=== PATIENT | male | born 1965 | race Hispanic/Latino ===

== ENCOUNTER 2017-08-07 20:34 | Inpatient (IN) | payer OTHER, SELFPAY ==
[~2017-08-07 20:34] MED LIST: ISOVUE-370 76%-LOCM 1 ML ONE
[2017-08-07 20:47] LABS: #Eosinphils 0.4 thou/uL (0.0-0.7); #Lymphocytes 2.6 thou/uL (1.20-3.40); #Monocytes 0.7 thou/uL (0.11-0.59); #Neutrophils 3.7 thou/uL (1.40-6.50); %Basophils 0.6 % (0.0-1.0); %Eosinophils 4.8 % (0.0-10.0); %Lymphocytes 34.6 % (21.0-51.0); %Monocytes 9.6 % (0.0-10.0); %Neutrophils 50.4 % (42.0-75.0); Hemoglobin 13.8 g/dL (14.0-18.0); Mean Corpuscular HGB CONC 33.6 g/dL (32.0-36.0); Mean Corpuscular Hemoglobin 30.5 pg (27.0-31.0); Mean Corpuscular Volume 90.9 fl (80.0-94.0); Mean Platelet Volume 8.1 fL (7.4-10.4); Platelet Count 179 thou/uL (130-400); RBC Distribution Width 12.9 % (11.5-14.5); Red Blood Cell (RBC) Count 4.53 mill/uL (4.70-6.10); White Blood Cell (WBC) Count 7.4 thou/uL (4.8-10.8)
[2017-08-07 20:54] LABS: PTT 28.6 SEC (22.9-36.1); Prothrombin Time 13.8 SEC (12.0-14.7)
[2017-08-07 20:59] LABS: ALT (SGPT) 23 U/L (8-55); AST (SGOT) 17 U/L (5-34); Albumin 4.2 g/dL (3.5-5.0); Alkaline Phosphatase 78 U/L (40-150); Anion Gap 11 mmol/L (10-20); BUN (Urea Nitrogen) 11 mg/dL (8.4-25.7); Bilirubin, Total 0.6 mg/dL (0.2-1.2); Calc. Creatinine Clearance 0 mL/min (70-130); Calcium 9.2 mg/dL (7.8-10.44); Carbon Dioxide 25 mmol/L (22-29); Chloride 106 mmol/L (98-107); Estimated GFR-MDRD Greater than 90; Globulin 3.1 g/dL (2.4-3.5); Glucose 155 mg/dL (70-105); Potassium 4.1 mmol/L (3.5-5.1); Protein, Total 7.3 g/dL (6.0-8.3); Sodium 138 mmol/L (136-145)
[2017-08-07 21:04] LABS: Troponin I Less than 0.010 ng/mL (< 0.028)
--- NOTE | 2017-08-07 21:24 | CT ---
CT HEAD NONCONTRAST: 08/07/17 INDICATION: Left upper extremity weakness. FINDINGS: There is no ventriculomegaly, mass effect, midline shift or acute intracranial hemorrhage. Mild mucos al thickening and paranasal sinuses is present. IMPRESSION: No acute intracranial abnormalities. Telephone call of findings placed at 2040 hours to Mayank Florence of the Emergency Department. Code CR POS: [id number]
--- NOTE | 2017-08-07 21:40 | CT ---
CTA HEAD WITH 3D VOLUME RENDERING CTA NECK WITH 3D VOLUME RENDERING 08/07/17 CLINICAL HISTORY: Left upper extremity weakness, tinnitus, headache, left side weakness. FINDINGS: There is no obvious occlusion or high grade stenosis involving arterial system of [place]. T he bilateral common and cervical internal carotid arteries reveals no high grade stenosis or occlusio n. There is a diminutive caliber of the right vertebral artery which along with beam hardening artifact precludes its reliable assessment. The left vertebral artery is grossly unremarkable and provides pre dominant supply to the basilar artery. There is mild peripheral calcifications seen at the left carot id bulb. Mild calcifications are seen at the right carotid siphon. Incidental note of granulomatous calcification. IMPRESSION: No significant thrombotic occlusion of the major arterial system of head and neck. Mild vascular dise ase is present. Diminutive caliber of, and superimposed beam hardening artifact does preclude assessm ent of the right vertebral artery. Notification of results placed at 2105 hours, 08/07/17. Code CR POS: [id number]
[2017-08-07] MEDS ORDERED: Labetalol HCl 100 MG/20 ML VIAL ONE (21:46)
[2017-08-07] MEDS ORDERED: Morphine 4 MG/ML VIAL ONE (22:00)
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
[2017-08-08 06:42] VITALS: BMI 42.1
[2017-08-08] MEDS ORDERED: hydrALAZINE 20 MG/ML VIAL SLOW IVP PRN (09:09)
[2017-08-08] MEDS ORDERED: Aspirin 325 mg Enteric Coated Tablet PO SCH (09:30)
[2017-08-08] MEDS ORDERED: Carvedilol 6.25 MG TAB PO SCH ×2 (09:30→21:00)
[2017-08-08] MEDS ORDERED: Amlodipine 10 MG TAB PO SCH (09:30)
[2017-08-08] MEDS ORDERED: traMADol HCl 50 MG TAB PO PRN (09:43)
[2017-08-08] MEDS ORDERED: HYDROcodone/Acetaminophen 5/325 mg Tablet PO PRN (09:45)
--- NOTE | 2017-08-08 11:56 | MRI ---
MRI OF BRAIN WITHOUT CONTRAST: Date: 08/08/17 COMPARISON: 06/27/16. HISTORY: Left upper extremity weakness. Stroke. TECHNIQUE: Multiplanar, multisequence MR images were obtained of the brain without contrast. FINDINGS: There are a few scattered foci of high FLAIR signal in the subcortical and periventricular white darren er, likely secondary to small vessel ischemic disease. No restricted diffusion is seen to suggest an acute infarction. There is no evidence of hydrocephalus, intracranial hemorrhage, or extra-axial flui d collection. The expected flow-voids are present. The corpus callosum, pituitary, and craniocervical junction are unremarkable. The calvarium and overlying soft tissues are unremarkable. There is mucosal thickening in the paranas al sinuses. The mastoid air cells are well aerated. IMPRESSION: 1. No evidence of acute intracranial abnormality. 2. Mild small vessel ischemic disease. POS: [facility]
[2017-08-08 13:39] LABS: Cardiac Risk 4.5 (Less than 4.5); Magnesium 1.9 mg/dL (1.6-2.6); Phosphorus 3.1 mg/dL (2.3-4.7)
[2017-08-08 16:17] VITALS: BP 137/79; TEMP 97.5
[2017-08-08] MEDS ORDERED: Atorvastatin Calcium 10 MG TAB PO SCH (21:00)
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
[2017-08-09] MEDS ORDERED: Non-Formulary Item 1 EACH (Triamterene/Hydrochlorothiazid [Triamterene-Hctz 37.5-25 Mg Cp PO SCH (09:00)
[2017-08-09] MEDS ORDERED: Triamterene/Hydrochlorothiazide 37.5 mg/25 mg Tablet PO SCH (09:00)
[2017-08-09] MEDS ORDERED: Aspirin 325 mg Enteric Coated Tablet PO SCH (09:00)
[2017-08-09] MEDS ORDERED: Amlodipine 10 MG TAB PO SCH (09:00)
[2017-08-09] MEDS ORDERED: Lisinopril 20 MG TAB PO SCH (09:00)
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
== END 2017-08-08 17:50 | DRG 69 ==
LOC: ERS 20:34 → 2SE 08-08 01:13
PROVIDERS: ADMIT Family Medicine; ATTEND Family Medicine
DX: G45.9 Transient cerebral ischemic attack, unspecified (principal); E11.22 Type 2 diabetes mellitus with diabetic chronic kidney disease; K74.60 Unspecified cirrhosis of liver; Z68.41 Body mass index [BMI] 40.0-44.9, adult; I25.2 Old myocardial infarction; J44.9 Chronic obstructive pulmonary disease, unspecified; I12.9 Hypertensive chronic kidney disease with stage 1 through stage 4 chronic kidney disease, or unspecified chronic kidney disease; N18.9 Chronic kidney disease, unspecified; M10.9 Gout, unspecified; F17.210 Nicotine dependence, cigarettes, uncomplicated; Z79.84 Long term (current) use of oral hypoglycemic drugs; I25.10 Atherosclerotic heart disease of native coronary artery without angina pectoris; D63.8 Anemia in other chronic diseases classified elsewhere; E66.01 Morbid (severe) obesity due to excess calories; E78.5 Hyperlipidemia, unspecified; R29.709 NIHSS score 9
CPT/HCPCS: 36415; 36416; 70450; 70496; 70498; 70551; 80053; 80061; 82553; 83735; 84100; 84484; 85025; 85610; 85730; 93005; 93306; 96374; 96375; J2270

== ENCOUNTER 2017-10-26 20:30 | Observation (INO) | payer OTHER, SELFPAY ==
[2017-10-26] MEDS ORDERED: Nitroglycerin 2% Ointment 1 INCH/1 GM Packet ONE (20:55)
[2017-10-26 21:02] LABS: #Basophils 0.1 thou/uL (0.0-0.2); #Eosinphils 0.3 thou/uL (0.0-0.7); #Lymphocytes 2.3 thou/uL (1.20-3.40); #Monocytes 0.7 thou/uL (0.11-0.59); #Neutrophils 4.5 thou/uL (1.40-6.50); %Basophils 0.8 % (0.0-1.0); %Eosinophils 3.9 % (0.0-10.0); %Lymphocytes 29.5 % (21.0-51.0); %Monocytes 8.5 % (0.0-10.0); %Neutrophils 57.3 % (42.0-75.0); Hemoglobin 14.5 g/dL (14.0-18.0); Mean Corpuscular HGB CONC 35.3 g/dL (32.0-36.0); Mean Corpuscular Hemoglobin 32.6 pg (27.0-31.0); Mean Corpuscular Volume 92.4 fL (78.0-98.0); Mean Platelet Volume 7.9 fL (7.4-10.4); Platelet Count 181 thou/uL (130-400); RBC Distribution Width 13.2 % (11.5-14.5); Red Blood Cell (RBC) Count 4.45 mill/uL (4.70-6.10); White Blood Cell (WBC) Count 7.9 thou/uL (4.8-10.8)
--- NOTE | 2017-10-26 21:08 | RAD ---
ONE VIEW CHEST: 10/26/17 HISTORY: Chest pain. COMPARISON: 07/26/16. FINDINGS: Portable upright chest demonstrates a normal cardiac silhouette. The lungs and pleural spaces are joie ar. No pneumothorax or osseous abnormalities. IMPRESSION: No acute cardiopulmonary process. POS: [facility]
[2017-10-26 21:21] LABS: ALT (SGPT) 20 U/L (8-55); AST (SGOT) 16 U/L (5-34); Albumin 3.8 g/dL (3.5-5.0); Alkaline Phosphatase 76 U/L (40-150); Anion Gap 13 mmol/L (10-20); BUN (Urea Nitrogen) 14 mg/dL (8.4-25.7); Bilirubin, Total 0.6 mg/dL (0.2-1.2); CK (CPK) 69 U/L (30-200); Calc. Creatinine Clearance 0 mL/min (70-130); Calcium 8.6 mg/dL (7.8-10.44); Carbon Dioxide 25 mmol/L (22-29); Chloride 107 mmol/L (98-107); Estimated GFR-MDRD 89; Globulin 2.8 g/dL (2.4-3.5); Glucose 163 mg/dL (70-105); Potassium 3.5 mmol/L (3.5-5.1); Protein, Total 6.6 g/dL (6.0-8.3); Sodium 141 mmol/L (136-145)
[2017-10-26 21:25] LABS: CKMB 1.6 ng/mL (0-6.6); Troponin I Less than 0.010 ng/mL (< 0.028)
--- NOTE | 2017-10-26 21:41 | CT ---
CT ANGIO OF CHEST WITH CONTRAST: 10/26/17 Multiple axial tomograms obtained through the chest following pulmonary angio protocol with multiplan ar reconstruction and 3D postprocessing. INDICATIONS: Chest pain. Shortness of breath. History of lung cancer. FINDINGS: Pulmonary arteries show adequate enhancement. No evidence of pulmonary embolus identified. The lungs are clear with no evidence of infiltrate. Mediastinum unremarkable. Thoracic aorta shows no evidence of dissection. Images through the upper abdomen unremarkable. IMPRESSION: 1. No evidence of pulmonary embolus. 2. No acute lung process identified. POS: [facility]
[2017-10-26] MEDS ORDERED: Ondansetron ODT 4 MG TAB ONE (22:08)
[2017-10-27 00:42] LABS: Troponin I 0.011 ng/mL (< 0.028)
[2017-10-27] MEDS ORDERED: Ondansetron ODT 4 MG TAB SL PRN (00:56)
[2017-10-27] MEDS ORDERED: Ondansetron HCl/PF 4 MG/2 ML Vial IVP PRN (00:56)
[2017-10-27] MEDS ORDERED: Acetaminophen 325 MG TAB PO PRN (00:56)
[2017-10-27 01:22] VITALS: BMI 42.1
[2017-10-27] MEDS ORDERED: Nitroglycerin 0.4 MG TAB (25 Tab Bottle) PO PRN (02:18)
[2017-10-27] MEDS ORDERED: PROVENTIL INHALER 6.7 G (200 INHALATIONS) INH PRN (02:18)
[2017-10-27] MEDS ORDERED: Bisacodyl 5 MG TAB PO PRN (02:18)
[2017-10-27] MEDS ORDERED: Bisacodyl 10 MG SUPP PR PRN (02:18)
[2017-10-27] MEDS ORDERED: Senokot 8.6 MG TAB PO PRN (02:18)
[2017-10-27 03:33] LABS: Troponin I 0.017 ng/mL (< 0.028)
[2017-10-27] MEDS: Nitroglycerin 2% Ointment 1 INCH/1 GM Packet TOP SCH ×3 (03:50→20:24)
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
[2017-10-27 04:46] LABS: #Eosinphils 0.4 thou/uL (0.0-0.7); #Lymphocytes 2.5 thou/uL (1.20-3.40); #Monocytes 0.7 thou/uL (0.11-0.59); #Neutrophils 4.3 thou/uL (1.40-6.50); %Basophils 0.4 % (0.0-1.0); %Eosinophils 4.7 % (0.0-10.0); %Lymphocytes 31.3 % (21.0-51.0); %Monocytes 9.2 % (0.0-10.0); %Neutrophils 54.4 % (42.0-75.0); Hemoglobin 13.3 g/dL (14.0-18.0); Mean Corpuscular HGB CONC 34.1 g/dL (32.0-36.0); Mean Corpuscular Hemoglobin 31.7 pg (27.0-31.0); Mean Corpuscular Volume 92.8 fL (78.0-98.0); Mean Platelet Volume 7.7 fL (7.4-10.4); Platelet Count 167 thou/uL (130-400); RBC Distribution Width 13.2 % (11.5-14.5); White Blood Cell (WBC) Count 7.9 thou/uL (4.8-10.8)
[2017-10-27 04:56] LABS: Hemoglobin A1c 6.6 % (4.0-6.0)
[2017-10-27 04:59] LABS: Anion Gap 10 mmol/L (10-20); BUN (Urea Nitrogen) 14 mg/dL (8.4-25.7); Calc. Creatinine Clearance 195 mL/min (70-130); Calcium 8.9 mg/dL (7.8-10.44); Carbon Dioxide 27 mmol/L (22-29); Chloride 105 mmol/L (98-107); Estimated GFR-MDRD Greater than 90; Glucose 149 mg/dL (70-105); Potassium 3.3 mmol/L (3.5-5.1); Sodium 139 mmol/L (136-145)
[2017-10-27] MEDS ORDERED: cloNIDine 0.1 MG TAB PO PRN (07:57)
[2017-10-27] MEDS ORDERED: hydrALAZINE 20 MG/ML VIAL SLOW IVP PRN (07:57)
[2017-10-27] MEDS ORDERED: HumaLOG 300 UNITS/3 ML VIAL SC PRN ×2 (07:59)
[2017-10-27] MEDS ORDERED: Dextrose 50% Abboject 50 ML SYRINGE SLOW IVP PRN (07:59)
[2017-10-27] MEDS ORDERED: Dextrose 5% in Water 1,000 ML IV PRN (07:59)
[2017-10-27 08:17] LABS: Bilirubin Negative (Negative); Blood, Urine Negative (Negative); Clarity CLEAR (Clear); Glucose, Urine (Dipstick) Negative (Negative); Leukocyte Negative (Negative); Nitrite Negative (Negative); Protein, Urine (Dipstick) Negative (Neg-Trace); Urobilinogen 0.2 mg/dL (0.2-1.0); pH, Urine 5.5 (5.0-9.0)
[2017-10-27 08:24] LABS: Specific Gravity, Urine 1.047 (1.002-1.036)
[2017-10-27] MEDS: Lisinopril 20 MG TAB PO SCH (09:04)
[2017-10-27] MEDS: Amlodipine 10 MG TAB PO SCH (09:04)
[2017-10-27] MEDS: Triamterene/Hydrochlorothiazide 37.5 mg/25 mg Tablet PO SCH (09:04)
[2017-10-27] MEDS: metFORMIN 500 MG TAB PO SCH ×2 (09:05→17:45)
[2017-10-27] MEDS: Aspirin 325 mg Enteric Coated Tablet PO SCH (09:05)
[2017-10-27] MEDS: Enoxaparin Sodium 30 MG/0.3 ML SYRINGE SC SCH (09:05)
[2017-10-27] MEDS: Carvedilol 3.125 MG TAB PO SCH ×2 (09:05→20:19)
[2017-10-27] MEDS ORDERED: Regadenoson 0.4 MG/5 ML SYRINGE ONE (14:01)
--- NOTE | 2017-10-27 14:09 | PDOC.EVN ---
Event Note - Event Note Event Note: pt seen and examined. awaiting stress test results.
[2017-10-27] MEDS ORDERED: traMADol HCl 50 MG TAB PO PRN (18:10)
[2017-10-27] MEDS ORDERED: Pravastatin Sodium 20 MG TAB PO SCH (21:00)
[2017-10-28] MEDS: Nitroglycerin 2% Ointment 1 INCH/1 GM Packet TOP SCH ×2 (05:37→12:01)
[2017-10-28] MEDS: metFORMIN 500 MG TAB PO SCH (08:00)
[2017-10-28] MEDS: Enoxaparin Sodium 30 MG/0.3 ML SYRINGE SC SCH (08:01)
[2017-10-28] MEDS: Triamterene/Hydrochlorothiazide 37.5 mg/25 mg Tablet PO SCH (08:01)
[2017-10-28] MEDS: Aspirin 325 mg Enteric Coated Tablet PO SCH (08:01)
[2017-10-28] MEDS: Lisinopril 20 MG TAB PO SCH (08:01)
[2017-10-28] MEDS: Carvedilol 3.125 MG TAB PO SCH (08:01)
[2017-10-28] MEDS: Amlodipine 10 MG TAB PO SCH (08:01)
--- NOTE | 2017-10-28 10:37 | NM ---
CARDIAC SPECT: CLINICAL HISTORY: 52-year-old male with chest pain, coronary artery disease. COPD, hypertension, diabetes, and dyslipidemia. TECHNIQUE: A myocardial perfusion scan was performed using the single isotope two day protocol with 31 mCi techn etium-99m sestamibi injected intravenously for both stress and rest images. Pharmacologic stress with Lexiscan was monitored and interpreted by Dr. Medley. FINDINGS: Homogeneous tracer distribution is seen in the myocardial segments on stress and rest images without fixed or reversible defects. GATED SPECT LVEF: 58%. WALL MOTION EXAM: Normal. IMPRESSION: Normal myocardial perfusion scan. POS: [facility]
[2017-10-28 11:46] VITALS: BP 128/87; TEMP 97.6
--- NOTE | 2017-10-28 19:31 | DIS ---
DATE OF ADMISSION: 10/27/2017 DATE OF DISCHARGE: 10/28/2017 CONDITION AT THE TIME DISCHARGE: Stable and improved. DISCHARGE DIAGNOSES: 1. Chest pain, noncardiac, acute coronary syndrome, ruled out. 2. Hypertension. 3. Noninsulin dependent diabetes mellitus. 4. Chronic obstructive pulmonary disease. 5. Morbid obesity. 6. Chronic kidney disease. 7. Gout. 8. History of myocardial x4. 9. Possible obesity hypoventilation syndrome. DISCHARGE DISPOSITION: Home. DISCHARGE MEDICATIONS: Glucophage 500 mg p.o. b.i.d., Maxzide 37.5/25 mg daily, pravastatin 20 mg da matthew, lisinopril 20 mg daily, Coreg 6.25 mg p.o. b.i.d., aspirin 325 mg daily, amlodipine 10 mg daily, albuterol sulfate as needed inhaler. PROCEDURES DONE IN THE HOSPITAL: 1. Chest x-ray, which is unremarkable. There is no evidence of pneumonia, effusion or edema. 2. CT angio of the thorax, which is negative for any lung pathology or any pulmonary embolism. 3. Nuclear medicine stress test, which is negative for any fixed or reversible ischemia. EF estimat ed at 58%. HISTORY OF PRESENTING ILLNESS: Mr. Liu is a 52-year-old male with comorbidities as mentioned abo ve, who came to the hospital with complaints of chest pain associated with shortness of breath and sw elling. Upon presentation, he was hemodynamically stable and his 12-lead EKG and cardiac enzymes wer e unremarkable. His D-dimer was somewhat elevated, so he underwent a CT angio of the chest which was negative for any pulmonary embolism. Given his multiple risk factors for cardiac disease, he was ad mitted to rule out acute coronary syndrome. He reported that he had a history of left heart catheter ization with one blood vessel blocked to 80%. He recently has been incarcerated, so has not been abl e to follow up with any doctors in the area. Please see admission history and physical for further d etails. HOSPITAL COURSE: The patient's hospital stay was rather unremarkable. He underwent a nuclear medici ne stress test, which was negative. He was given prescriptions for all of his medications as he is a bout to run out. He was referred to one of the free clinics in the community to establish care and f or further medication needs. He is instructed to eat a diabetic healthy diet and he refused consulta tion with a dietitian. He will also benefit from outpatient referral for sleep study to evaluate for possible sleep apnea and/or obesity hypoventilation syndrome. The patient did exhibit some chronic pain, which was treated in the hospital, but he was not discharged on any narcotics. His cardiac enz ymes were trended and remained negative x3. His hemoglobin A1c was checked and it is 6.6 He was seen and examined prior to discharge. PHYSICAL EXAMINATION: VITAL SIGNS: This morning, temperature 97.6, pulse of 52, respirations 20, saturating 96% on room ai r, blood pressure 128/87. GENERAL: No acute distress, walking around in the room. CHEST: Clear to auscultation without any wheezing, rales or rhonchi. CARDIOVASCULAR: Rate and rhythm is regular without any murmur, rubs or gallops. He is instructed for medication compliance as well as followup with a primary care physician. He jacky balized understanding.
[2017-10-29] MEDS ORDERED: Enoxaparin Sodium 40 MG/0.4 ML SYRINGE SC SCH (09:00)
--- NOTE | 2017-11-02 16:09 | EKG ---
Test Reason : Blood Pressure : / mmHG Vent. Rate : 079 BPM Atrial Rate : 079 BPM P-R Int : 156 ms QRS Dur : 086 ms QT Int : 418 ms P-R-T Axes : 045 061 072 degrees QTc Int : 479 ms Normal sinus rhythm Normal ECG Confirmed by GUICHO HERNANDEZ ([id number]), makeup editor JAMIN SHETH ([id number]) on 11/02/2017 4:09:05 PM Referred By: Confirmed By:GUICHO HERNANDEZ
== END 2017-10-28 12:56 | disposition home or self-care (01) ==
LOC: ERS 20:30 → 2SW 10-27 00:49
PROVIDERS: ADMIT Internal Medicine; ATTEND Internal Medicine
DX: R07.89 Other chest pain (principal); J44.9 Chronic obstructive pulmonary disease, unspecified; E66.01 Morbid (severe) obesity due to excess calories; E11.22 Type 2 diabetes mellitus with diabetic chronic kidney disease; I12.9 Hypertensive chronic kidney disease with stage 1 through stage 4 chronic kidney disease, or unspecified chronic kidney disease; N18.9 Chronic kidney disease, unspecified; F17.210 Nicotine dependence, cigarettes, uncomplicated; M10.9 Gout, unspecified; Z79.84 Long term (current) use of oral hypoglycemic drugs; Z79.899 Other long term (current) drug therapy; Z79.82 Long term (current) use of aspirin; Z68.41 Body mass index [BMI] 40.0-44.9, adult
CPT/HCPCS: 36415; 36416; 51798; 71045; 71275; 78452; 80048; 80053; 81003; 82553; 83036; 84484; 85025; 87324; 87449; 93005; 93017; 94760; 96372; 96374; A4216; A9500; G0378; J1650; J2270; J2785; Q0162

== ENCOUNTER 2017-11-02 20:17 | Emergency (ER) | payer SELFPAY ==
[2017-11-02 20:54] LABS: #Eosinphils 0.4 thou/uL (0.0-0.7); #Lymphocytes 2.4 thou/uL (1.20-3.40); #Monocytes 0.7 thou/uL (0.11-0.59); #Neutrophils 3.7 thou/uL (1.40-6.50); %Basophils 0.4 % (0.0-1.0); %Eosinophils 5.4 % (0.0-10.0); %Lymphocytes 32.8 % (21.0-51.0); %Monocytes 9.9 % (0.0-10.0); %Neutrophils 51.4 % (42.0-75.0); Hemoglobin 13.7 g/dL (14.0-18.0); Mean Corpuscular HGB CONC 34.4 g/dL (32.0-36.0); Mean Corpuscular Volume 93.2 fL (78.0-98.0); Mean Platelet Volume 8.3 fL (7.4-10.4); Platelet Count 163 thou/uL (130-400); RBC Distribution Width 12.8 % (11.5-14.5); Red Blood Cell (RBC) Count 4.29 mill/uL (4.70-6.10); White Blood Cell (WBC) Count 7.2 thou/uL (4.8-10.8)
[2017-11-02 21:14] LABS: ALT (SGPT) 18 U/L (8-55); AST (SGOT) 15 U/L (5-34); Albumin 3.7 g/dL (3.5-5.0); Alkaline Phosphatase 77 U/L (40-150); Anion Gap 13 mmol/L (10-20); BUN (Urea Nitrogen) 16 mg/dL (8.4-25.7); Bilirubin, Total 0.5 mg/dL (0.2-1.2); CK (CPK) 86 U/L (30-200); Calc. Creatinine Clearance 0 mL/min (70-130); Calcium 8.5 mg/dL (7.8-10.44); Carbon Dioxide 23 mmol/L (22-29); Chloride 107 mmol/L (98-107); Estimated GFR-MDRD 75; Globulin 2.8 g/dL (2.4-3.5); Glucose 203 mg/dL (70-105); Lipase 64 U/L (8-78); Magnesium 1.9 mg/dL (1.6-2.6); Potassium 3.5 mmol/L (3.5-5.1); Protein, Total 6.5 g/dL (6.0-8.3); Sodium 139 mmol/L (136-145)
[2017-11-02] MEDS ORDERED: Meclizine HCl 25 MG TAB ONE (22:36)
[2017-11-02] MEDS ORDERED: predniSONE 20 MG TAB ONE (22:36)
--- NOTE | 2017-11-02 22:43 | RAD ---
SINGLE VIEW OF THE CHEST: 11/02/17 COMPARISON: 10/26/17. HISTORY: Chest pain in the middle of the chest. FINDINGS: Single view of the chest shows a cardiomediastinal silhouette which is upper limits of normal in size . there is a calcified left hilar lymph node There is no evidence of consolidation, mass or pleural e ffusion. Degenerative changes are see in the spine. IMPRESSION: No evidence of acute cardiopulmonary disease. POS: [facility]
== END 2017-11-02 23:22 | disposition home or self-care (01) ==
LOC: ERS 20:17
DX: R07.2 Precordial pain (principal); R42 Dizziness and giddiness; G89.29 Other chronic pain; J44.9 Chronic obstructive pulmonary disease, unspecified; M10.9 Gout, unspecified; I12.9 Hypertensive chronic kidney disease with stage 1 through stage 4 chronic kidney disease, or unspecified chronic kidney disease; E11.22 Type 2 diabetes mellitus with diabetic chronic kidney disease; N18.9 Chronic kidney disease, unspecified; I25.2 Old myocardial infarction; G43.909 Migraine, unspecified, not intractable, without status migrainosus; F41.9 Anxiety disorder, unspecified; F32.9 Major depressive disorder, single episode, unspecified; F17.210 Nicotine dependence, cigarettes, uncomplicated; Z71.6 Tobacco abuse counseling; Z86.73 Personal history of transient ischemic attack (TIA), and cerebral infarction without residual deficits; Z79.84 Long term (current) use of oral hypoglycemic drugs
CPT/HCPCS: 71045; 80053; 82550; 83690; 83735; 85025; 85379; 93005; 99406; J7506; J7620

== ENCOUNTER 2018-03-02 01:12 | Observation (INO) | payer SELFPAY ==
[2018-03-02] MEDS ORDERED: Mag-Al 1200 mg/1200 mg/30 ML UDCUP ONE (01:23)
[2018-03-02] MEDS ORDERED: Lidocaine Viscous Sol 2% 15 ml UD Cup ONE (01:23)
[2018-03-02 01:51] LABS: #Eosinphils 0.4 thou/uL (0.0-0.7); #Lymphocytes 2.2 thou/uL (1.20-3.40); #Monocytes 0.7 thou/uL (0.11-0.59); #Neutrophils 4.8 thou/uL (1.40-6.50); %Basophils 0.6 % (0.0-1.0); %Eosinophils 4.8 % (0.0-10.0); %Lymphocytes 27.3 % (21.0-51.0); %Monocytes 8.1 % (0.0-10.0); %Neutrophils 59.3 % (42.0-75.0); Hemoglobin 14.3 g/dL (14.0-18.0); Mean Corpuscular HGB CONC 32.8 g/dL (32.0-36.0); Mean Corpuscular Hemoglobin 31.2 pg (27.0-31.0); Mean Corpuscular Volume 94.9 fL (78.0-98.0); Mean Platelet Volume 8.8 fL (7.4-10.4); Platelet Count 173 thou/uL (130-400); RBC Distribution Width 12.7 % (11.5-14.5); Red Blood Cell (RBC) Count 4.58 mill/uL (4.70-6.10); White Blood Cell (WBC) Count 8.1 thou/uL (4.8-10.8)
[2018-03-02 02:16] LABS: ALT (SGPT) 26 U/L (8-55); AST (SGOT) 20 U/L (5-34); Albumin 3.6 g/dL (3.5-5.0); Alkaline Phosphatase 69 U/L (40-150); Anion Gap 14 mmol/L (10-20); BUN (Urea Nitrogen) 11 mg/dL (8.4-25.7); Bilirubin, Total 0.3 mg/dL (0.2-1.2); Calc. Creatinine Clearance 0 mL/min (70-130); Calcium 8.8 mg/dL (7.8-10.44); Carbon Dioxide 17 mmol/L (22-29); Chloride 107 mmol/L (98-107); Estimated GFR-MDRD 78; Globulin 2.9 g/dL (2.4-3.5); Glucose 281 mg/dL (70-105); Lipase 58 U/L (8-78); Potassium 4.1 mmol/L (3.5-5.1); Protein, Total 6.5 g/dL (6.0-8.3); Sodium 134 mmol/L (136-145)
[2018-03-02 02:18] LABS: CKMB 1.7 ng/mL (0-6.6)
[2018-03-02 02:27] LABS: Troponin I Less than 0.010 ng/mL (< 0.028)
[2018-03-02] MEDS ORDERED: Nitroglycerin 2% Ointment 1 INCH/1 GM Packet ONE (02:59)
[2018-03-02] MEDS ORDERED: HYDROcodone/Acetaminophen 5/325 mg Tablet ONE (03:39)
[2018-03-02] MEDS ORDERED: Ketorolac Tromethamine 30 MG/ML VIAL ONE (05:54)
[2018-03-02 06:26] LABS: Acetaminophen Less than 6.0 mcg/mL (10.0-30.0); Alcohol Less than 10 mg/dL (Less than 10); Salicylate Less than 8.0 mg/dL (15.0-30.0)
[2018-03-02 06:30] LABS: Bilirubin Negative (Negative); Blood, Urine Negative (Negative); Clarity CLEAR (Clear); Glucose, Urine (Dipstick) >=1000 mg/dL (Negative); Leukocyte Negative (Negative); Nitrite Negative (Negative); Protein, Urine (Dipstick) 30 mg/dL (Neg-Trace); Specific Gravity, Urine 1.043 (1.002-1.036); Urobilinogen 0.2 mg/dL (0.2-1.0)
[2018-03-02 06:33] LABS: Bacteria/HPF None Seen HPF (None Seen); Hyaline Casts/LPF 0-3 HYALINE CAST LPF (0-3 Hyaline); Pathc Cast-AUWi Flag 0.72 (0-2.49); RBC/HPF 0-3 HPF (0-3); Squamous Epithelial 0-3 HPF (0-3); WBC/HPF 0-3 HPF (0-3)
[2018-03-02 06:44] LABS: Amphetamine Not Detected (NotDetected); Barbiturates Screen Not Detected (NotDetected); Benzodiazepine Screen Not Detected (NotDetected); Cocaine Metabolite Screen Not Detected (NotDetected); Medtox Control Line Valid? VALID (VALID); Medtox Reader # READER 4; Methadone Not Detected (NotDetected); Methamphetamine Not Detected (NotDetected); Opiate Screen Not Detected (NotDetected); Oxycodone Screen Not Detected (NotDetected); Phencyclidine (PCP) Not Detected (NotDetected); THC/Cannabinoid Screen Not Detected (NotDetected); Tricyclic Screen Not Detected (NotDetected)
[2018-03-02] MEDS ORDERED: Ondansetron PF 4 MG/2 ML Vial IVP PRN (06:55)
[2018-03-02] MEDS ORDERED: Ondansetron ODT 4 MG TAB PO PRN (06:56)
[2018-03-02] MEDS ORDERED: Acetaminophen 325 MG TAB PO PRN ×2 (06:56→09:29)
[2018-03-02 07:34] VITALS: BMI 46.1
[2018-03-02] MEDS ORDERED: HumaLOG 300 UNITS/3 ML VIAL SC PRN ×2 (09:29)
[2018-03-02] MEDS ORDERED: predniSONE 20 MG TAB PO STA (09:29)
[2018-03-02] MEDS ORDERED: Dextrose 50% Abboject 50 ML SYRINGE SLOW IVP PRN (09:29)
[2018-03-02] MEDS ORDERED: Dextrose 5% in Water 1,000 ML IV PRN (09:29)
[2018-03-02] MEDS ORDERED: Guaifenesin DM 100-10/5 ML UDCUP PO PRN (09:29)
[2018-03-02] MEDS ORDERED: Enoxaparin Sodium 40 MG/0.4 ML SYRINGE SC SCH (09:45)
[2018-03-02] MEDS ORDERED: Amlodipine 10 MG TAB PO SCH (09:45)
[2018-03-02] MEDS ORDERED: Aspirin 325 mg Enteric Coated Tablet PO SCH (09:45)
[2018-03-02] MEDS ORDERED: Triamterene/Hydrochlorothiazid 75 mg/50 mg Tablet PO SCH (09:45)
[2018-03-02] MEDS ORDERED: Lisinopril 20 MG TAB PO SCH (09:45)
[2018-03-02 10:00] LABS: Troponin I 0.451 ng/mL (< 0.028)
--- NOTE | 2018-03-02 10:36 | RAD ---
PORTABLE CHEST 1 VIEW: DATE: 03/02/2018. TIME: 1:32 a.m. HISTORY: Chest pain. FINDINGS: Comparison is made with the exam of 11/02/2017. The heart size is borderline. No focal areas of conso lidation, pneumothoraces, gunjan pulmonary edema, or pleural effusions are seen. IMPRESSION: No acute process. POS: [facility]
--- NOTE | 2018-03-02 11:06 | CT ---
PRELIMINARY REPORT/[facility]/EMERGENTY AFTER-HOURS PROCEDURE CT Angiography Chest With Intravenous Contrast EXAM DATE/TIME: 03/02/2018 4:05 AM CLINICAL HISTORY: 52 years old, male; Pain; Chest pain; Type not specified; Patient HX: Er7, previous on pacs, er dr melendez quests a late pe study to also rule out disection. M52 presents to ed via ems C/O sudden onset cp whi le he was laying down watching tv, but first began feeling SOB around 13: 30. Ems gave aspirin, nitro, and 2 duonebs en route. Room air at 92%, got up to 98%. PT reports pain to l arm, centered on sternum, chest tender to palpation. PT reports he has had three heart attacks (does not know when), b ut reports he has never felt like this before. PT reports he has been coughing up more phlegm lately. PT also reports his legs and hands have been swelling more lately, and confirms he takes water pills . Ems reports PT admits has not been very compliant w/ his meds lately. PT does not use o2 at home, b ut normally takes x4 breathing treatments per day. PT received stress test in september or october. PT report s x2 days back tender he was having diarrhea, but has not had it since then, denies vomiting and fever. Pmhx of asthma and copd. ; Additional info: Er dr looking for pe vs disection. Pe obliques provided. Sub o ptimal- late contrast for pe TECHNIQUE: Axial computed tomographic angiography images of the chest with intravenous contrast using CT angiogr aphy protocol. MIP and 3D reconstructed images were created and reviewed. COMPARISON: No relevant prior studies available. FINDINGS: Pulmonary arteries: Contrast bolus is suboptimal but adequate to evaluate the pulmonary arteries. Allie luation of the distal subsegmental pulmonary arteries in the lower lungs is limited by artifact. No e vidence of PE. Aorta: Normal aorta. Lungs: Lungs are clear allowing for expiratory phase imaging. Pleural space: Normal. No pneumothorax. No pleural effusion. Heart: Normal. No cardiomegaly. No pericardial effusion. Mediastinum: Esophagus is unremarkable. Bones/joints: Unremarkable. No acute fracture. Soft tissues: Unremarkable. Lymph nodes: Unremarkable. No enlarged lymph nodes. IMPRESSION: No acute findings. CT Angiography Abdomen With Intravenous Contrast EXAM DATE/TIME: 03/02/2018 4:05 AM TECHNIQUE: Axial computed tomographic angiography images of the abdomen with intravenous contrast material, incl uding non-contrast images if performed. MIP and/or 3D reconstructed images were created and reviewed. COMPARISON: No relevant prior studies available. FINDINGS: Lungs: Unremarkable. No consolidation. VASCULATURE: Aorta: Abdominal aorta is minimally atherosclerotic. No aneurysm or acute aortic syndrome. Celiac Trunk and Mesenteric Arteries: No occlusion or significant stenosis. Renal Arteries: No occlusion or significant stenosis. ABDOMEN: Liver: Normal. No mass. Gallbladder and bile ducts: Normal. No calcified stones. No ductal dilation.Pancreas: Normal. No duct al dilation. Spleen: Normal. No splenomegaly. Adrenals: Unremarkable. Kidneys and ureters: 3 cm heterogeneous right renal lesion does not meet strict CT criteria for a cys t and is indeterminate. Neoplasm not excluded. Stomach and bowel: Unremarkable. No obstruction. No mucosal thickening. Appendix: Normal appendix. Intraperitoneal space: Unremarkable. No free air. No significant fluid collection. Bones/joints: Unremarkable. No acute fracture. No dislocation. Soft tissues: Unremarkable. Lymph nodes: Unremarkable. No enlarged lymph nodes. IMPRESSION: 3 cm heterogeneous right renal lesion does not meet strict CT criteria for a cyst and is indeterminat e. Neoplasm not excluded. Thank you for allowing us to participate in the care of your patient. Dictated and Authenticated by: Get Pierre MD 03/02/2018 5:25 AM Central Time ([place] & [place]) FINAL REPORT EMERGENT AFTER HOURS CT ANGIO OF CHEST AND ABDOMEN PERFORMED WITH INTRAVENOUS CONTRAST ENHANCEMENT WI TH 3D RECONSTRUCTIONS: HISTORY: Chest pain, shortness of breath. Also, a history of some diarrhea 2 days prior to admission. This w as done per the aortic dissection protocol. FINDINGS: Lungs show some mixed areas of slight ground-glass opacity and more lucent lung. Some of these martines es could be related to air trapping. Findings are somewhat nonspecific. There is no significant mediastinal or hilar lymphadenopathy noted. Once again, there is some calcif ication just lateral to the main pulmonary artery trunk. There are coronary artery calcifications noted. Contrast opacification is suboptimal. I can make no real comment on the pulmonary arteries. No obvi ous large embolus seen. The thoracic aorta is normal in caliber without signs of dissection. Contra st is felt to be adequate for evaluation for dissection. CT ANGIO OF ABDOMEN PERFORMED WITH CONTRAST: The liver, spleen, pancreas, and gallbladder regions appear unremarkable on this angiograph phase exa m. Right and left adrenal glands are normal in appearance. Right and left kidneys are normal in size. There is an incompletely characterized hypodense mass involving the posterior cortex of the more mid pole region of the right kidney. It measures approximately 3 cm in size. The margins are somewhat i ll-defined on this examination. The CT Hounsfield unit numbers do not definitely correspond to a cys t with numbers of approximately 21. It does appear when compared to the previous 07/26/2016 study to perhaps be slightly increased in size, although the difference is fairly minimal. There is no signif icant periaortic or mesenteric adenopathy. Angiographic portion of this exam shows a normal-caliber aorta without dissection. IMPRESSION: 1. No evidence of aortic aneurysm or dissection. 2. A 3 cm indeterminate right renal mass showing perhaps some very slightly interval increase in siz e as compared to th 07/26/2016 study. Further evaluation with CT using renal mass protocol is recomm ended. 3. This report is in agreement with the temporary report issued by [facility]. POS: [facility]
[2018-03-02 11:50] VITALS: BP 134/74; TEMP 98.3
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
[2018-03-02] MEDS ORDERED: ISOVUE-370 76%-LOCM 1 ML ONE (14:24)
[2018-03-02] MEDS ORDERED: metFORMIN 500 MG TAB PO SCH (17:00)
[2018-03-02] MEDS ORDERED: Carvedilol 3.125 MG TAB PO SCH (21:00)
[2018-03-02] MEDS ORDERED: Famotidine 20 MG TAB PO SCH (21:00)
[2018-03-02] MEDS ORDERED: Senokot S 8.6-50 MG TAB PO PRN (21:00)
[2018-03-02] MEDS ORDERED: Simvastatin 5 MG TAB PO SCH (21:00)
[2018-03-03] MEDS ORDERED: Amlodipine 10 MG TAB PO SCH (09:00)
[2018-03-03] MEDS ORDERED: Triamterene/Hydrochlorothiazid 75 mg/50 mg Tablet PO SCH (09:00)
[2018-03-03] MEDS ORDERED: Enoxaparin Sodium 40 MG/0.4 ML SYRINGE SC SCH (09:00)
[2018-03-03] MEDS ORDERED: Aspirin 325 mg Enteric Coated Tablet PO SCH (09:00)
[2018-03-03] MEDS ORDERED: Lisinopril 20 MG TAB PO SCH (09:00)
--- NOTE | 2018-03-14 17:04 | EKG ---
Test Reason : Blood Pressure : / mmHG Vent. Rate : 104 BPM Atrial Rate : 104 BPM P-R Int : 150 ms QRS Dur : 086 ms QT Int : 368 ms P-R-T Axes : 042 067 049 degrees QTc Int : 483 ms Sinus tachycardia with occasional Premature ventricular complexes Otherwise normal ECG Confirmed by GUICHO HERNANDEZ ([id number]), staff editor СВЕТЛАНА SUMMERS ([id number]) on 03/14/2018 5:04:09 PM Referred By: Confirmed By:GUICHO HERNANDEZ
--- NOTE | 2018-03-14 17:04 | EKG ---
Test Reason : Blood Pressure : / mmHG Vent. Rate : 086 BPM Atrial Rate : 086 BPM P-R Int : 166 ms QRS Dur : 092 ms QT Int : 366 ms P-R-T Axes : 050 064 098 degrees QTc Int : 437 ms Sinus rhythm with frequent Premature ventricular complexes Nonspecific T wave abnormality Abnormal ECG Confirmed by GUICHO HERNANDEZ ([id number]), production editor СВЕТЛАНА SUMMERS ([id number]) on 03/14/2018 5:04:10 PM Referred By: Confirmed By:GUICHO HERNANDEZ
== END 2018-03-02 15:49 | disposition home or self-care (01) ==
LOC: ERS 01:12 → 2SW 05:45
PROVIDERS: ADMIT Internal Medicine; ATTEND Internal Medicine
DX: J44.1 Chronic obstructive pulmonary disease with (acute) exacerbation (principal); I10 Essential (primary) hypertension; E11.9 Type 2 diabetes mellitus without complications; E66.9 Obesity, unspecified; E78.5 Hyperlipidemia, unspecified; I25.10 Atherosclerotic heart disease of native coronary artery without angina pectoris; Z87.891 Personal history of nicotine dependence; Z79.84 Long term (current) use of oral hypoglycemic drugs; Z79.899 Other long term (current) drug therapy
CPT/HCPCS: 36415; 36416; 71045; 71275; 80053; 80306; 80307; 81003; 81015; 82553; 83690; 83880; 84484; 85025; 90471; 90686; 93005; 94640; 94760; 96361; 96372; 96374; G0008; G0378; J1650; J1885; J7506; J7620

== ENCOUNTER 2018-08-24 17:46 | Emergency (ER) | payer SELFPAY ==
[2018-08-24] MEDS ORDERED: Aspirin Chewable 81 MG TAB ONE (18:10)
[2018-08-24] MEDS ORDERED: Nitroglycerin 0.4 MG TAB 1 EACH ONE (18:12)
[2018-08-24 18:23] LABS: #Basophils 0.1 thou/uL (0.0-0.2); #Eosinphils 0.3 thou/uL (0.0-0.7); #Lymphocytes 2.2 thou/uL (1.20-3.40); #Monocytes 0.6 thou/uL (0.11-0.59); #Neutrophils 3.6 thou/uL (1.40-6.50); %Eosinophils 4.4 % (0.0-10.0); %Lymphocytes 32.4 % (21.0-51.0); %Monocytes 9.1 % (0.0-10.0); %Neutrophils 53.2 % (42.0-75.0); Hemoglobin 15.3 g/dL (14.0-18.0); Mean Corpuscular HGB CONC 33.5 g/dL (32.0-36.0); Mean Corpuscular Hemoglobin 30.6 pg (27.0-31.0); Mean Corpuscular Volume 91.4 fL (78.0-98.0); Mean Platelet Volume 8.9 fL (7.4-10.4); Platelet Count 159 thou/uL (130-400); RBC Distribution Width 12.3 % (11.5-14.5); Red Blood Cell (RBC) Count 4.99 mill/uL (4.70-6.10); White Blood Cell (WBC) Count 6.8 thou/uL (4.8-10.8)
[2018-08-24 18:29] LABS: PTT 28.3 SEC (22.9-36.1); Prothrombin Time 13.2 SEC (12.0-14.7)
--- NOTE | 2018-08-24 18:33 | RAD ---
PORTABLE CHEST: History: Chest pain FINDINGS: Lung castillo are clear. Heart size is upper normal. No evidence of vascular congestion, effusion, or i nfiltrate. IMPRESSION: No acute abnormality. POS: [facility]
[2018-08-24 18:43] LABS: ALT (SGPT) 29 U/L (8-55); AST (SGOT) 17 U/L (5-34); Albumin 4.2 g/dL (3.5-5.0); Alkaline Phosphatase 105 U/L (40-150); Anion Gap 13 mmol/L (10-20); BUN (Urea Nitrogen) 17 mg/dL (8.4-25.7); Bilirubin, Total 0.5 mg/dL (0.2-1.2); Calc. Creatinine Clearance 0 mL/min (70-130); Calcium 9.4 mg/dL (7.8-10.44); Carbon Dioxide 25 mmol/L (22-29); Chloride 104 mmol/L (98-107); Estimated GFR-MDRD 60; Globulin 2.8 g/dL (2.4-3.5); Glucose 296 mg/dL (70-105); Lipase 68 U/L (8-78); Potassium 4.2 mmol/L (3.5-5.1); Sodium 138 mmol/L (136-145)
[2018-08-24] MEDS ORDERED: Furosemide 20 MG/2 ML VIAL ONE (20:10)
--- NOTE | 2018-08-24 22:06 | CT ---
CT PULMONARY ANGIOGRAM WITH IV CONTRAST AND 3D POST PROCESSING: History: Chest pain, difficulty breathing. FINDINGS: There is inadequate opacification of the pulmonary artery vasculature (124 Hounsfield units in the ma in pulmonary artery) making this a non-diagnostic exam for evaluation of pulmonary embolism. There are vascular calcifications without evidence of aneurysm or dilatation of the thoracic aorta. N o pleural or pericardial effusions are seen. No pneumothoraces, lobar consolidation, pulmonary nodule s or lung masses are identified. There are degenerative changes in the spine. There are changes of fatty infiltration of the liver. IMPRESSION: Nondiagnostic for pulmonary embolism. POS: [facility]
== END 2018-08-24 22:15 | disposition left against medical advice (07) ==
LOC: ERS 17:46
DX: R07.2 Precordial pain (principal); E78.5 Hyperlipidemia, unspecified; J44.9 Chronic obstructive pulmonary disease, unspecified; E11.9 Type 2 diabetes mellitus without complications; M10.9 Gout, unspecified; I10 Essential (primary) hypertension; G43.909 Migraine, unspecified, not intractable, without status migrainosus; F41.9 Anxiety disorder, unspecified; F32.9 Major depressive disorder, single episode, unspecified; Z87.891 Personal history of nicotine dependence; Z79.84 Long term (current) use of oral hypoglycemic drugs; Z79.51 Long term (current) use of inhaled steroids; Z79.899 Other long term (current) drug therapy
CPT/HCPCS: 36415; 71045; 71275; 80053; 83690; 83880; 84484; 85025; 85379; 85610; 85730; 93005; 94760; 96374; J1940

== ENCOUNTER 2019-02-09 03:26 | Observation (INO) | payer SELFPAY ==
[2019-02-09] MEDS ORDERED: Nitroglycerin 0.4 MG TAB 1 EACH ONE ×2 (03:33→03:37)
[2019-02-09] MEDS ORDERED: Nitroglycerin 50 MG/250 ML BOT 0 ML ONE (03:37)
[2019-02-09] MEDS ORDERED: Nitroglycerin 2% Ointment 1 INCH/1 GM Packet ONE ×2 (03:37→04:56)
[2019-02-09 03:49] LABS: #Eosinphils 0.3 thou/uL (0.0-0.7); #Lymphocytes 1.8 thou/uL (1.20-3.40); #Monocytes 0.9 thou/uL (0.11-0.59); #Neutrophils 7.6 thou/uL (1.40-6.50); %Basophils 0.1 % (0.0-1.0); %Eosinophils 2.6 % (0.0-10.0); %Lymphocytes 17.2 % (21.0-51.0); %Monocytes 8.1 % (0.0-10.0); %Neutrophils 71.9 % (42.0-75.0); Hemoglobin 16.3 g/dL (14.0-18.0); Mean Corpuscular HGB CONC 36.1 g/dL (32.0-36.0); Mean Corpuscular Hemoglobin 32.6 pg (27.0-31.0); Mean Corpuscular Volume 90.3 fL (78.0-98.0); Mean Platelet Volume 8.6 fL (7.4-10.4); Platelet Count 170 thou/uL (130-400); RBC Distribution Width 11.8 % (11.5-14.5); Red Blood Cell (RBC) Count 5.01 mill/uL (4.70-6.10); White Blood Cell (WBC) Count 10.6 thou/uL (4.8-10.8)
[2019-02-09] MEDS ORDERED: Ondansetron PF 4 MG/2 ML Vial ONE (03:58)
[2019-02-09] MEDS ORDERED: Morphine 4 MG/ML VIAL ONE (03:58)
[2019-02-09 04:11] LABS: ALT (SGPT) 34 U/L (8-55); AST (SGOT) 21 U/L (5-34); Albumin 4.3 g/dL (3.5-5.0); Alkaline Phosphatase 91 U/L (40-110); Anion Gap 14 mmol/L (10-20); BUN (Urea Nitrogen) 14 mg/dL (8.4-25.7); Bilirubin, Total 0.6 mg/dL (0.2-1.2); Calc. Creatinine Clearance 0 mL/min (70-130); Calcium 9.1 mg/dL (7.8-10.44); Carbon Dioxide 24 mmol/L (22-29); Chloride 103 mmol/L (98-107); Estimated GFR-MDRD 82; Globulin 3.2 g/dL (2.4-3.5); Glucose 312 mg/dL (70-105); Potassium 3.8 mmol/L (3.5-5.1); Protein, Total 7.5 g/dL (6.0-8.3); Sodium 137 mmol/L (136-145)
[2019-02-09] MEDS ORDERED: Aspirin Chewable 81 MG TAB ONE (05:02)
[2019-02-09] MEDS ORDERED: Nitroglycerin 0.4 MG TAB (25 Tab Bottle) PO PRN (05:09)
[2019-02-09] MEDS ORDERED: Dextrose 5% in Water 1,000 ML IV PRN (05:12)
[2019-02-09] MEDS ORDERED: Dextrose 50% Abboject 50 ML SYRINGE SLOW IVP PRN (05:12)
[2019-02-09] MEDS ORDERED: HumaLOG 300 UNITS/3 ML VIAL SC PRN (05:12)
[2019-02-09] MEDS ORDERED: Lidocaine Viscous Sol 2% 15 ml UD Cup ONE (05:29)
[2019-02-09] MEDS ORDERED: Mag-Al 1200 mg/1200 mg/30 ML UDCUP ONE (05:29)
[2019-02-09 06:04] LABS: Troponin I 0.014 ng/mL (< 0.028)
--- NOTE | 2019-02-09 06:06 | HP ---
CHIEF COMPLAINT: Chest pain. HISTORY OF PRESENT ILLNESS: Mr. Liu is a 53-year-old male, who has a past medical history of diabetes, hypertension, coronary artery disease, TIA, among others, presented to the emergency room with chest pain 10/10 that began in the epigastric area, then moved to the chest. It started around 5 p.m. last night, gotten worse. The patient has a history of 2 heart catheterizations, but no stents. The patient stated that he had a history of [place] x2. In the emergency room, the patient's blood pressure was 230/130. After nitroglycerin was given, his blood pressure is 160/105. Initial workup including troponin and EKG, no acute finding. Given the patient's presentation and risk factors, the patient is being admitted to the hospital for further management. PAST MEDICAL HISTORY: 1. Hypertension. 2. Diabetes mellitus. 3. COPD. 4. TIA. 5. Gout. 6. Myocardial infarction? 7. Cigarette smoker. PAST SURGICAL HISTORY: Heart catheterization x2 on 11/29/2014. He was told he has 80% blockage, no stent was placed. SOCIAL HISTORY: He is a former smoker, denies alcohol drinking. FAMILY HISTORY: Reviewed. ALLERGIES: NO KNOWN ALLERGIES. HOME MEDICATIONS: Please see home medication reconciliation form for updated medications. REVIEW OF SYSTEMS: Review of 14 systems negative except what is mentioned in history of present illness. PHYSICAL EXAMINATION: GENERAL: The patient is awake, alert, in moderate distress. VITAL SIGNS: Blood pressure was 230/130. Latest blood pressure is 170/100. HEAD: Normocephalic, atraumatic. NECK: Supple. No JVD. CHEST: Fair bilateral air entry. HEART: S1, S2. Regular. ABDOMEN: Obese, soft, bowel sounds present. NEUROLOGIC: Awake, alert, oriented x3. PSYCHIATRIC: Normal mood. EXTREMITIES: No clubbing or cyanosis. LABORATORY DATA: Glucose is 112. Troponin is less than 0.01. CTA of the chest was done, which was reported as negative for dissection. ASSESSMENT: 1. Acute chest pain, rule out acute coronary syndrome. 2. Hypertensive urgency. 3. Coronary artery disease with history of myocardial infarction with 80% blockage as per patient? 4. Diabetes mellitus, hyperglycemia. 5. Obesity. PLAN: 1. Admit. 2. Telemetry monitoring. 3. Aspirin. 4. Serial cardiac enzymes. 5. Monitor and control blood pressure. 6. 2D echo. 7. We will keep the patient n.p.o. for now for possible stress test after reassessment in the morning. 8. Consult Cardiology for evaluation and further management. 9. Reconcile home medications. 10. Deep venous thrombosis prophylaxis, early ambulation. 11. Expected length of stay, at least 1 midnight if the patient is stable and further workup negative. Job ID: [id number]
[2019-02-09] MEDS ORDERED: hydrALAZINE 20 MG/ML VIAL SLOW IVP PRN (06:43)
[2019-02-09 06:48] VITALS: BMI 45.5
[2019-02-09] MEDS ORDERED: FLU VACC QS2019-20(6MOS UP)/PF 60 MCG/0.5 ML SYRINGE IM ONE (07:15)
[2019-02-09 08:40] LABS: Troponin I 0.012 ng/mL (< 0.028)
--- NOTE | 2019-02-09 08:52 | CT ---
PRELIMINARY REPORT/[facility]/EMERGENCY AFTER HOURS PROCEDURE: PROCEDURE INFORMATION: Exam: CT Angiography Chest With Contrast Exam date and time: 02/09/2019 3:50 AM Clinical history: 53 years old, male; Abdominal pain; Generalized; Patient HX: [id number] presents to ED wit h chest pain. Reports pain 10/10, began in abdomen, then moved to chest. Pain began around 5pm last n ight, gotten progressively worse. No HX of similar pain. Hx- 2 heart caths, last one 2 years ago, no stents, diabetes, high cholesterol, hbp with medication, reports he is medication compliant but BP no rmally runs high TECHNIQUE: Imaging protocol: Computed tomographic angiography of the chest with intravenous contrast. 3D renderi ng: MIP reconstructed images were created and reviewed. COMPARISON: No relevant prior studies available. FINDINGS: Pulmonary arteries: Suboptimal contrast bolus to evaluate pulmonary arteries. No evidence of PE. Aorta: Normal thoracic aorta. Lungs: Unremarkable. No consolidation. No masses. Pleural space: Unremarkable. No pneumothorax. No pleural effusion. Heart: Unremarkable. No cardiomegaly. No pericardial effusion. Mediastinum: Esophagus is unremarkable. Lymph nodes: Unremarkable. No enlarged lymph nodes. Bones/joints: Unremarkable. No acute fracture. Soft tissues: Unremarkable. IMPRESSION: No acute findings. PROCEDURE INFORMATION: Exam: CT Angiography Abdomen With Contrast Exam date and time: 02/09/2019 3:50 AM Clinical history: 53 years old, male; Abdominal pain; Generalized; Patient HX: [id number] presents to ED wit h chest pain. Reports pain 10/10, began in abdomen, then moved to chest. Pain began around 5pm last n ight, gotten progressively worse. No HX of similar pain. Hx- 2 heart caths, last one 2 years ago, no stents, diabetes, high cholesterol, hbp with medication, reports he is medication compliant but BP no rmally runs high TECHNIQUE: Imaging protocol: Computed tomographic angiography images of the abdomen with intravenous contrast ma terial. 3D rendering: MIP reconstructed images were created and reviewed. COMPARISON: No relevant prior studies available. FINDINGS: VASCULATURE: Aorta: Atherosclerotic aorta. No aneurysm or acute aortic syndrome. Celiac trunk and mesenteric arteries: No occlusion or significant stenosis. Renal arteries: No occlusion or significant stenosis. ABDOMEN: Liver: Hepatic steatosis. Gallbladder and bile ducts: Normal. No calcified stones. No ductal dilation. Pancreas: Normal. No ductal dilation. Spleen: Normal. No splenomegaly. Adrenals: Normal. No mass. Kidneys and ureters: Right renal cyst. Stomach and bowel: Unremarkable. No obstruction. No mucosal thickening. Intraperitoneal space: Unremarkable. No free air. No significant fluid collection. Bones/joints: Unremarkable. No acute fracture. No dislocation. Soft tissues: Small umbilical hernia containing fat only. Lymph nodes: Unremarkable. No enlarged lymph nodes. IMPRESSION: No acute findings. Thank you for allowing us to participate in the care of your patient. Dictated and Authenticated by: Get Pierre MD 02/09/2019 4:49 AM Central Time ([place] & [place]) FINAL REPORT CT ANGIOGRAM OF THE THORACIC AORTA CT ANGIOGRAM OF THE ABDOMINAL AORTA: HISTORY: Chest pain. Evaluate for dissection. COMPARISON: 03/02/2018, 07/26/2016. TECHNIQUE: CT angiogram of the thoracic and abdominal aorta are performed in the axial plane. Three-dimensional reformatted images are submitted for interpretation. FINDINGS: CHEST CT: No acute abnormality in the mediastinum. Heart size is within normal limits. Trachea and central bronchi are patent. No suspicious masses or nodules. Fatty infiltration of the liver. Stable nodule associated with the lateral limb of the left adrenal gland. Symmetric enhancement of the kidneys. No obstructive uropathy. Stable hypodensity emanating from the right renal cortex with attenuation coefficient of 21 Hounsfield units. The right renal cy st and the left adrenal nodule are incompletely evaluated. Dedicated abdomen MRI is recommended. Stable enlarged periportal lymph node. The thoracic and abdominal aorta have a normal caliber. No periaortic fat stranding. The origin of the celiac artery , superior mesenteric artery, bilateral renal arteries, inferior mesenteric artery, and the aortic bifurcation are unremarkable. The origin of the great vessels of the neck is unremar kable. IMPRESSION: 1. This report is in agreement with the preliminary report by [facility]. No evidence of aneurysm or disse ction with regards to the aorta. No acute abnormality in the chest or abdomen. 2. Indeterminate nodule in the left adrenal gland, unchanged from the previous examination. The nod ule measures 0.8 cm. 3. Right renal cyst, possibly complex. 4. Consider further evaluation with an abdominal MRI. CODE T POS: [facility]
[2019-02-09] MEDS ORDERED: Aspirin 325 mg Enteric Coated Tablet PO SCH (09:00)
[2019-02-09] MEDS ORDERED: Metoprolol Tartrate 25 MG TAB PO SCH (09:00)
--- NOTE | 2019-02-09 09:39 | RAD ---
CHEST 1 VIEW: HISTORY: Chest pain. COMPARISON: 08/24/2018. FINDINGS: Normal cardiac silhouette. Calcified AP window lymph nodes are noted. Lungs and pleural spaces are clear. No pneumothorax. IMPRESSION: No acute cardiopulmonary process. POS: [facility]
[2019-02-09] MEDS ORDERED: PROVENTIL INHALER 6.7 G (200 INHALATIONS) INH PRN (11:32)
[2019-02-09] MEDS ORDERED: predniSONE 5 MG TAB PO SCH ×2 (12:00→17:00)
--- NOTE | 2019-02-09 12:06 | CON ---
DATE OF CONSULTATION: 02/09/2019 REASON FOR CONSULTATION: Chest pain. HISTORY OF PRESENT ILLNESS: Mr. Liu is a very pleasant 53-year-old white gentleman, who is very well known to myself, who comes to the hospital for chest pain. He had several admissions for chest pain back in 2014 with normal stress testing, so we eventually did a heart catheterization and he had only mild coronary artery disease. He did not have any 80% blockages. He only had mild coronary artery disease. The worst lesion was about 40%. He has been battling chest pain since then. He had an admission about a year ago in October for chest pain. He had a stress test, which was normal. Discharged home. This time around, he comes in with chest pain in the epigastric area. His blood pressure was 230/130, so they gave him some sublingual nitroglycerin in the ER. His blood pressure came down to 160/105. He was admitted for rule out. Troponins have been negative x3 and Cardiology is being consulted. On my evaluation, Mr. Liu is chest pain-free. PAST MEDICAL HISTORY: 1. Hypertension. 2. Type 2 diabetes. 3. COPD. 4. TIA. 5. Gout. 6. Mild coronary artery disease. No history of heart attacks. PAST SURGICAL HISTORY: Heart catheterization with only mild coronary artery disease. SOCIAL HISTORY: Former smoker. No alcohol or drugs. FAMILY HISTORY: Noncontributory. ALLERGIES: NO KNOWN DRUG ALLERGIES. OUTPATIENT MEDICATIONS: 1. Prednisone 5 mg b.i.d. 2. Metformin 500 mg b.i.d. 3. Triamterene/hydrochlorothiazide 37.5/25 a day. 4. Pravastatin 20 mg q.h.s. 5. Lisinopril 20 mg a day. 6. Coreg 6.25 b.i.d. 7. Aspirin 325 a day. 8. Amlodipine 10 mg a day. 9. Albuterol 2 puffs inhalation q.6 hours. REVIEW OF SYSTEMS: A 12-point review of systems was done and was all negative unless stated in the history of present illness. PHYSICAL EXAMINATION: VITAL SIGNS: Temperature 98.1, pulse 99, respiratory rate 18, saturations 94% on room air, and blood pressure 172/90. GENERAL: Awake, alert, oriented x3, in no distress. HEENT: Normocephalic, atraumatic. NECK: Supple. LUNGS: Clear. CARDIOVASCULAR: S1 and S2. No S3 or S4. No murmurs. ABDOMEN: Soft. Positive bowel sounds. EXTREMITIES: No edema. SKIN: Warm and dry. LABORATORY DATA: Laboratory work was reviewed. CBC, coags, chemistries were reviewed. Troponin is negative x3. Glucose was 260. BNP was 21. EKG was reviewed. ASSESSMENT: 1. Hypertensive emergency. 2. Chest pain, likely secondary to hypertension. 3. Mild coronary artery disease. 4. Noncompliance. PLAN: 1. We will restart his home medications for blood pressure control. 2. We will plan on up titrating some of his medications. He is on 5 blood pressure medications including 2 diuretics. We will check for renal artery stenosis. 3. Echocardiogram to be done. Thank you for letting us participate in the care of your patient. We will follow. Job ID: [id number]
--- NOTE | 2019-02-09 16:05 | ULT ---
RENAL DOPPLER: HISTORY: Renal artery stenosis. COMPARISON: None. CORRELATION: Dissection protocol 02/09/2019. TECHNIQUE: Estrada scale, color flow, Doppler imaging, and spectral waveform analysis is performed of the kidneys. FINDINGS: RIGHT KIDNEY: Limited evaluation of the cortex. There does appear to be mild lobulation. Anechoic focus in the up per cortex and extends into the upper pole pelvis measures 2.5 x 2.4 x 3.1 cm and may represent a cys t. No hydronephrosis. The right kidney measures 6.3 x 7.0 x 14.5 cm. The left kidney has a limited evaluation of the cortex. No hydronephrosis. The left kidney measures 6.9 x 7.0 x 13.8 cm. Unremarkable urinary bladder. RENAL DOPPLER: Right renal artery 77.5 cm/s. Left renal artery 169.8 cm/s. Aorta 116.2 cm/s. Right renal artery to aorta ratio 0.67. Left renal artery to aorta ratio 1.46. Right arcuate artery resistive index 0.66. Left arcuate artery resistive index 0.64. IMPRESSION: Slight asymmetric increased velocity of the left renal artery with respect to the contralateral side. However, comparison made with a CT angiogram performed earlier today does not demonstrate any signi ficant atherosclerotic disease in either renal artery ostia. Variation appears to be due to technica l reasons rather than due to true narrowing. POS: OFF
--- NOTE | 2019-02-09 16:07 | PDOC.HOSPP ---
- Subjective Encounter Date: 02/09/19 Encounter Time: 10:45 Subjective: has nonspecific retrosternal pain, no radiation gen abd burning sensation no nausea, is npo at bedside - Objective Vital Signs & Weight: Vital Signs (12 hours) Temp Pulse Resp BP BP Pulse Ox 02/09/19 11:06 98.0 F 98 18 167/97 H 97 02/09/19 08:00 97 02/09/19 07:06 98.1 F 99 18 172/90 H 94 L 02/09/19 06:46 98 F 88 19 176/97 H 94 L Weight Weight 299 lb 8 oz Result Diagrams: 02/09/19 03:37 02/09/19 03:37 Additional Labs: Accuchecks 02/09/19 09:08 POC Glucose 260 H Hospitalist ROS - Medication Medications: Active Medications Generic Name Dose Route Start Last Admin Trade Name Freq PRN Reason Stop Dose Admin Aspirin 325 mg 02/09/19 09:00 02/09/19 10:00 Ecotrin PO 325 mg DAILY PANDA Administration Insulin Human Lispro 0 units 02/09/19 05:12 02/09/19 10:00 Humalog SC 4 unit .MILD SLIDING SCALE PRN Administration Mild Correctional Scale - Exam General Appearance: NAD Eye: PERRL, anicteric sclera ENT: no oropharyngeal lesions, moist mucosa Neck: supple, no JVD Heart: RRR, no murmur Respiratory: no wheezes, no rales Gastrointestinal: soft, non-distended, normal bowel sounds, no guarding, no rigidity Neurological: cranial nerve grossly intact, no focal deficits Hosp A/P (1) Chest pain Code(s): R07.9 - CHEST PAIN, UNSPECIFIED Status: Chronic Qualifiers: Chest pain type: unspecified Qualified Code(s): R07.9 - Chest pain, unspecified (2) Sleep apnea, unspecified Code(s): G47.30 - SLEEP APNEA, UNSPECIFIED Status: Suspected (3) DM type 2 (diabetes mellitus, type 2) Status: Chronic Qualifiers: Diabetes mellitus jail insulin use: without long term care phlebotomist use (4) Dyslipidemia Code(s): E78.5 - HYPERLIPIDEMIA, UNSPECIFIED Status: Chronic (5) Essential hypertension Code(s): I10 - ESSENTIAL (PRIMARY) HYPERTENSION Status: Chronic (6) Morbid obesity Code(s): E66.01 - MORBID (SEVERE) OBESITY DUE TO EXCESS CALORIES Status: Chronic - Plan had prior cath in 01/11 showed mild 30% lesions, no flow limiting disease stress test 10/2017 was -ve await usg abd and renal results echo shows good EF has underlying sleep apnea and needs outpt sleep study referall via pcp hemostable dc plan once all imaging results are back and cardio is ok
[2019-02-09] MEDS ORDERED: Carvedilol 3.125 MG TAB PO SCH (21:00)
[2019-02-09] MEDS ORDERED: Atorvastatin Calcium 10 MG TAB PO SCH (21:00)
[2019-02-10 03:58] VITALS: BP 147/76; TEMP 99.2
[2019-02-10] MEDS ORDERED: Triamterene/Hydrochlorothiazide 37.5 mg/25 mg Tablet PO SCH (09:00)
[2019-02-10] MEDS ORDERED: Amlodipine 10 MG TAB PO SCH (09:00)
[2019-02-10] MEDS ORDERED: Aspirin 325 mg Enteric Coated Tablet PO SCH (09:00)
[2019-02-10] MEDS ORDERED: Lisinopril 20 MG TAB PO SCH (09:00)
--- NOTE | 2019-02-10 14:20 | DIS ---
DATE OF ADMISSION: 02/09/2019 DATE OF DISCHARGE: 02/09/2019 DISCHARGE DISPOSITION: Home. PRIMARY DISCHARGE DIAGNOSIS: Chest pain, which is noncardiac. SECONDARY DISCHARGE DIAGNOSES: Sleep apnea, suspected diabetes mellitus type 2, dyslipidemia, hypertension, morbid obesity. PROCEDURES DONE DURING HOSPITALIZATION: Has had prior cardiac catheterization in December of 2014, showed no flow-limiting disease. Stress test in October 2017, was negative. Echo done this admission showed EF of 60% to 65%. Renal ultrasound showed slight asymmetric increased velocity of the left renal artery with respect to the contralateral side; however, comparison made with a CT angiogram performed earlier today does not demonstrate any significant atherosclerotic disease in either renal artery ostia. CT dissection protocol showed no acute findings. There was no aneurysm or dissection seen. No acute abnormality in the chest or abdomen. Hemoglobin and hematocrit 16 and 45, platelet count 170, MCV 90. Troponin x3 negative. BNP 21. BUN 14 and creatinine 0.9. LFTs were within normal limits. Albumin 4.3. DISCHARGE MEDICATIONS: 1. Aspirin 325 mg p.o. daily. 2. Coreg 6.25 mg p.o. twice daily. 3. Lisinopril 20 mg p.o. daily. 4. Norvasc 10 mg p.o. daily. 5. Pravastatin 20 mg p.o. at bedtime. 6. Metformin 500 mg p.o. twice daily. 7. Triamterene with hydrochlorothiazide 37.5/25 mg p.o. daily. 8. Albuterol inhaler q.6 hourly p.r.n. ALLERGIES: NO KNOWN DRUG ALLERGIES. DISCHARGE PLAN: The patient to follow up with primary care physician at [facility] in 1 week, Dr. Saenz in 3 to 4 weeks. BRIEF COURSE DURING HOSPITALIZATION: The patient initially came to ER with complaints of chest pain. Also, his blood pressures were elevated on arrival measuring 230/130, likely had hypertensive emergency leading to chest pain. He has had prior cardiac catheterization done which showed no flow-limiting disease in the past. Mr. Liu has had 3 sets of troponin done which are negative. Echo showed normal ejection fraction. The CT dissection protocol and renal artery ultrasound both did not reveal any findings of renal artery stenosis. He has remained hemodynamically stable. Likely, the patient is noncompliant. He was placed on his home medications with resolution of his hypertensive emergency. He is chest pain free and ambulating. The patient's BMI is 45. He was counseled with regard to medication compliance and dietary compliance. Please note, I have seen and examined the patient on the day of discharge. He is cleared for discharge by Dr. Saenz. Job ID: [id number] MTDD
[2019-02-12] MEDS ORDERED: predniSONE 5 MG TAB PO SCH (08:00)
== END 2019-02-09 20:10 | disposition home or self-care (01) ==
LOC: ERS 03:26 → 2NO 05:00
PROVIDERS: ADMIT Internal Medicine; ATTEND Internal Medicine
DX: R07.9 Chest pain, unspecified (principal); I16.0 Hypertensive urgency; I10 Essential (primary) hypertension; E11.9 Type 2 diabetes mellitus without complications; I25.10 Atherosclerotic heart disease of native coronary artery without angina pectoris; E78.5 Hyperlipidemia, unspecified; G47.30 Sleep apnea, unspecified; E66.01 Morbid (severe) obesity due to excess calories; I25.2 Old myocardial infarction; J44.9 Chronic obstructive pulmonary disease, unspecified; Z68.42 Body mass index [BMI] 45.0-49.9, adult; Z87.891 Personal history of nicotine dependence; Z79.84 Long term (current) use of oral hypoglycemic drugs; Z79.899 Other long term (current) drug therapy; Z86.73 Personal history of transient ischemic attack (TIA), and cerebral infarction without residual deficits
CPT/HCPCS: 36415; 36416; 71045; 71275; 72191; 74175; 76700; 76770; 80053; 83880; 84484; 85025; 93306; 94760; 96374; 96375; G0378; J2270; J2405; J7512

== ENCOUNTER 2019-04-07 02:11 | Observation (INO) | payer SELFPAY ==
[2019-04-07 02:50] LABS: #Basophils 0.1 thou/uL (0.0-0.2); #Eosinphils 0.3 thou/uL (0.0-0.7); #Monocytes 0.6 thou/uL (0.11-0.59); #Neutrophils 4.1 thou/uL (1.40-6.50); %Basophils 0.9 % (0.0-1.0); %Eosinophils 4.6 % (0.0-10.0); %Monocytes 8.7 % (0.0-10.0); %Neutrophils 57.8 % (42.0-75.0); Hemoglobin 15.8 g/dL (14.0-18.0); Mean Corpuscular HGB CONC 34.2 g/dL (32.0-36.0); Mean Corpuscular Hemoglobin 31.5 pg (27.0-31.0); Mean Corpuscular Volume 92.1 fL (78.0-98.0); Mean Platelet Volume 8.5 fL (7.4-10.4); Platelet Count 169 thou/uL (130-400); RBC Distribution Width 12.1 % (11.5-14.5); Red Blood Cell (RBC) Count 5.02 mill/uL (4.70-6.10)
[2019-04-07 02:58] LABS: INR-International Normal Ratio 0.9; Prothrombin Time 12.2 SEC (12.0-14.7)
[2019-04-07 03:10] LABS: ALT (SGPT) 28 U/L (8-55); AST (SGOT) 22 U/L (5-34); Albumin 4.1 g/dL (3.5-5.0); Alkaline Phosphatase 108 U/L (40-110); Anion Gap 12 mmol/L (10-20); BUN (Urea Nitrogen) 13 mg/dL (8.4-25.7); Bilirubin, Total 0.5 mg/dL (0.2-1.2); Calc. Creatinine Clearance 0 mL/min (70-130); Calcium 9.2 mg/dL (7.8-10.44); Carbon Dioxide 24 mmol/L (22-29); Chloride 103 mmol/L (98-107); Estimated GFR-MDRD 64; Globulin 3.2 g/dL (2.4-3.5); Glucose 387 mg/dL (70-105); Potassium 4.1 mmol/L (3.5-5.1); Protein, Total 7.3 g/dL (6.0-8.3); Sodium 135 mmol/L (136-145)
[2019-04-07] MEDS ORDERED: Nitroglycerin 2% Ointment 1 INCH/1 GM Packet ONE (03:17)
--- NOTE | 2019-04-07 03:40 | CT ---
CT of the cervical spine without contrast: 04/07/2019 COMPARISON: None HISTORY: Left-sided headache, neck pain TECHNIQUE: Axial CT imaging at 2.5 mm intervals through the cervical spine without contrast. Coronal and sagittal reformatted imaging obtained. FINDINGS: Moderate degenerative change noted at the atlantoaxial interspace. The craniocervical junct ion and the cervicothoracic junction are intact. The C1 ring is intact. Evaluation for central canal and/or neural foraminal stenosis is limited on ro utine CT. C2-3: No osseous cause of significant central canal or neural foraminal stenosis. Mild right-sided ne ural foraminal stenosis. C3-4: Mild posterior osteophyte formation with probable mild central canal stenosis. No osseous cause of significant neural foraminal stenosis. C4-5: Mild right neural foraminal stenosis on the basis of facet hypertrophy. No osseous cause of sig nificant central canal or left neural foraminal stenosis. C5-6: There is disc space narrowing with posterior osteophyte formation as well as anterior osteophyt e. Bilateral facet and uncovertebral osteophyte formation. Moderate bilateral neural foraminal stenosis suspected, left greater than right. Mild/moderate central canal stenosis. C6-7: Facet and uncovertebral osteophyte formation causes moderate/severe bilateral neural foraminal stenosis, left greater than right. Disc osteophyte complex present with moderate central canal stenosis. C7-T1: No osseous cause of significant central canal or neural foraminal stenosis. Imaged lung apices appear unremarkable. No displaced fracture or evidence of dislocation. IMPRESSION: Prominent degenerative change. No acute osseous abnormality.
--- NOTE | 2019-04-07 03:42 | CT ---
Head CT without contrast 04/07/2019: COMPARISON: 08/07/2017 HISTORY: Fall, left-sided headache with pain TECHNIQUE: Axial CT imaging at 5 mm intervals from vertex through skull base without contrast FINDINGS: The imaged paranasal sinuses/mastoid air cells appear grossly unremarkable. No displaced ca lvarial fracture. No intracranial hemorrhage, midline shift, mass effect, or ventricular enlargement. IMPRESSION: No acute findings.
[2019-04-07] MEDS ORDERED: Hydrocodone-Acetamin 15 ML UDCUP ONE (04:19)
[2019-04-07] MEDS ORDERED: HYDROcodone/Acetaminophen 5/325 mg Tablet ONE (04:32)
[2019-04-07] MEDS ORDERED: Ondansetron ODT 4 MG TAB SL PRN (05:54)
[2019-04-07] MEDS ORDERED: Ondansetron PF 4 MG/2 ML Vial IVP PRN (05:54)
[2019-04-07] MEDS ORDERED: HYDROcodone/Acetaminophen 5/325 mg Tablet PO PRN ×2 (05:54)
[2019-04-07 06:40] VITALS: BMI 44.4
--- NOTE | 2019-04-07 08:50 | RAD ---
PORTABLE CHEST ONE VIEW: 04/07/2019 2:24 a.m. HISTORY: Nosebleed. Cough. COMPARISON: 02/09/2019 FINDINGS: The heart size is normal. There is evidence of old granulomatous disease. The lungs are expanded with out lobar consolidation, pneumothoraces, gunjan pulmonary edema or pleural effusions. IMPRESSION: No acute process. POS: [facility]
[2019-04-07] MEDS ORDERED: FLU VACC QS2019-20(6MOS UP)/PF 60 MCG/0.5 ML SYRINGE IM ONE (09:00)
[2019-04-07] MEDS ORDERED: Lidocaine 1% (PF) 30 ML VIAL ONE (09:45)
[2019-04-07] MEDS ORDERED: Dextrose 50% Abboject 50 ML SYRINGE SLOW IVP PRN (10:10)
[2019-04-07] MEDS ORDERED: Dextrose 5% in Water 1,000 ML IV PRN (10:10)
[2019-04-07] MEDS ORDERED: HumaLOG 300 UNITS/3 ML VIAL SC PRN (10:10)
[2019-04-07 10:29] LABS: Hemoglobin A1c 11.3 % (4.0-6.0)
[2019-04-07] MEDS ORDERED: predniSONE 20 MG TAB PO SCH (10:30)
[2019-04-07] MEDS ORDERED: Amoxicillin/Potassium Clav 875 MG TAB PO SCH ×2 (10:30→21:00)
[2019-04-07] MEDS ORDERED: Lidocaine 1% w/Epinephrine 1:100K 20 ML VIAL FS PRN (10:31)
[2019-04-07 10:41] LABS: CRP (Inflammatory) 0.58 mg/dL (= or < 0.5)
--- NOTE | 2019-04-07 11:35 | ULT ---
EXAM: US Abdomen Limited CLINICAL HISTORY: Cirrhosis. Evaluate for ascites.. COMPARISON: None. FINDINGS: Limited evaluation of all 4 quadrants of the abdomen does not demonstrate any significant free fluid in the abdomen. IMPRESSION: No sonographic evidence of ascites.
[2019-04-07 12:04] VITALS: BP 145/80; TEMP 98.3
[2019-04-07] MEDS ORDERED: Simvastatin 5 MG TAB PO SCH (21:00)
[2019-04-07] MEDS ORDERED: Carvedilol 6.25 MG TAB PO SCH (21:00)
--- NOTE | 2019-04-07 22:53 | CON ---
DATE OF CONSULTATION: CHIEF COMPLAINT/REASON FOR CONSULTATION: Left auricular hematoma and left auricular trauma. HISTORY OF PRESENT ILLNESS: A 53-year-old gentleman presenting with chronic cough and recent syncope. The patient was lying in bed and got up and fell and encountered trauma to the left ear, which resulted in significant swelling. Imaging was done. CT head without trauma evident to the brain, but showing a left-sided auricular hematoma, and ENT was consulted for surgical management. PAST MEDICAL HISTORY: History of TIA, COPD, sleep apnea, hypertension, diabetes, obesity, tobacco use and chronic cough as well as hypertension. PAST SURGICAL HISTORY: No head, neck surgical operations. FAMILY HISTORY: Noncontributory. SOCIAL HISTORY: Noncontributory. REVIEW OF SYSTEMS: NEUROLOGIC: Negative. RESPIRATORY: Significant coughing and shortness of breath with coughing fits. GASTROINTESTINAL: Negative. HEMATOLOGIC/IMMUNOLOGIC: Negative. ENT: See HPI. CARDIOVASCULAR: Negative. NEUROLOGIC: Negative. PHYSICAL EXAMINATION: GENERAL: Alert and oriented, responding appropriately, complaining of left ear pain and coughing. HEAD AND FACE: Left ear ecchymosis, erythema, and significant swelling. Otherwise, no evidence of trauma. No frontal sinus or maxillary sinus tenderness. No bony step-offs and no clear fractures or lacerations of the head and neck. NOSE: Normal. No trauma. Septum intact. No septal hematoma. EARS: Right pinna is normal and EAC is normal with ear canal clear. Left ear is edematous with a large fluctuant hematoma roughly 4.5 cm with significant swelling and ecchymosis as well as erythema. Left EAC is clear with no bleeding. No significant laceration. ORAL CAVITY: Oropharynx, lips, teeth, tongue are normal. No significant edema or erythema. No swelling. No signs of infection. Floor of mouth is soft. Tongue is mobile. NECK: Trachea is midline. Thyroid without lesions or masses. No cervical lymphadenopathy. Trachea is midline. Good cervical mobility. NEUROLOGIC: Cranial nerves are grossly intact 2 through 12. Mood and affect are normal. PROCEDURE NOTE: Incision and drainage of left auricular hematoma and wound exploration. The patient's ear was cleared with alcohol swabs and 1% lidocaine with 1:100,000 epinephrine was injected on the ear hematoma superficial skin, roughly 5 mL in total. Anesthesia was achieved. An 18-gauge needle was used to localize the hematoma and drained around 10 mL of blood. A small incision with 11 blade scalpel was made to open about 1 to 1.5 cm incision. The ear was probed and then several large blood clots were expressed from the incision. After the skin was found to be resting on the cartilage, there was no significant loss of cartilage. The wound cavity was explored to make sure that there was no residual hematoma or blood clot. Next, a Xeroform gauze was rolled and cut in half, and then 4-0 Prolene was used to suture the Xeroform gauze to apply pressure to the anterior skin, mucoperichondrial flap onto the cartilage and suture on the posterior aspect of the ear. Next, the area was washed and cleared of all blood. There was no significant bleeding. The patient tolerated the procedure well. ASSESSMENT AND PLAN: A 53-year-old gentleman presenting with significant past medical history as well as chronic coughing and recent syncope resulting in left auricular trauma and left auricular hematoma. Given significant fluctuance and elevation of the anterior mucoperichondrial flap and risk of blood supply to the cartilage, recommendation which was completed is an incision and drainage and evacuation of hematoma and a bolster suture dressing placed to rule out hearing and to prevent recurrence and re-accumulation of hematoma. Given patient's significant trauma and hematoma in the location of decreased blood supply, I recommend skin and soft tissue antibiotics, which is Augmentin already prescribed to the patient for 7 days and follow up as an outpatient in clinic for removal of suture and bolster dressing. Job ID: [id number]
[2019-04-08] MEDS ORDERED: predniSONE 20 MG TAB PO SCH (08:00)
[2019-04-08] MEDS ORDERED: Fluticasone Propionate Nasal Spray 16 gm Bottle NASAL SCH (09:00)
[2019-04-08] MEDS ORDERED: Lisinopril 20 MG TAB PO SCH (09:00)
[2019-04-08] MEDS ORDERED: NPH, Human Insulin Isophane 300 UNIT/3 ML VIAL SC SCH (09:00)
[2019-04-08] MEDS ORDERED: Amlodipine 10 MG TAB PO SCH (09:00)
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
== END 2019-04-07 16:08 | disposition home or self-care (01) ==
LOC: ERS 02:11 → ERHOLD 04:52 → 2SW 06:02
PROVIDERS: ADMIT Internal Medicine; ATTEND Internal Medicine
PROC: 09910ZZ Drainage of Left External Ear, Open Approach (ICD-10-PCS; principal; 2019-04-07)
DX: S00.432A Contusion of left ear, initial encounter (principal); J44.9 Chronic obstructive pulmonary disease, unspecified; I10 Essential (primary) hypertension; E11.9 Type 2 diabetes mellitus without complications; E66.9 Obesity, unspecified; R55 Syncope and collapse; R05 Cough; Z86.73 Personal history of transient ischemic attack (TIA), and cerebral infarction without residual deficits; Z79.899 Other long term (current) drug therapy; Z68.44 Body mass index [BMI] 60.0-69.9, adult; Z87.891 Personal history of nicotine dependence; Z79.84 Long term (current) use of oral hypoglycemic drugs; W19.XXXA Unspecified fall, initial encounter
CPT/HCPCS: 36415; 36416; 70450; 71045; 72125; 76705; 80053; 83036; 83690; 84484; 85025; 85610; 85652; 86140; 93005; G0378; J2001; J7512

== ENCOUNTER 2020-06-23 19:27 | Inpatient (IN) | payer SELFPAY ==
[~2020-06-23 19:27] MED LIST changes: -ISOVUE-370 76%-LOCM 1 ML ONE; +Iopamidol-370 76% 500 ML 1 ML ONE
[2020-06-23] MEDS ORDERED: Fentanyl 100 MCG/2 ML VIAL ONE (20:06)
[2020-06-23 20:14] LABS: #Eosinphils 0.3 thou/uL (0.0-0.7); #Lymphocytes 2.2 thou/uL (1.20-3.40); #Monocytes 0.9 thou/uL (0.11-0.59); #Neutrophils 4.3 thou/uL (1.40-6.50); %Basophils 0.6 % (0.0-1.0); %Eosinophils 3.3 % (0.0-10.0); %Lymphocytes 28.4 % (21.0-51.0); %Monocytes 11.4 % (0.0-10.0); %Neutrophils 56.3 % (42.0-75.0); Hemoglobin 15.1 g/dL (14.0-18.0); Mean Corpuscular HGB CONC 34.3 g/dL (32.0-36.0); Mean Corpuscular Hemoglobin 31.5 pg (27.0-31.0); Mean Platelet Volume 8.6 fL (7.4-10.4); Platelet Count 190 thou/uL (130-400); RBC Distribution Width 11.8 % (11.5-14.5); Red Blood Cell (RBC) Count 4.78 mill/uL (4.70-6.10); White Blood Cell (WBC) Count 7.6 thou/uL (4.8-10.8)
[2020-06-23 20:35] LABS: ALT (SGPT) 21 U/L (8-55); AST (SGOT) 18 U/L (5-34); Alkaline Phosphatase 87 U/L (40-110); Anion Gap 16 mmol/L (10-20); BUN (Urea Nitrogen) 11 mg/dL (8.4-25.7); Bilirubin, Total 0.4 mg/dL (0.2-1.2); Calc. Creatinine Clearance 0 mL/min (70-130); Calcium 9.1 mg/dL (7.8-10.44); Carbon Dioxide 23 mmol/L (22-29); Chloride 101 mmol/L (98-107); Globulin 3.3 g/dL (2.4-3.5); Glucose 342 mg/dL (70-105); Lipase 57 U/L (8-78); Potassium 3.8 mmol/L (3.5-5.1); Protein, Total 7.3 g/dL (6.0-8.3); Sodium 136 mmol/L (136-145)
[2020-06-23] MEDS ORDERED: cefTRIAXone\\ROCEPHIN 1 GM VIAL ONE ×2 (21:54→23:42)
[2020-06-23] MEDS ORDERED: Azithromycin 500 MG VIAL ONE (23:42)
[2020-06-23] MEDS ORDERED: Aspirin Chewable 81 MG TAB ONE (23:42)
[2020-06-24 01:09] LABS: Troponin I 0.016 ng/mL (< 0.028)
[2020-06-24] MEDS ORDERED: Dextrose 50% Abboject 50 ML SYRINGE SLOW IVP PRN (02:00)
[2020-06-24] MEDS ORDERED: Dextrose 5% in Water 1,000 ML IV PRN (02:00)
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
[2020-06-24] MEDS: Lactated Ringer's 1,000 ML IV SCH ×2 (03:25→17:32)
[2020-06-24] MEDS: Morphine 4 MG/ML VIAL SLOW IVP PRN ×2 (03:25→09:33)
[2020-06-24 04:12] LABS: Bacteria/HPF None Seen HPF (None Seen); Bilirubin Negative (Negative); Blood, Urine Negative (Negative); Clarity Clear (Clear); Glucose, Urine (Dipstick) Greater than 1000 mg/dL (Negative); Ketone, Urine 20 mg/dL (Negative); Leukocyte Negative Leu/uL (Negative); Nitrite Negative (Negative); Protein, Urine (Dipstick) 30 mg/dL (Neg-Trace); Squamous Epithelial 0-3 HPF (0-3); Urobilinogen Normal mg/dL (Less than 2); WBC/HPF None Seen HPF (0-3); pH, Urine 5.5 (5.0-9.0)
[2020-06-24 04:16] LABS: Specific Gravity, Urine Greater than 1.060 (1.002-1.036)
[2020-06-24 04:19] LABS: Urine Culture Reflex No No
[2020-06-24 04:21] LABS: #Eosinphils 0.3 thou/uL (0.0-0.7); #Lymphocytes 2.4 thou/uL (1.20-3.40); #Monocytes 0.8 thou/uL (0.11-0.59); %Basophils 0.5 % (0.0-1.0); %Eosinophils 4.9 % (0.0-10.0); %Lymphocytes 36.5 % (21.0-51.0); %Monocytes 12.6 % (0.0-10.0); %Neutrophils 45.5 % (42.0-75.0); Hemoglobin 14.1 g/dL (14.0-18.0); Mean Corpuscular HGB CONC 35.3 g/dL (32.0-36.0); Mean Corpuscular Hemoglobin 33.4 pg (27.0-31.0); Mean Corpuscular Volume 94.5 fL (78.0-98.0); Mean Platelet Volume 8.5 fL (7.4-10.4); Platelet Count 156 thou/uL (130-400); Red Blood Cell (RBC) Count 4.23 mill/uL (4.70-6.10); White Blood Cell (WBC) Count 6.7 thou/uL (4.8-10.8)
[2020-06-24 04:23] VITALS: BMI 43.2
[2020-06-24 04:35] LABS: Lactic Acid 1.5 mmol/L (0.5-2.2)
[2020-06-24 04:40] LABS: ALT (SGPT) 19 U/L (8-55); AST (SGOT) 16 U/L (5-34); Albumin 3.6 g/dL (3.5-5.0); Alkaline Phosphatase 75 U/L (40-110); Anion Gap 11 mmol/L (10-20); BUN (Urea Nitrogen) 11 mg/dL (8.4-25.7); Bilirubin, Total 0.4 mg/dL (0.2-1.2); Calc. Creatinine Clearance 185 mL/min (70-130); Calcium 8.3 mg/dL (7.8-10.44); Carbon Dioxide 26 mmol/L (22-29); Chloride 103 mmol/L (98-107); Glucose 278 mg/dL (70-105); Lipase 38 U/L (8-78); Magnesium 1.8 mg/dL (1.6-2.6); Potassium 3.3 mmol/L (3.5-5.1); Protein, Total 6.6 g/dL (6.0-8.3); Sodium 137 mmol/L (136-145)
[2020-06-24 04:44] LABS: Troponin I 0.018 ng/mL (< 0.028)
[2020-06-24] MEDS ORDERED: Promethazine HCl 12.5 MG in Sodium Chloride 0.9% 50 ML IVPB PRN (05:47)
[2020-06-24] MEDS ORDERED: hydrALAZINE 20 MG/ML VIAL SLOW IVP PRN (05:47)
[2020-06-24] MEDS ORDERED: cloNIDine 0.1 MG TAB PO PRN (05:47)
[2020-06-24] MEDS ORDERED: Guaifenesin DM 100-10/5 ML UDCUP PO PRN (05:47)
[2020-06-24] MEDS ORDERED: Ondansetron PF 4 MG/2 ML Vial IVP PRN (05:47)
[2020-06-24] MEDS ORDERED: Electrolyte Replacement Protocol 1 EACH FS PRN (06:00)
[2020-06-24] MEDS ORDERED: Magnesium 2 GM/50 ML 2 GM in Premix Bag 1 BAG IVPB SCH (06:30)
[2020-06-24] MEDS ORDERED: Potassium Chloride 20 MEQ TAB PO SCH ×2 (06:45→09:00)
[2020-06-24] MEDS ORDERED: Potassium Chloride 40 MEQ in Premix Bag 1 BAG IVPB SCH (06:45)
[2020-06-24] MEDS: HumaLOG 300 UNITS/3 ML VIAL SC PRN ×4 (06:48→22:13)
[2020-06-24] MEDS ORDERED: Potassium Chloride 40 MEQ in Sodium Chloride 0.9% 250 ML 250 ML IV SCH (07:00)
[2020-06-24 08:54] LABS: SARS-CoV-2 PCR by NAA Not Detected (NotDetected)
--- NOTE | 2020-06-24 14:11 | PDOC.HOSPP ---
- Subjective Encounter Date: 06/24/20 Encounter Time: 09:30 - Objective Vital Signs & Weight: Vital Signs (12 hours) Temp Pulse Resp BP Pulse Ox 06/24/20 12:00 98.2 F 69 21 H 137/78 98 06/24/20 08:36 98.1 F 69 18 163/90 H 94 L 06/24/20 02:15 98.0 F 63 18 177/91 H 99 Weight Weight 284 lb I&O: 06/23/20 06/24/20 06/25/20 06:59 06:59 06:59 Intake Total 246 Output Total 275 Balance -29 Result Diagrams: 06/24/20 04:04 06/24/20 04:05 Additional Labs: Accuchecks 06/24/20 06/24/20 10:46 06:04 POC Glucose 242 H 252 H Hospitalist ROS - Medication Medications: Active Medications Generic Name Dose Route Start Last Admin Trade Name Freq PRN Reason Stop Dose Admin Insulin Human Lispro 0 units 06/24/20 02:00 06/24/20 12:12 Humalog 300 Units/3 Ml Vial SC 3 unit .MILD SLIDING SCALE PRN Administration Mild Correctional Scale Pantoprazole Sodium 40 mg 06/24/20 09:00 06/24/20 09:33 Pantoprazole 40 Mg Tab PO 40 mg DAILY PANDA Administration Hospitalist Exam Vitals: Vital Signs (12 hours) Temp Pulse Resp BP Pulse Ox 06/24/20 12:00 98.2 F 69 21 H 137/78 98 06/24/20 08:36 98.1 F 69 18 163/90 H 94 L 06/24/20 02:15 98.0 F 63 18 177/91 H 99 Weight Weight 284 lb Hosp A/P - Plan LUQ abdominal pain Code(s): R10.12 - LEFT UPPER QUADRANT PAIN Status: Acute Assessment and Plan: Sudden onset LUQ pain radiating up towards his lower chest/epigastric region and wrapping around left side towards back. Labs unremarkable. CTA CAP without any changes to explain persistent tenderness. Given radiating pain to chest he was treated with Aspirin 324 mg, had an EKG and troponins done which were negative x 2. Patient with urinary symptoms. No leukocytosis and remains afebrile. LFT unremarkable lipase insignificant level Renal US --1 small cyst recommended follow-up in 12 months Tramadol PRN for pain Repeat lactic acid Given IV antibiotics, consider possibility of SBP given alcoholic liver cirrhosis (2) Cirrhosis, alcoholic Code(s): K70.30 - ALCOHOLIC CIRRHOSIS OF LIVER WITHOUT ASCITES Status: Chronic History of splenectomy -He has not seen any GI in the past -No previous ascites related issues -given the vague presentation of left abdominal discomfort and negative imaging studies and lab results, will also request GI input. (3) COPD (chronic obstructive pulmonary disease) Status: Chronic Assessment and Plan: Continuous O2 sat monitoring On O2 at home Duo nebs prn (4) DM type 2 (diabetes mellitus, type 2) Status: Chronic Assessment and Plan: Monitor glucose Accucheks ACHS ISS initiated (5) Essential hypertension Monitor BP resume home meds as appropriate once verified (6) History of DC (myocardial infarction) Code(s): I25.2 - OLD MYOCARDIAL INFARCTION Status: Chronic (7) Morbid obesity Code(s): E66.01 - MORBID (SEVERE) OBESITY DUE TO EXCESS CALORIES Status: Chronic Plan: GI Prophylaxis with Famotidine DVT Prophylaxis with mechanical SCDs
[2020-06-24] MEDS: Morphine 2 MG/ML VIAL SLOW IVP PRN ×2 (15:01→20:31)
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
[2020-06-24] MEDS: Labetalol HCl 100 MG/20 ML VIAL SLOW IVP PRN (22:16)
[2020-06-25] MEDS: HYDROcodone/Acetaminophen 5/325 mg Tablet PO PRN ×3 (01:34→21:00)
[2020-06-25] MEDS: Morphine 2 MG/ML VIAL SLOW IVP PRN ×4 (04:47→23:06)
[2020-06-25] MEDS: HumaLOG 300 UNITS/3 ML VIAL SC PRN ×3 (06:09→16:31)
[2020-06-25 06:44] LABS: #Eosinphils 0.3 thou/uL (0.0-0.7); #Lymphocytes 2.3 thou/uL (1.20-3.40); #Monocytes 0.7 thou/uL (0.11-0.59); #Neutrophils 3.1 thou/uL (1.40-6.50); %Basophils 0.2 % (0.0-1.0); %Eosinophils 4.3 % (0.0-10.0); %Lymphocytes 36.3 % (21.0-51.0); %Monocytes 10.3 % (0.0-10.0); %Neutrophils 48.9 % (42.0-75.0); Hemoglobin 13.7 g/dL (14.0-18.0); Mean Corpuscular HGB CONC 33.9 g/dL (32.0-36.0); Mean Corpuscular Hemoglobin 31.6 pg (27.0-31.0); Mean Corpuscular Volume 93.2 fL (78.0-98.0); Mean Platelet Volume 8.4 fL (7.4-10.4); Platelet Count 168 thou/uL (130-400); RBC Distribution Width 11.7 % (11.5-14.5); Red Blood Cell (RBC) Count 4.34 mill/uL (4.70-6.10); White Blood Cell (WBC) Count 6.3 thou/uL (4.8-10.8)
[2020-06-25 07:06] LABS: ALT (SGPT) 31 U/L (8-55); AST (SGOT) 28 U/L (5-34); Albumin 3.6 g/dL (3.5-5.0); Alkaline Phosphatase 72 U/L (40-110); Anion Gap 11 mmol/L (10-20); BUN (Urea Nitrogen) 10 mg/dL (8.4-25.7); Bilirubin, Direct 0.2 mg/dL (0.1-0.3); Bilirubin, Total 0.4 mg/dL (0.2-1.2); Calc. Creatinine Clearance 188 mL/min (70-130); Calcium 8.3 mg/dL (7.8-10.44); Carbon Dioxide 28 mmol/L (22-29); Chloride 102 mmol/L (98-107); Glucose 275 mg/dL (70-105); Magnesium 1.8 mg/dL (1.6-2.6); Potassium 4.1 mmol/L (3.5-5.1); Protein, Total 6.6 g/dL (6.0-8.3); Sodium 137 mmol/L (136-145)
[2020-06-25] MEDS ORDERED: Magnesium 2 GM/50 ML 2 GM in Premix Bag 1 BAG IVPB SCH (08:15)
[2020-06-25] MEDS: Labetalol HCl 100 MG/20 ML VIAL SLOW IVP PRN ×2 (09:17→16:31)
[2020-06-25] MEDS: Acetaminophen 325 MG TAB PO PRN ×2 (11:41→20:59)
--- NOTE | 2020-06-25 12:07 | PRG ---
DATE OF SERVICE: 06/25/2020 SUBJECTIVE: Mr. Liu has stable pain in the left upper quadrant, which is unchanged. Still primarily with cough or movement of his torso. OBJECTIVE: VITAL SIGNS: Temperature 98.3, pulse 62, blood pressure 162/97 to 181/104. LUNGS: Clear to auscultation bilaterally. HEART: Regular rate and rhythm without murmur. ABDOMEN: Soft, pyrotechnics press tender in the left upper abdomen without guarding. Bowel sounds are present. EXTREMITIES: No lower extremity edema. LABORATORY DATA: White blood cell count is 6.3, hemoglobin 13.7, platelets 168. Creatinine 0.81. LFTs are normal. IMPRESSION: 1. Left upper quadrant pain is most consistent with musculoskeletal origin. This is not affected by bowel movements or eating. He is tolerating his diet well. No constipation or diarrhea. 2. COPD, on 4 L nasal cannula home oxygen. RECOMMENDATIONS: 1. Tylenol or NSAIDs as needed for the pain. 2. If NSAIDs are used, I would also recommend treating with proton pump inhibitor. 3. Follow up in the office with Dr. Barney in 2 to 4 weeks to assess how his pain is progressing. Routine colon cancer screening can be considered as well. I will sign off for now. Please call if GI can be of assistance. I anticipate discharge home today. Job ID: [id number]
[2020-06-25] MEDS ORDERED: Benzonatate 100 MG CAP PO PRN (18:02)
[2020-06-25] MEDS ORDERED: Albuterol Sulfate 2.5 mg/3 ml Neb NEB PRN (18:13)
--- NOTE | 2020-06-25 18:14 | PDOC.BPN ---
- Brief Progress Note [id number] progress
--- NOTE | 2020-06-25 18:43 | PRG ---
DATE OF SERVICE: 06/25/2020 SUBJECTIVE: The patient is still feeling lower chest discomfort, dizziness, headache, and abdominal pain especially when he eats. He was seen by GI and Surgery, appreciate their input. Blood pressure is elevated today as high as 181/104, also his blood glucose is elevated at 333. The patient was started on sliding scale with insulin coverage. Also, we will go ahead and restart his blood pressure medications. OBJECTIVE: GENERAL: Awake, in moderate distress. VITAL SIGNS: Blood pressure was as high as 181/104, latest 174/93; pulse is 58; respiratory rate is 16; and oxygen saturation is 97% on nasal cannula. HEAD AND NECK: Normocephalic. Neck is supple. CHEST: Fair bilateral air entry. Lower chest tenderness. ABDOMEN: Soft. Mild epigastric tenderness. NEUROLOGIC: Awake, alert, and oriented. PSYCH: Normal mood. EXTREMITIES: No clubbing, no cyanosis. LABORATORY DATA: Reviewed. BUN is 10, creatinine 0.8. Troponin was not done, especially with his epigastric pain, I will go ahead and get serial troponins to rule out acute coronary syndrome in the setting of elevated blood pressure in the patient with risk factors. ASSESSMENT: 1. Hypertensive urgency, we will restart the patient's home medications. 2. Diabetes mellitus, hyperglycemia. 3. Abdominal pain, possibly gastritis. Appreciate GI input. 4. Chronic respiratory failure, on home oxygen. 5. Sleep apnea. 6. Morbid obesity. PLAN: 1. We will restart blood pressure medications. 2. Continue sliding scale with insulin coverage. 3. Reassess the patient in a.m. If blood pressure improve and blood sugar is better controlled, home in a.m. Job ID: [id number]
[2020-06-25] MEDS: Carvedilol 6.25 MG TAB PO SCH (20:58)
[2020-06-25] MEDS: Simvastatin 10 MG TAB PO SCH (20:58)
[2020-06-25] MEDS: HumuLIN 70/30 (300 UNITS/3 ML VIAL) SC SCH (21:22)
[2020-06-26 06:42] LABS: #Basophils 0.1 thou/uL (0.0-0.2); #Eosinphils 0.3 thou/uL (0.0-0.7); #Lymphocytes 2.1 thou/uL (1.20-3.40); #Monocytes 0.6 thou/uL (0.11-0.59); #Neutrophils 2.7 thou/uL (1.40-6.50); %Basophils 1.1 % (0.0-1.0); %Eosinophils 5.8 % (0.0-10.0); %Lymphocytes 36.3 % (21.0-51.0); %Monocytes 10.2 % (0.0-10.0); %Neutrophils 46.6 % (42.0-75.0); Hemoglobin 13.7 g/dL (14.0-18.0); Mean Corpuscular HGB CONC 34.3 g/dL (32.0-36.0); Mean Corpuscular Hemoglobin 31.9 pg (27.0-31.0); Mean Corpuscular Volume 93.2 fL (78.0-98.0); Mean Platelet Volume 8.6 fL (7.4-10.4); Platelet Count 156 thou/uL (130-400); RBC Distribution Width 11.9 % (11.5-14.5); Red Blood Cell (RBC) Count 4.29 mill/uL (4.70-6.10); White Blood Cell (WBC) Count 5.8 thou/uL (4.8-10.8)
[2020-06-26] MEDS: Morphine 2 MG/ML VIAL SLOW IVP PRN ×3 (06:50→17:50)
[2020-06-26] MEDS: HumaLOG 300 UNITS/3 ML VIAL SC PRN ×4 (06:50→20:53)
[2020-06-26 07:03] LABS: Anion Gap 12 mmol/L (10-20); BUN (Urea Nitrogen) 10 mg/dL (8.4-25.7); Calc. Creatinine Clearance 200 mL/min (70-130); Calcium 8.2 mg/dL (7.8-10.44); Carbon Dioxide 27 mmol/L (22-29); Chloride 102 mmol/L (98-107); Glucose 271 mg/dL (70-105); Magnesium 1.9 mg/dL (1.6-2.6); Potassium 3.9 mmol/L (3.5-5.1); Sodium 137 mmol/L (136-145)
[2020-06-26] MEDS ORDERED: Magnesium 2 GM/50 ML 2 GM in Premix Bag 1 BAG IVPB SCH (07:45)
[2020-06-26] MEDS: HYDROcodone/Acetaminophen 5/325 mg Tablet PO PRN ×3 (08:00→20:26)
[2020-06-26] MEDS: Acetaminophen 325 MG TAB PO PRN (08:01)
[2020-06-26] MEDS: Amlodipine 10 MG TAB PO SCH (08:02)
[2020-06-26] MEDS: HumuLIN 70/30 (300 UNITS/3 ML VIAL) SC SCH ×2 (08:03→20:53)
[2020-06-26] MEDS: Lisinopril 20 MG TAB PO SCH (08:03)
[2020-06-26] MEDS: Carvedilol 6.25 MG TAB PO SCH ×2 (08:03→20:27)
[2020-06-26] MEDS: Fluticasone Propionate Nasal Spray 16 gm Bottle NASAL SCH (08:04)
--- NOTE | 2020-06-26 15:52 | PDOC.BPN ---
- Brief Progress Note [id number]
--- NOTE | 2020-06-26 17:16 | PRG ---
DATE OF SERVICE: 06/26/2020 CURRENT MEDICATIONS: The patient is on 1. Zofran p.r.n. 2. Tylenol p.r.n. 3. Lisinopril 20 mg daily. 4. Tessalon p.r.n. 5. Robitussin DM. 6. DuoNeb p.r.n. 7. Carvedilol 6.25 mg p.o. twice a day. 8. Labetalol p.r.n. 9. Clonidine p.r.n. 10. Flonase nasal spray. 11. Amlodipine 10 mg p.o. daily. 12. Hydralazine p.r.n. 13. Simvastatin. 14. [place] p.r.n. 15. Morphine p.r.n. SUBJECTIVE: The patient is still complaining of abdominal pain. He says that the pain is worse when he eats, but he has apparently been tolerating a diet. States that initially when he swallows, the pain is so bad, and then after that the pain subsides, but overall, his pain is not well controlled. He has been on [place] and morphine and also his blood pressure has been elevated. The latest blood pressure is 190/95. PHYSICAL EXAMINATION: GENERAL: The patient is in moderate distress. VITAL SIGNS: Blood pressure 190/95, pulse is 62, respiratory rate is 20, oxygen saturation is 97% on 3 L/minute nasal cannula. HEENT: Normocephalic, atraumatic. NECK: Supple. No JVD. CHEST: Fair bilateral air entry. HEART: S1 and S2. Regular. ABDOMEN: Soft with epigastric tenderness. Bowel sounds present. NEUROLOGIC: Awake, alert. No focal deficits. PSYCH: Unable to assess. EXTREMITIES: No clubbing or cyanosis. LABORATORY DATA: WBC 5.8, hemoglobin 13.7, and platelets 156. Sodium 137, potassium 3.9, BUN is 10, creatinine 0.76, glucose 271. ASSESSMENT AND PLAN: 1. Acute abdominal pain. Still etiology is not clear. The patient was seen by GI and Surgery, which they do not think is an acute abdominal pathology, CT of the abdomen did not show any acute intraabdominal pathology and it did show a complex kidney cyst, which has been stable. Also a fatty liver. 2. Accelerated hypertension, blood pressure is still not well controlled. Probably, it could be secondary to the pain aggravating it. 3. Chronic respiratory failure, on home oxygen. 4. Lung opacities/infiltrates, need to be followed by repeat CT in a month or two, COVID-19 test negative. 5. Sleep apnea, BiPAP therapy at night. 6. Morbid obesity. 7. Diabetes mellitus and hyperglycemia. PLAN: 1. We will continue to monitor the patient today, hopefully try to wean him off pain medications, so he will be able to be discharged tomorrow, the patient was seen by GI and Surgery during hospital stay. No intervention from their part. He will just need to follow in the GI clinic as an outpatient. 2. Continue close monitoring of blood pressure and continue current blood pressure medications. Hopefully, once the pain is better controlled, his blood pressure will improve. 3. Possible discharge in a.m. if the patient's condition improved and able to be weaned off pain medications. Job ID: [id number]
[2020-06-26] MEDS: Simvastatin 10 MG TAB PO SCH (20:27)
[2020-06-27] MEDS: Morphine 2 MG/ML VIAL SLOW IVP PRN (04:28)
[2020-06-27] MEDS: HumaLOG 300 UNITS/3 ML VIAL SC PRN ×2 (05:53→11:44)
[2020-06-27 06:08] LABS: #Eosinphils 0.4 thou/uL (0.0-0.7); #Lymphocytes 2.3 thou/uL (1.20-3.40); #Monocytes 0.7 thou/uL (0.11-0.59); %Basophils 0.6 % (0.0-1.0); %Eosinophils 5.3 % (0.0-10.0); %Lymphocytes 31.4 % (21.0-51.0); %Monocytes 8.9 % (0.0-10.0); %Neutrophils 53.8 % (42.0-75.0); Hemoglobin 13.8 g/dL (14.0-18.0); Mean Corpuscular HGB CONC 34.8 g/dL (32.0-36.0); Mean Corpuscular Hemoglobin 32.8 pg (27.0-31.0); Mean Corpuscular Volume 94.2 fL (78.0-98.0); Platelet Count 152 thou/uL (130-400); RBC Distribution Width 11.7 % (11.5-14.5); Red Blood Cell (RBC) Count 4.22 mill/uL (4.70-6.10); White Blood Cell (WBC) Count 7.4 thou/uL (4.8-10.8)
[2020-06-27 06:22] LABS: Anion Gap 13 mmol/L (10-20); BUN (Urea Nitrogen) 13 mg/dL (8.4-25.7); Calc. Creatinine Clearance 181 mL/min (70-130); Calcium 8.3 mg/dL (7.8-10.44); Carbon Dioxide 26 mmol/L (22-29); Chloride 102 mmol/L (98-107); Glucose 307 mg/dL (70-105); Magnesium 1.8 mg/dL (1.6-2.6); Potassium 4.1 mmol/L (3.5-5.1); Sodium 137 mmol/L (136-145)
[2020-06-27] MEDS ORDERED: Magnesium 2 GM/50 ML 2 GM in Premix Bag 1 BAG IVPB SCH (06:45)
[2020-06-27] MEDS: Carvedilol 6.25 MG TAB PO SCH (09:03)
[2020-06-27] MEDS: Lisinopril 20 MG TAB PO SCH (09:03)
[2020-06-27] MEDS: Amlodipine 10 MG TAB PO SCH (09:04)
[2020-06-27] MEDS: HumuLIN 70/30 (300 UNITS/3 ML VIAL) SC SCH (09:05)
[2020-06-27] MEDS: Fluticasone Propionate Nasal Spray 16 gm Bottle NASAL SCH (09:06)
--- NOTE | 2020-06-27 11:09 | PDOC.HOSPP ---
- Subjective Encounter Date: 06/27/20 Encounter Time: 10:00 Subjective: Patient reports continued left upper quadrant and left flank pain, very sensitive even to light touch of the area but with no rash. Seems to be worse after he eats due to some pressure or swelling in the area. Also worse with standing up or moving or twisting. He has been eating well without nausea or vomiting. His home medication list mentioned Protonix twice a day however patient and his spouse denied that he ever had Protonix at home. - Objective Vital Signs & Weight: Vital Signs (12 hours) Temp Pulse Resp BP Pulse Ox 06/27/20 08:20 98.1 F 64 14 143/80 H 98 06/27/20 04:21 97.8 F 62 16 151/88 H 98 Weight Weight 284 lb I&O: 06/26/20 06/27/20 06/28/20 06:59 06:59 06:59 Intake Total 1680 1260 360 Balance 1680 1260 360 Result Diagrams: 06/27/20 05:28 06/27/20 05:28 Additional Labs: Accuchecks 06/27/20 06/26/20 06/26/20 05:49 20:51 16:05 POC Glucose 271 H 298 H 281 H 06/26/20 06/25/20 11:20 20:14 POC Glucose 286 H 356 H Hospitalist ROS - Review of Systems Constitutional: denies: fever, chills Respiratory: denies: cough, shortness of breath Cardiovascular: denies: chest pain, palpitations Gastrointestinal: reports: abdominal pain (See subjective). denies: nausea, vomiting, diarrhea, constipation - Medication Medications: Active Medications Generic Name Dose Route Start Last Admin Trade Name Freq PRN Reason Stop Dose Admin Acetaminophen 650 mg 06/24/20 05:47 06/26/20 08:01 Acetaminophen 325 Mg Tab PO 650 mg Q4H PRN Administration Headache/Fever/Mild Pain (1-3) Hydrocodone Bitart/Acetaminophen 1 tab 06/24/20 05:47 06/26/20 20:26 Hydrocodone/Acetaminophen 5/325 Mg Tablet PO 1 tab Q4H PRN Administration Moderate Pain (4-6) Amlodipine Besylate 10 mg 06/26/20 09:00 06/27/20 09:04 Amlodipine 10 Mg Tab PO 10 mg DAILY PANDA Administration Carvedilol 6.25 mg 06/25/20 21:00 06/27/20 09:03 Carvedilol 6.25 Mg Tab PO 6.25 mg BID PANDA Administration Fluticasone Propionate 0 gm 06/26/20 09:00 06/27/20 09:06 Fluticasone Propionate Nasal [place] 16 Gm Bottle NASAL 1 spr DAILY PANDA Administration Insulin Human Isoph/Insulin Regular 10 units 06/25/20 21:00 06/27/20 09:05 Humulin 70/30 (300 Units/3 Ml Vial) SC 10 unit BID PANDA Administration Insulin Human Lispro 0 units 06/24/20 02:00 06/27/20 05:53 Humalog 300 Units/3 Ml Vial SC 4 unit .MILD SLIDING SCALE PRN Administration Mild Correctional Scale Insulin Human Lispro 0 units 06/24/20 02:00 06/26/20 20:53 Humalog 300 Units/3 Ml Vial SC 3 unit .BEDTIME SLIDING SC PRN Administration Bedtime Correctional Scale Labetalol HCl 20 mg 06/24/20 05:47 06/25/20 16:31 Labetalol Hcl 100 Mg/20 Ml Vial SLOW IVP 20 mg Q4H PRN Administration SBP > 160 use first Lisinopril 20 mg 06/26/20 09:00 06/27/20 09:03 Lisinopril 20 Mg Tab PO 20 mg DAILY PANDA Administration Pantoprazole Sodium 40 mg 06/24/20 09:00 06/27/20 09:04 Pantoprazole 40 Mg Tab PO 40 mg DAILY PANDA Administration Simvastatin 10 mg 06/25/20 21:00 06/26/20 20:27 Simvastatin 10 Mg Tab PO 10 mg HS PANDA Administration Hospitalist Exam Vitals: Vital Signs (12 hours) Temp Pulse Resp BP Pulse Ox 06/27/20 08:20 98.1 F 64 14 143/80 H 98 06/27/20 04:21 97.8 F 62 16 151/88 H 98 Weight Weight 284 lb General Appearance: NAD, awake alert ENT: moist mucosa Heart: RRR, no murmur, no gallops, no rubs Respiratory: CTAB, no wheezes, no rales, no ronchi Gastrointestinal: soft, non-distended, normal bowel sounds Gastrointestinal - other findings: Left upper quadrant and flank hypersensitive to light touch and palpation Extremities: no edema Skin: normal turgor, no lesions, no rashes Psychiatric: normal affect, normal behavior, A&O x 3 Hosp A/P - Plan LUQ abdominal pain Code(s): R10.12 - LEFT UPPER QUADRANT PAIN Status: Acute Assessment and Plan: Sudden onset LUQ pain radiating up towards his lower chest/epigastric region and wrapping around left side towards back. Labs unremarkable. CTA CAP without any changes to explain persistent tenderness. Given radiating pain to chest he was treated with Aspirin 324 mg, had an EKG and troponins done which were negative x 2. Patient without urinary symptoms. No leukocytosis and remains afebrile. Appears to be musculoskeletal. Also consistent with shingles except patient has not had any rash develop in the area. We will discontinue morphine IV and start ibuprofen. We will keep on Protonix when he goes home. Can discharge home today. (2) Fatty liver without definitive diagnosis of cirrhosis Appreciate GI Dr. Rocha assistance. Pain not GI in origin per Dr. Rocha and he has signed off. Dr. Rocha recommends putting on Protonix daily if we need NSAIDs to help control the pain. (3) COPD (chronic obstructive pulmonary disease) Status: Chronic Assessment and Plan: Continuous O2 sat monitoring On O2 at home Duo nebs prn (4) DM type 2 (diabetes mellitus, type 2) Status: Chronic Assessment and Plan: Monitor glucose Accucheks ACHS ISS initiated (5) Essential hypertension Monitor BP resume home meds as appropriate once verified (6) History of [place] (myocardial infarction) Code(s): I25.2 - OLD MYOCARDIAL INFARCTION Status: Chronic (7) Morbid obesity Code(s): E66.01 - MORBID (SEVERE) OBESITY DUE TO EXCESS CALORIES Status: Chronic Plan: GI Prophylaxis with Famotidine DVT Prophylaxis with mechanical SCDs Disposition: Plan to discharge home later today.
[2020-06-27] MEDS: HYDROcodone/Acetaminophen 5/325 mg Tablet PO PRN (11:43)
[2020-06-27] MEDS ORDERED: Ketorolac Tromethamine 30 MG/ML VIAL IVP SCH (12:45)
[2020-06-27 13:33] VITALS: BP 142/82; TEMP 98.3
--- NOTE | 2020-06-27 17:51 | PDOC.DS.DS ---
Provider Date of Admission: 06/24/20 18:06 Date of Discharge: 06/27/20 Admitting Provider: Leon Mendoza MD Consultations: Gastroentrology (Dr. Rocha), General Surgery (Dr. Shirley) Primary Care Physician: Giuliano Tenorio MD Course Hospital Course: This is a 54-year-old male who came in with sudden onset left upper quadrant abdominal pain radiating to left flank while he was laying in bed. He did have some radiation to his chest. Seem to get worse with movement and with very light touch to the area. Patient also with feeling like his abdomen tightens up and when not especially after eating. Patient was evaluated in the emergency room where he had an aortic dissection CT done that was negative except for severe fatty liver disease and a stable renal cyst. He had persistent significant pain in spite of hydrocodone and so had to be given IV morphine regularly. Dr. Shirley with general surgery and Dr. Rocha with GI were both consulted. They both determined that the patient's pain was most likely musculoskeletal and not intra-abdominal. Dr. Rocha did state that patient could have NSAIDs for treatment of this pain but he would need to be on a proton pump inhibitor as well. Patient was transitioned off of the IV morphine to hydrocodone and ibuprofen only. He has been discharged to follow-up with Dr. Rocha's clinic for possible EGD if he has persistent symptoms. Patient is to follow-up with his primary care physician and he is to get seen immediately if he develops a rash as this could be shingles though given that it has been quite a few days without any rash yet this is unlikely. Pertinent Studies: CTA OF THE CHEST, ABDOMEN AND PELVIS UTILIZING AN AORTIC DISSECTION PROTOCOL AND 3-D REFORMATTED IMAGING INDICATION: 54-year-old male with acute abdominal pain COMPARISON: None FINDINGS: Aorta: There are mild vascular calcifications involving the abdominal and thoracic aorta. No hemodynamically significant stenosis, occlusion or aneurysmal formation is demonstrated. Central pulmonary artery: No central pulmonary embolus demonstrated. Additional thorax findings: There are patchy peripheral reticulonodular groundglass airspace opacities within the lower lingula as well as within the left lower lobe.. There are calcified lymph nodes within the mediastinum and left hilar region. No pleural effusion or pneumothorax is evident. Additional abdominal findings: There is severe fatty infiltration of the liver. There is a stable complex cyst involving the right mid kidney measuring 3.5 x 3.7 cm. No free fluid or enlarged lymph nodes are evident. There is a fat-containing umbilical hernia. There is a normal appendix. The small bowel is of normal caliber. Osseous structures: No acute osseous abnormality. IMPRESSION: 1. No appreciable aortic stenosis, occlusion or aneurysmal formation demons trated. 2. Patchy peripheral reticulonodular and ground glass airspace opacities in the lower lingula and posterior medial left lower lobe are nonspecific. Recommend further correlation for any symptoms and signs of bronchiolitis or developing bronchopneumonia. Follow-up CT of the thorax in 6-8 weeks is recommended to document resolution. 3. Stable complex cystic lesion involving the right mid kidney. Follow-up CT the abdomen utilizing renal mass protocol in 6-12 months is recommended to document stability. 4. Fatty liver. Resuscitation Status: 06/24/20 01:35 Resuscitation Status Routine Co-Sign Provider: Resuscitation Status: FULL: Full Resuscitation Lab Results: 06/27/20 05:28 06/27/20 05:28 Abnormal Lab Results - Last 48 hrs 06/26/20 06:05: RBC 4.29 L, Hgb 13.7 L, Hct 39.9 L, MCH 31.9 H, Monocytes % 10.2 H, Basophils % 1.1 H, Monocytes # 0.6 H 06/27/20 05:28: RBC 4.22 L, Hgb 13.8 L, Hct 39.8 L, MCH 32.8 H, Monocytes # 0.7 H Vitals: Vital Signs (12 hours) Temp Pulse Resp BP BP Pulse Ox 06/27/20 12:05 98.3 F 60 14 142/82 H 95 06/27/20 08:20 98.1 F 64 14 143/80 H 98 Weight Weight 284 lb Physical Exam: The patient was seen and examined on the day of discharge. Problem Assessment: (1) LUQ abdominal painlikely musculoskeletal (2) Fatty liver without definitive diagnosis of cirrhosis (3) COPD (chronic obstructive pulmonary disease) (4) DM type 2 (diabetes mellitus, type 2) (5) Essential hypertension (6) History of [place] (myocardial infarction) (7) Morbid obesity Plan of Treatment: Patient to take [place] and ibuprofen as needed for pain. He is to take the Protonix daily while he is on the ibuprofen. Patient is to follow-up in Dr. Rocha's clinic and with his primary surgeon. Time Spent in discharge related activities (mins): 32 Plan Prescriptions: Ibuprofen [Motrin] 600 mg PO Q6H PRN #30 tab PRN Reason: Pain HYDROcodone Bit/APAP 5/325 [[place]] 1 tab PO Q4H PRN #20 tab PRN Reason: Moderate Pain (4-6) Pantoprazole [Protonix] 40 mg PO DAILY #30 tab Home Medications: Medication Instructions Recorded Confirmed Type Amlodipine [Norvasc] 10 mg PO DAILY #90 tab 10/27/17 06/24/20 Rx Carvedilol [Coreg] 6.25 mg PO BID #120 tab 10/27/17 06/24/20 Rx Lisinopril [Zestril] 20 mg PO DAILY #90 tab 10/27/17 06/24/20 Rx Pravastatin Sodium 20 mg PO HS #90 tab 10/27/17 06/24/20 Rx Triamterene/Hydrochlorothiazid 1 cap PO DAILY #90 capsule 10/27/17 06/24/20 Rx [Triamterene-Hctz 37.5-25 mg Cp] Albuterol Sulfate [Proventil Hfa] 2 puff INH Q6H PRN #1 inh 03/02/18 06/24/20 Rx Benzonatate [Tessalon] 100 mg PO TID PRN #30 cap 04/07/19 06/24/20 Rx Insulin NPH Hum/Reg Insulin HM 10 unit SC BID #1 vial 04/07/19 06/24/20 Rx [Novolin 70/30] Syringe-Needle,Insulin,0.5 ml 1 each ASDIR #60 syringe 04/07/19 06/24/20 Rx [Insulin 0.5 ml Syringe] Fluticasone Propionate [Flonase 1 puff NASAL DAILY 06/24/20 06/24/20 History Nasal [place]] metFORMIN [Glucophage] 500 mg PO DAILY 06/24/20 06/24/20 History HYDROcodone Bit/APAP 5/325 [[place]] 1 tab PO Q4H PRN #20 tab 06/27/20 Rx Ibuprofen [Motrin] 600 mg PO Q6H PRN #30 tab 06/27/20 Rx Pantoprazole [Protonix] 40 mg PO DAILY #30 tab 06/27/20 Rx Allergies: No Known Drug Allergies Allergy (Verified 04/07/19 06:12) Activity:: Activity as Tolerated Nourishment:: Heart Healthy Diet, Low Sodium Diet Therapies:: Not Applicable Equipment/Supplies:: Oxygen (Continue home oxygen) IV Therapy:: Not Applicable Referrals: Jhon Rocha MD [Active] - (Follow-up in 1 to 2 weeks) Giuliano Tenorio MD [Primary Care Provider] - 7 Days Disposition: HOME Quality CORE MEASURES:: N/A
[2020-06-27] MEDS ORDERED: Ibuprofen 600 MG TAB PO PRN (18:00)
--- NOTE | 2020-06-28 09:30 | CT ---
CTA OF THE CHEST, ABDOMEN AND PELVIS UTILIZING AN AORTIC DISSECTION PROTOCOL AND 3-D REFORMATTED IMAG ING INDICATION: 54-year-old male with acute abdominal pain COMPARISON: None FINDINGS: Aorta: There are mild vascular calcifications involving the abdominal and thoracic aorta. No hemodyna mically significant stenosis, occlusion or aneurysmal formation is demonstrated. Central pulmonary artery: No central pulmonary embolus demonstrated. Additional thorax findings: There are patchy peripheral reticulonodular groundglass airspace opacitie s within the lower lingula as well as within the left lower lobe.. There are calcified lymph nodes within the mediastinum and left hilar region. No pleural effusion or pneumothorax is evident. Additional abdominal findings: There is severe fatty infiltration of the liver. There is a stable com plex cyst involving the right mid kidney measuring 3.5 x 3.7 cm. No free fluid or enlarged lymph nodes are evident. There is a fat-containing umbilical hernia. There is a normal appendix. The small bowel is of normal caliber. Osseous structures: No acute osseous abnormality. IMPRESSION: 1. No appreciable aortic stenosis, occlusion or aneurysmal formation demonstrated. 2. Patchy peripheral reticulonodular and ground glass airspace opacities in the lower lingula and pos terior medial left lower lobe are nonspecific. Recommend further correlation for any symptoms and signs of bronchiolitis or developing bronchopneumonia. Follow-up CT of the thorax in 6-8 weeks is rec ommended to document resolution. 3. Stable complex cystic lesion involving the right mid kidney. Follow-up CT the abdomen utilizing re nal mass protocol in 6-12 months is recommended to document stability. 4. Fatty liver. Transcribed Date/Time: 06/28/2020 9:30 AM
== END 2020-06-27 13:30 | disposition home or self-care (01) | DRG 392 ==
LOC: ERS 19:27 → 3SE 06-24 00:33 → OBSVTOIN 06-24 18:06
PROVIDERS: ADMIT Internal Medicine; ATTEND Emergency Medicine
DX: R10.12 Left upper quadrant pain (principal); Z68.41 Body mass index [BMI] 40.0-44.9, adult; J96.10 Chronic respiratory failure, unspecified whether with hypoxia or hypercapnia; G43.909 Migraine, unspecified, not intractable, without status migrainosus; J44.9 Chronic obstructive pulmonary disease, unspecified; E78.5 Hyperlipidemia, unspecified; E78.00 Pure hypercholesterolemia, unspecified; M10.9 Gout, unspecified; F41.9 Anxiety disorder, unspecified; K70.30 Alcoholic cirrhosis of liver without ascites; E66.01 Morbid (severe) obesity due to excess calories; F32.9 Major depressive disorder, single episode, unspecified; I25.10 Atherosclerotic heart disease of native coronary artery without angina pectoris; K76.0 Fatty (change of) liver, not elsewhere classified; I16.0 Hypertensive urgency; E11.65 Type 2 diabetes mellitus with hyperglycemia; G47.30 Sleep apnea, unspecified; I10 Essential (primary) hypertension; I25.2 Old myocardial infarction; Z85.118 Personal history of other malignant neoplasm of bronchus and lung; Z86.73 Personal history of transient ischemic attack (TIA), and cerebral infarction without residual deficits; Z79.899 Other long term (current) drug therapy; Z79.51 Long term (current) use of inhaled steroids; Z79.4 Long term (current) use of insulin; Z99.81 Dependence on supplemental oxygen; Z98.61 Coronary angioplasty status; Z98.890 Other specified postprocedural states; Z20.822 Contact with and (suspected) exposure to COVID-19
CPT/HCPCS: 36415; 36416; 71275; 72193; 74174; 80048; 80053; 80076; 81001; 83605; 83690; 83735; 84484; 85025; 87635; 90471; 90732; 93005; 96365; 96367; 96375; 96376; G0009; G0378; J0456; J0696; J1815; J1885; J2270; J3010; J3475; J7050; Q9967; U0003; U0005

== ENCOUNTER 2020-10-22 01:02 | Emergency (ER) | payer SELFPAY ==
[2020-10-22 01:53] LABS: #Basophils 0.1 thou/uL (0.0-0.2); #Eosinphils 0.3 thou/uL (0.0-0.7); #Monocytes 0.6 thou/uL (0.11-0.59); %Basophils 0.8 % (0.0-1.0); %Eosinophils 3.2 % (0.0-10.0); %Lymphocytes 37.6 % (21.0-51.0); %Monocytes 7.5 % (0.0-10.0); Hemoglobin 15.5 g/dL (14.0-18.0); Mean Corpuscular HGB CONC 35.1 g/dL (32.0-36.0); Mean Corpuscular Hemoglobin 32.2 pg (27.0-31.0); Mean Corpuscular Volume 91.8 fL (78.0-98.0); Mean Platelet Volume 8.8 fL (7.4-10.4); Platelet Count 180 thou/uL (130-400); RBC Distribution Width 11.9 % (11.5-14.5); White Blood Cell (WBC) Count 7.9 thou/uL (4.8-10.8)
[2020-10-22 02:14] LABS: Acetaminophen Less than 6.0 mcg/mL (10.0-30.0); Alcohol 181 mg/dL (Less than 10); CK (CPK) 77 U/L (30-200); Salicylate Less than 8.0 mg/dL (15.0-30.0)
[2020-10-22 02:18] LABS: ALT (SGPT) 23 U/L (8-55); AST (SGOT) 19 U/L (5-34); Alkaline Phosphatase 97 U/L (40-110); Anion Gap 18 mmol/L (10-20); BUN (Urea Nitrogen) 10 mg/dL (8.4-25.7); Bilirubin, Total 0.5 mg/dL (0.2-1.2); Calc. Creatinine Clearance 0 mL/min (70-130); Calcium 8.8 mg/dL (7.8-10.44); Carbon Dioxide 20 mmol/L (22-29); Chloride 99 mmol/L (98-107); Globulin 3.1 g/dL (2.4-3.5); Glucose 457 mg/dL (70-105); Potassium 3.6 mmol/L (3.5-5.1); Protein, Total 7.1 g/dL (6.0-8.3); Sodium 133 mmol/L (136-145)
[2020-10-22 03:24] LABS: Bilirubin Negative (Negative); Blood, Urine Negative (Negative); Clarity Clear (Clear); Glucose, Urine (Dipstick) Greater than 1000 mg/dL (Negative); Ketone, Urine Trace mg/dL (Negative); Leukocyte Negative Leu/uL (Negative); Nitrite Negative (Negative); Protein, Urine (Dipstick) Negative (Neg-Trace); Specific Gravity, Urine 1.022 (1.002-1.036); Urobilinogen Normal mg/dL (Less than 2)
[2020-10-22 03:39] LABS: Amphetamine Not Detected (NotDetected); Barbiturates Screen Not Detected (NotDetected); Benzodiazepine Screen Not Detected (NotDetected); Cocaine Metabolite Screen Not Detected (NotDetected); Medtox Control Line Valid? VALID (VALID); Medtox Reader # READER 1; Methadone Not Detected (NotDetected); Methamphetamine Not Detected (NotDetected); Opiate Screen Not Detected (NotDetected); Oxycodone Screen Not Detected (NotDetected); Phencyclidine (PCP) Not Detected (NotDetected); THC/Cannabinoid Screen Not Detected (NotDetected); Tricyclic Screen Not Detected (NotDetected)
[2020-10-22 05:21] LABS: SARS-CoV-2 NAA Rapid Test Not Detected (NotDetected)
== END 2020-10-22 10:10 | disposition home or self-care (01) ==
LOC: ERS 01:02
DX: F10.129 Alcohol abuse with intoxication, unspecified (principal); Y90.2 Blood alcohol level of 40-59 mg/100 ml; E78.5 Hyperlipidemia, unspecified; E78.00 Pure hypercholesterolemia, unspecified; J44.9 Chronic obstructive pulmonary disease, unspecified; E11.9 Type 2 diabetes mellitus without complications; I10 Essential (primary) hypertension; M10.9 Gout, unspecified; I25.2 Old myocardial infarction; G43.909 Migraine, unspecified, not intractable, without status migrainosus; K74.60 Unspecified cirrhosis of liver; Z20.822 Contact with and (suspected) exposure to COVID-19; Z79.84 Long term (current) use of oral hypoglycemic drugs; Z87.891 Personal history of nicotine dependence; Z86.73 Personal history of transient ischemic attack (TIA), and cerebral infarction without residual deficits; Z85.118 Personal history of other malignant neoplasm of bronchus and lung; Z79.899 Other long term (current) drug therapy
CPT/HCPCS: 36415; 71045; 80053; 80306; 80307; 81003; 82550; 84443; 84484; 85025; 93005; U0002; U0005

== ENCOUNTER 2021-09-07 19:38 | Inpatient (IN) | payer OTHER, SELFPAY ==
[2021-09-07] MEDS ORDERED: methylPREDNISolone Sod Succ/PF 125 MG/2 ML VIAL ONE (19:48)
[2021-09-07] MEDS ORDERED: Ondansetron PF 4 MG/2 ML Vial ONE (19:57)
[2021-09-07] MEDS ORDERED: Morphine 4 MG/ML VIAL ONE (19:57)
[2021-09-07 20:06] LABS: #Basophils 0.1 thou/uL (0.0-0.2); #Eosinphils 0.3 thou/uL (0.0-0.7); #Lymphocytes 2.8 thou/uL (1.20-3.40); #Monocytes 0.7 thou/uL (0.11-0.59); #Neutrophils 5.4 thou/uL (1.40-6.50); %Basophils 0.9 % (0.0-1.0); %Eosinophils 2.9 % (0.0-10.0); %Lymphocytes 30.1 % (21.0-51.0); %Monocytes 7.4 % (0.0-10.0); %Neutrophils 58.6 % (42.0-75.0); Hemoglobin 16.9 g/dL (14.0-18.0); Mean Corpuscular HGB CONC 34.5 g/dL (32.0-36.0); Mean Corpuscular Hemoglobin 32.1 pg (27.0-31.0); Mean Corpuscular Volume 92.9 fL (78.0-98.0); Mean Platelet Volume 8.7 fL (7.4-10.4); Platelet Count 194 thou/uL (130-400); RBC Distribution Width 11.8 % (11.5-14.5); Red Blood Cell (RBC) Count 5.27 mill/uL (4.70-6.10); White Blood Cell (WBC) Count 9.2 thou/uL (4.8-10.8)
[2021-09-07 20:29] LABS: ALT (SGPT) 17 U/L (8-55); AST (SGOT) 18 U/L (5-34); Albumin 4.1 g/dL (3.5-5.0); Alkaline Phosphatase 108 U/L (40-110); Anion Gap 17 mmol/L (10-20); BUN (Urea Nitrogen) 8 mg/dL (8.4-25.7); Bilirubin, Total 0.5 mg/dL (0.2-1.2); Calc. Creatinine Clearance 0 mL/min (70-130); Calcium 9.2 mg/dL (7.8-10.44); Carbon Dioxide 22 mmol/L (22-29); Chloride 99 mmol/L (98-107); Globulin 3.6 g/dL (2.4-3.5); Glucose 387 mg/dL (70-105); Potassium 3.8 mmol/L (3.5-5.1); Protein, Total 7.7 g/dL (6.0-8.3); Sodium 134 mmol/L (136-145)
[2021-09-07] MEDS ORDERED: Ketorolac Tromethamine 30 MG/ML VIAL ONE (21:19)
[2021-09-07 21:42] LABS: Acetaminophen Less than 10.0 mcg/mL (10.0-30.0); Alcohol Less than 10 mg/dL (Less than 10); Salicylate Less than 8.0 mg/dL (15.0-30.0)
[2021-09-07 22:03] LABS: Bilirubin Negative (Negative); Blood, Urine Negative (Negative); Clarity Clear (Clear); Glucose, Urine (Dipstick) Greater than 1000 mg/dL (Negative); Ketone, Urine Negative (Negative); Leukocyte 250 Leu/uL (Negative); Nitrite Negative (Negative); Protein, Urine (Dipstick) 10 mg/dL (Neg-Trace); Specific Gravity, Urine 1.045 (1.002-1.036); Squamous Epithelial 0-3 HPF (0-3); Urobilinogen Normal mg/dL (Less than 2)
[2021-09-07 22:08] LABS: Amphetamine Not Detected (NotDetected); Barbiturates Screen Not Detected (NotDetected); Benzodiazepine Screen Not Detected (NotDetected); Cocaine Metabolite Screen Not Detected (NotDetected); Methadone Not Detected (NotDetected); Methamphetamine Not Detected (NotDetected); Opiate Screen Detected (NotDetected); Oxycodone Screen Not Detected (NotDetected); Phencyclidine (PCP) Not Detected (NotDetected); THC/Cannabinoid Screen Not Detected (NotDetected); Tricyclic Screen Not Detected (NotDetected)
[2021-09-07 22:13] LABS: Bacteria/HPF 1+ HPF (None Seen)
[2021-09-07 22:14] LABS: RBC/HPF 0-3 HPF (0-3)
[2021-09-07 23:21] LABS: Troponin I 0.011 ng/mL (< 0.028)
[2021-09-07] MEDS ORDERED: Acetaminophen 325 MG TAB PO PRN (23:45)
[2021-09-07] MEDS ORDERED: Ondansetron ODT 4 MG TAB SL PRN (23:45)
[2021-09-07] MEDS ORDERED: Ondansetron PF 4 MG/2 ML Vial IVP PRN (23:45)
[2021-09-08 00:09] VITALS: BMI 39.6
[2021-09-08 02:16] LABS: Troponin I Less than 0.010 ng/mL (< 0.028)
[2021-09-08] MEDS ORDERED: Dextrose 50% Abboject 50 ML SYRINGE SLOW IVP PRN (04:54)
[2021-09-08] MEDS ORDERED: HumaLOG 300 UNITS/3 ML VIAL SC PRN (04:54)
[2021-09-08] MEDS ORDERED: Dextrose 5% in Water 1,000 ML IV PRN (04:54)
[2021-09-08 08:24] LABS: Lactic Acid 3.4 mmol/L (0.5-2.2)
[2021-09-08] MEDS: Aspirin Chewable 81 MG TAB PO SCH (08:54)
[2021-09-08] MEDS: cefTRIAXone\\ROCEPHIN 1 GM in Sodium Chloride 0.9% 100 ML IVPB SCH (08:54)
[2021-09-08] MEDS ORDERED: HumuLIN 70/30 (300 UNITS/3 ML VIAL) SC SCH (09:00)
[2021-09-08] MEDS: Sodium Chloride 0.9% 1,000 ML IV SCH ×2 (10:40→16:58)
[2021-09-08] MEDS: Nitroglycerin 0.4 MG TAB (25 Tab Bottle) SL PRN ×2 (14:44→14:49)
[2021-09-08] MEDS ORDERED: traMADol HCl 50 MG TAB PO SCH (15:00)
[2021-09-08] MEDS ORDERED: Insulin Glargine 30 UNITS/0.3 ML VIAL SC SCH ×3 (17:45→21:00)
[2021-09-08] MEDS: HumaLOG 300 UNITS/3 ML VIAL SC PRN ×2 (18:32→21:44)
[2021-09-08] MEDS: Simvastatin 10 MG TAB PO SCH (21:32)
[2021-09-08] MEDS: Carvedilol 6.25 MG TAB PO SCH (21:33)
[2021-09-09] MEDS: Sodium Chloride 0.9% 1,000 ML IV SCH ×2 (00:43→06:40)
[2021-09-09] MEDS ORDERED: Cyclobenzaprine 10 MG TAB PO SCH (02:45)
[2021-09-09] MEDS: HumaLOG 300 UNITS/3 ML VIAL SC PRN ×4 (05:23→20:53)
[2021-09-09] MEDS: Amlodipine 5 MG TAB PO SCH (08:19)
[2021-09-09] MEDS: cefTRIAXone\\ROCEPHIN 1 GM in Sodium Chloride 0.9% 100 ML IVPB SCH (08:19)
[2021-09-09] MEDS: Aspirin Chewable 81 MG TAB PO SCH (08:19)
[2021-09-09] MEDS: Carvedilol 6.25 MG TAB PO SCH ×2 (08:19→20:48)
[2021-09-09] MEDS ORDERED: Insulin Glargine 30 UNITS/0.3 ML VIAL SC SCH (09:00)
[2021-09-09 12:08] LABS: #Basophils 0.1 thou/uL (0.0-0.2); #Eosinphils 0.2 thou/uL (0.0-0.7); #Lymphocytes 2.7 thou/uL (1.20-3.40); #Monocytes 0.6 thou/uL (0.11-0.59); %Basophils 0.6 % (0.0-1.0); %Eosinophils 2.5 % (0.0-10.0); %Lymphocytes 31.3 % (21.0-51.0); %Monocytes 6.7 % (0.0-10.0); %Neutrophils 58.8 % (42.0-75.0); Hemoglobin 14.6 g/dL (14.0-18.0); Mean Corpuscular HGB CONC 33.5 g/dL (32.0-36.0); Mean Corpuscular Hemoglobin 32.1 pg (27.0-31.0); Mean Corpuscular Volume 95.9 fL (78.0-98.0); Platelet Count 158 thou/uL (130-400); RBC Distribution Width 11.9 % (11.5-14.5); Red Blood Cell (RBC) Count 4.54 mill/uL (4.70-6.10); White Blood Cell (WBC) Count 8.5 thou/uL (4.8-10.8)
[2021-09-09 12:44] LABS: Anion Gap 13 mmol/L (10-20); BUN (Urea Nitrogen) 12 mg/dL (8.4-25.7); Calc. Creatinine Clearance 151 mL/min (70-130); Calcium 8.3 mg/dL (7.8-10.44); Carbon Dioxide 23 mmol/L (22-29); Chloride 104 mmol/L (98-107); Glucose 301 mg/dL (70-105); Magnesium 1.7 mg/dL (1.6-2.6); Phosphorus 3.6 mg/dL (2.3-4.7); Potassium 4.1 mmol/L (3.5-5.1); Sodium 136 mmol/L (136-145)
[2021-09-09] MEDS ORDERED: Magnesium 2 GM/50 ML(in water) 2 GM in Premix Bag 1 BAG IVPB SCH (17:00)
[2021-09-09] MEDS: Insulin Glargine 30 UNITS/0.3 ML VIAL SC SCH (20:49)
[2021-09-09] MEDS: Simvastatin 10 MG TAB PO SCH (21:03)
[2021-09-10] MEDS ORDERED: Acetaminophen 325 MG TAB PO PRN (05:45)
[2021-09-10] MEDS ORDERED: hydrALAZINE 20 MG/ML VIAL SLOW IVP PRN ×2 (05:54→09:06)
[2021-09-10] MEDS: HumaLOG 300 UNITS/3 ML VIAL SC PRN ×3 (06:36→20:44)
[2021-09-10] MEDS: Carvedilol 6.25 MG TAB PO SCH ×2 (08:06→20:41)
[2021-09-10] MEDS: cefTRIAXone\\ROCEPHIN 1 GM in Sodium Chloride 0.9% 100 ML IVPB SCH (08:16)
[2021-09-10] MEDS: Aspirin Chewable 81 MG TAB PO SCH (08:17)
[2021-09-10] MEDS: Amlodipine 5 MG TAB PO SCH (08:18)
[2021-09-10] MEDS: Insulin Glargine 30 UNITS/0.3 ML VIAL SC SCH ×2 (08:19→20:42)
[2021-09-10] MEDS ORDERED: Insulin Glargine 30 UNITS/0.3 ML VIAL SC SCH ×2 (09:02→21:00)
[2021-09-10] MEDS ORDERED: Benzonatate 100 MG CAP PO PRN (09:04)
[2021-09-10] MEDS ORDERED: Triamterene/Hydrochlorothiazide 37.5 mg/25 mg Tablet PO SCH (09:15)
[2021-09-10] MEDS ORDERED: Amlodipine 5 MG TAB PO SCH (09:15)
[2021-09-10] MEDS ORDERED: Lisinopril 20 MG TAB PO SCH (09:15)
[2021-09-10] MEDS ORDERED: Regadenoson 0.4 MG/5 ML SYRINGE ONE (09:30)
[2021-09-10] MEDS: traMADol HCl 50 MG TAB PO PRN ×2 (14:27→20:47)
[2021-09-10] MEDS: Furosemide 20 MG/2 ML VIAL SLOW IVP SCH (14:28)
[2021-09-10] MEDS: Simvastatin 10 MG TAB PO SCH (20:42)
[2021-09-11] MEDS: Furosemide 20 MG/2 ML VIAL SLOW IVP SCH (05:01)
[2021-09-11 06:04] LABS: #Basophils 0.1 thou/uL (0.0-0.2); #Eosinphils 0.3 thou/uL (0.0-0.7); #Lymphocytes 2.3 thou/uL (1.20-3.40); #Monocytes 0.7 thou/uL (0.11-0.59); %Basophils 0.8 % (0.0-1.0); %Eosinophils 3.8 % (0.0-10.0); %Lymphocytes 32.1 % (21.0-51.0); %Monocytes 8.9 % (0.0-10.0); %Neutrophils 54.4 % (42.0-75.0); Hemoglobin 16.6 g/dL (14.0-18.0); Mean Corpuscular HGB CONC 34.4 g/dL (32.0-36.0); Mean Corpuscular Volume 96.1 fL (78.0-98.0); Mean Platelet Volume 8.8 fL (7.4-10.4); Platelet Count 156 thou/uL (130-400); RBC Distribution Width 11.8 % (11.5-14.5); Red Blood Cell (RBC) Count 5.01 mill/uL (4.70-6.10); White Blood Cell (WBC) Count 7.3 thou/uL (4.8-10.8)
[2021-09-11 06:21] LABS: Anion Gap 16 mmol/L (10-20); BUN (Urea Nitrogen) 13 mg/dL (8.4-25.7); Calc. Creatinine Clearance 174 mL/min (70-130); Carbon Dioxide 24 mmol/L (22-29); Chloride 100 mmol/L (98-107); Glucose 147 mg/dL (70-105); Magnesium 1.9 mg/dL (1.6-2.6); Phosphorus 4.3 mg/dL (2.3-4.7); Potassium 3.8 mmol/L (3.5-5.1); Sodium 136 mmol/L (136-145)
[2021-09-11] MEDS: Aspirin Chewable 81 MG TAB PO SCH (08:14)
[2021-09-11] MEDS: cefTRIAXone\\ROCEPHIN 1 GM in Sodium Chloride 0.9% 100 ML IVPB SCH (08:15)
[2021-09-11] MEDS: Carvedilol 6.25 MG TAB PO SCH (08:15)
[2021-09-11] MEDS: Insulin Glargine 30 UNITS/0.3 ML VIAL SC SCH (08:16)
[2021-09-11] MEDS ORDERED: Lisinopril 20 MG TAB PO SCH (09:00)
[2021-09-11] MEDS ORDERED: Triamterene/Hydrochlorothiazide 37.5 mg/25 mg Tablet PO SCH (09:00)
[2021-09-11] MEDS ORDERED: Amlodipine 10 MG TAB PO SCH (09:00)
[2021-09-11] MEDS ORDERED: Prevnar 13-Val Conj/PF 0.5 ML SYRINGE IM ONE (09:00)
[2021-09-11 11:58] VITALS: BP 106/65; TEMP 97.8
== END 2021-09-11 12:40 | disposition home or self-care (01) | DRG 872 ==
LOC: ERS 19:38 → 2SW 21:50 → OBSVTOIN 09-08 08:57
PROVIDERS: ADMIT Internal Medicine; ATTEND Internal Medicine
DX: A41.9 Sepsis, unspecified organism (principal); N30.00 Acute cystitis without hematuria; J96.11 Chronic respiratory failure with hypoxia; Z66 Do not resuscitate; Z20.822 Contact with and (suspected) exposure to COVID-19; I10 Essential (primary) hypertension; E78.5 Hyperlipidemia, unspecified; J44.9 Chronic obstructive pulmonary disease, unspecified; N40.0 Benign prostatic hyperplasia without lower urinary tract symptoms; N47.1 Phimosis; I07.1 Rheumatic tricuspid insufficiency; N28.1 Cyst of kidney, acquired; G47.30 Sleep apnea, unspecified; I25.10 Atherosclerotic heart disease of native coronary artery without angina pectoris; F41.9 Anxiety disorder, unspecified; G43.909 Migraine, unspecified, not intractable, without status migrainosus; F32.A Depression, unspecified; K74.60 Unspecified cirrhosis of liver; R33.9 Retention of urine, unspecified; E11.22 Type 2 diabetes mellitus with diabetic chronic kidney disease; M10.9 Gout, unspecified; I16.0 Hypertensive urgency; E78.00 Pure hypercholesterolemia, unspecified; Z99.81 Dependence on supplemental oxygen; Z86.73 Personal history of transient ischemic attack (TIA), and cerebral infarction without residual deficits; Z79.899 Other long term (current) drug therapy; Z79.84 Long term (current) use of oral hypoglycemic drugs; Z79.4 Long term (current) use of insulin; Z79.51 Long term (current) use of inhaled steroids; Z98.890 Other specified postprocedural states; Z87.891 Personal history of nicotine dependence; Z85.118 Personal history of other malignant neoplasm of bronchus and lung; I25.2 Old myocardial infarction
CPT/HCPCS: 36415; 36416; 71045; 76770; 78452; 80048; 80053; 80306; 80307; 81003; 81015; 83605; 83735; 83880; 84100; 84484; 85025; 85379; 87040; 93005; 93010; 93017; 93306; 94640; 94760; 96374; 96375; A9500; G0378; J0360; J0696; J1815; J1885; J1940; J2270; J2405; J2785; J2930; J3475; J3490; J7050; J7620; U0003; U0005

== ENCOUNTER 2022-05-31 14:01 | Inpatient (IN) | payer SELFPAY ==
[2022-05-31 14:45] LABS: #Eosinphils 0.3 thou/uL (0.0-0.7); #Monocytes 0.6 thou/uL (0.11-0.59); #Neutrophils 4.6 thou/uL (1.40-6.50); %Basophils 0.3 % (0.0-1.0); %Lymphocytes 26.5 % (21.0-51.0); %Neutrophils 61.2 % (42.0-75.0); Hemoglobin 15.2 g/dL (14.0-18.0); Mean Corpuscular HGB CONC 34.1 g/dL (32.0-36.0); Mean Corpuscular Hemoglobin 31.5 pg (27.0-31.0); Mean Corpuscular Volume 92.4 fl (78.0-98.0); Mean Platelet Volume 8.8 fL (7.4-10.4); Platelet Count 200 10x3/uL (130-400); RBC Distribution Width 11.8 % (11.5-14.5); Red Blood Cell (RBC) Count 4.81 mill/uL (4.70-6.10); White Blood Cell (WBC) Count 7.5 10x3/uL (4.8-10.8)
[2022-05-31 15:16] LABS: ALT (SGPT) 17 U/L (8-55); AST (SGOT) 17 U/L (5-34); Albumin 3.9 g/dL (3.5-5.0); Alkaline Phosphatase 80 U/L (40-110); Anion Gap 14 mmol/L (10-20); BUN (Urea Nitrogen) 13 mg/dL (8.4-25.7); Bilirubin, Total 0.6 mg/dL (0.2-1.2); CK (CPK) 61 U/L (30-200); Calc. Creatinine Clearance 0 mL/min (70-130); Calcium 8.9 mg/dL (7.8-10.44); Carbon Dioxide 24 mmol/L (22-29); Chloride 103 mmol/L (98-107); Estimated GFR 78; Glucose 375 mg/dL (70-105); Lipase 48 U/L (8-78); Potassium 4.4 mmol/L (3.5-5.1); Protein, Total 6.9 g/dL (6.0-8.3); Sodium 137 mmol/L (136-145)
[2022-05-31] MEDS ORDERED: Iopamidol-370 76% 500 ML 1 ML ONE (15:48)
[2022-05-31] MEDS ORDERED: Morphine 2 MG/ML VIAL ONE (16:13)
[2022-05-31] MEDS ORDERED: Sodium Chloride 0.9% 1,000 ML IV SCH (17:45)
[2022-05-31 17:49] VITALS: BMI 41.4
[2022-05-31] MEDS ORDERED: Benzonatate 100 MG CAP PO PRN (17:51)
[2022-05-31] MEDS ORDERED: hydrALAZINE 25 MG TAB PO PRN (17:51)
[2022-05-31] MEDS ORDERED: Nitroglycerin 0.4 MG TAB (25 Tab Bottle) SL PRN (18:17)
[2022-05-31 18:36] LABS: Troponin I 0.013 ng/mL (< 0.028)
[2022-05-31] MEDS ORDERED: Morphine 2 MG/ML VIAL SLOW IVP PRN (18:38)
[2022-05-31] MEDS ORDERED: Dextrose 50% Abboject 50 ML SYRINGE SLOW IVP PRN (18:41)
[2022-05-31] MEDS ORDERED: Dextrose 5% in Water 1,000 ML IV PRN (18:41)
[2022-05-31] MEDS ORDERED: metFORMIN 500 MG TAB PO SCH (21:00)
[2022-05-31 21:06] LABS: Troponin I 0.013 ng/mL (< 0.028)
[2022-05-31] MEDS: HumaLOG 300 UNITS/3 ML VIAL SC PRN (21:56)
[2022-05-31] MEDS: Carvedilol 3.125 MG TAB PO SCH (21:57)
[2022-05-31] MEDS: Simvastatin 10 MG TAB PO SCH (21:57)
[2022-05-31] MEDS: Lisinopril 20 MG TAB PO SCH (21:57)
[2022-06-01] MEDS: HumaLOG 300 UNITS/3 ML VIAL SC PRN ×3 (05:28→20:02)
[2022-06-01] MEDS ORDERED: Amlodipine 10 MG TAB PO SCH (09:00)
[2022-06-01] MEDS ORDERED: Aspirin 325 mg Enteric Coated Tablet PO SCH (09:00)
[2022-06-01] MEDS: Lisinopril 20 MG TAB PO SCH ×2 (10:39→20:01)
[2022-06-01] MEDS: Triamterene/Hydrochlorothiazide 37.5 mg/25 mg Tablet PO SCH (10:39)
[2022-06-01] MEDS: Carvedilol 3.125 MG TAB PO SCH ×2 (10:40→20:01)
[2022-06-01] MEDS: Fluticasone Propionate Nasal Spray 16 gm Bottle NASAL SCH (10:40)
[2022-06-01] MEDS: Aspirin Chewable 81 MG TAB PO SCH (10:40)
[2022-06-01] MEDS: Simvastatin 10 MG TAB PO SCH (20:01)
[2022-06-01] MEDS: Insulin NPH Human Isophane 100 UNIT/ML (10 ML VIAL) SC SCH (20:02)
[2022-06-01] MEDS ORDERED: Insulin NPH Human Isophane 100 UNIT/ML (10 ML VIAL) SC SCH (21:00)
[2022-06-02] MEDS: HumaLOG 300 UNITS/3 ML VIAL SC PRN ×4 (06:02→20:49)
[2022-06-02] MEDS: Acetaminophen 325 MG TAB PO PRN ×2 (07:42→13:58)
[2022-06-02] MEDS ORDERED: Ketorolac Tromethamine 30 MG/ML VIAL IVP SCH (08:45)
[2022-06-02] MEDS: Aspirin Chewable 81 MG TAB PO SCH (09:29)
[2022-06-02] MEDS: Carvedilol 3.125 MG TAB PO SCH ×2 (09:29→20:48)
[2022-06-02] MEDS: Triamterene/Hydrochlorothiazide 37.5 mg/25 mg Tablet PO SCH (09:29)
[2022-06-02] MEDS: Amlodipine 5 MG TAB PO SCH (09:29)
[2022-06-02] MEDS: Lisinopril 20 MG TAB PO SCH ×2 (09:29→20:48)
[2022-06-02 09:36] LABS: #Eosinphils 0.3 thou/uL (0.0-0.7); #Lymphocytes 2.4 thou/uL (1.20-3.40); #Monocytes 0.7 thou/uL (0.11-0.59); #Neutrophils 4.4 thou/uL (1.40-6.50); %Basophils 0.2 % (0.0-1.0); %Eosinophils 4.2 % (0.0-10.0); %Lymphocytes 30.4 % (21.0-51.0); %Monocytes 8.7 % (0.0-10.0); %Neutrophils 56.6 % (42.0-75.0); Hemoglobin 15.3 g/dL (14.0-18.0); Mean Corpuscular HGB CONC 35.2 g/dL (32.0-36.0); Mean Corpuscular Hemoglobin 32.5 pg (27.0-31.0); Mean Corpuscular Volume 92.2 fl (78.0-98.0); Mean Platelet Volume 9.4 fL (7.4-10.4); Platelet Count 173 10x3/uL (130-400); White Blood Cell (WBC) Count 7.8 10x3/uL (4.8-10.8)
[2022-06-02] MEDS: Fluticasone Propionate Nasal Spray 16 gm Bottle NASAL SCH (09:50)
[2022-06-02] MEDS: Insulin NPH Human Isophane 100 UNIT/ML (10 ML VIAL) SC SCH ×2 (09:53→17:35)
[2022-06-02 09:56] LABS: Anion Gap 14 mmol/L (10-20); BUN (Urea Nitrogen) 10 mg/dL (8.4-25.7); Calc. Creatinine Clearance 183 mL/min (70-130); Calcium 9.2 mg/dL (7.8-10.44); Carbon Dioxide 24 mmol/L (22-29); Chloride 102 mmol/L (98-107); Estimated GFR 104; Glucose 218 mg/dL (70-105); Magnesium 1.8 mg/dL (1.6-2.6); Sodium 136 mmol/L (136-145)
[2022-06-02] MEDS ORDERED: Electrolyte Replacement Protocol 1 EACH FS SCH (10:30)
[2022-06-02] MEDS: Ipratropium/Albuterol 3 ML NEB NEB SCH ×2 (12:09→18:40)
[2022-06-02] MEDS ORDERED: Magnesium 2 GM/50 ML(in water) 2 GM in Premix Bag 1 BAG IVPB SCH (13:00)
[2022-06-02] MEDS ORDERED: Ibuprofen 200 MG TAB PO SCH (17:15)
[2022-06-02] MEDS: Atorvastatin Calcium 40 MG TAB PO SCH (20:48)
[2022-06-03 05:26] LABS: Anion Gap 13 mmol/L (10-20); BUN (Urea Nitrogen) 14 mg/dL (8.4-25.7); Calc. Creatinine Clearance 155 mL/min (70-130); Calcium 8.9 mg/dL (7.8-10.44); Carbon Dioxide 24 mmol/L (22-29); Cardiac Risk 4.7 (Less than 4.5); Chloride 98 mmol/L (98-107); Cholesterol 170 mg/dl (< 200 Desired); Estimated GFR 97; Glucose 340 mg/dL (70-105); HDL Cholesterol 36 mg/dL (>60 Neg Risk); LDL Cholesterol, Calculated 87 mg/dL; Sodium 131 mmol/L (136-145); Triglycerides 234 mg/dL (Less than 150)
[2022-06-03] MEDS: HumaLOG 300 UNITS/3 ML VIAL SC PRN ×4 (06:07→20:07)
[2022-06-03] MEDS: Acetaminophen 325 MG TAB PO PRN (06:13)
[2022-06-03] MEDS: Ipratropium/Albuterol 3 ML NEB NEB SCH ×3 (07:05→18:25)
[2022-06-03] MEDS ORDERED: Communication Order-Pharmacy FS SCH (08:15)
[2022-06-03] MEDS: Insulin NPH Human Isophane 100 UNIT/ML (10 ML VIAL) SC SCH ×2 (08:31→16:18)
[2022-06-03] MEDS: Fluticasone Propionate Nasal Spray 16 gm Bottle NASAL SCH (08:31)
[2022-06-03] MEDS: Aspirin Chewable 81 MG TAB PO SCH (08:33)
[2022-06-03] MEDS: Carvedilol 3.125 MG TAB PO SCH (08:34)
[2022-06-03] MEDS: Triamterene/Hydrochlorothiazide 37.5 mg/25 mg Tablet PO SCH (08:34)
[2022-06-03] MEDS: Amlodipine 5 MG TAB PO SCH (08:35)
[2022-06-03] MEDS: Lisinopril 20 MG TAB PO SCH ×2 (08:35→20:06)
[2022-06-03] MEDS ORDERED: Ketorolac Tromethamine 30 MG/ML VIAL IVP SCH (09:00)
[2022-06-03 13:33] LABS: Hemoglobin A1c 10.8 % (4.0-6.0)
[2022-06-03] MEDS: Ketorolac Tromethamine 30 MG/ML VIAL IVP SCH ×2 (16:17→21:32)
[2022-06-03] MEDS: Carvedilol 6.25 MG TAB PO SCH (16:18)
[2022-06-03] MEDS: Atorvastatin Calcium 40 MG TAB PO SCH (20:06)
[2022-06-04] MEDS: Ketorolac Tromethamine 30 MG/ML VIAL IVP SCH ×4 (04:42→20:59)
[2022-06-04 05:00] LABS: #Eosinphils 0.4 thou/uL (0.0-0.7); #Lymphocytes 2.1 thou/uL (1.20-3.40); #Monocytes 0.8 thou/uL (0.11-0.59); #Neutrophils 3.7 thou/uL (1.40-6.50); %Basophils 0.3 % (0.0-1.0); %Eosinophils 5.1 % (0.0-10.0); %Lymphocytes 30.2 % (21.0-51.0); %Monocytes 11.5 % (0.0-10.0); %Neutrophils 52.7 % (42.0-75.0); Hemoglobin 14.4 g/dL (14.0-18.0); Mean Corpuscular HGB CONC 33.6 g/dL (32.0-36.0); Mean Corpuscular Hemoglobin 31.7 pg (27.0-31.0); Mean Corpuscular Volume 94.5 fl (78.0-98.0); Mean Platelet Volume 9.1 fL (7.4-10.4); Platelet Count 167 10x3/uL (130-400); Red Blood Cell (RBC) Count 4.55 mill/uL (4.70-6.10)
[2022-06-04 05:25] LABS: Anion Gap 15 mmol/L (10-20); BUN (Urea Nitrogen) 18 mg/dL (8.4-25.7); Calc. Creatinine Clearance 153 mL/min (70-130); Carbon Dioxide 20 mmol/L (22-29); Chloride 102 mmol/L (98-107); Estimated GFR 96; Glucose 366 mg/dL (70-105); Potassium 4.3 mmol/L (3.5-5.1); Sodium 133 mmol/L (136-145)
[2022-06-04] MEDS: Fluticasone Propionate Nasal Spray 16 gm Bottle NASAL SCH ×2 (05:42→10:44)
[2022-06-04] MEDS: Carvedilol 6.25 MG TAB PO SCH ×2 (05:43→15:45)
[2022-06-04] MEDS: Lisinopril 20 MG TAB PO SCH ×2 (05:44→20:58)
[2022-06-04] MEDS: Aspirin Chewable 81 MG TAB PO SCH (05:44)
[2022-06-04] MEDS: Amlodipine 5 MG TAB PO SCH (05:44)
[2022-06-04] MEDS: HumaLOG 300 UNITS/3 ML VIAL SC PRN ×2 (05:45→21:13)
[2022-06-04] MEDS: Ipratropium/Albuterol 3 ML NEB NEB SCH ×3 (06:22→18:29)
[2022-06-04] MEDS ORDERED: Lidocaine 1% (PF) 30 ML VIAL ONE (08:28)
[2022-06-04] MEDS ORDERED: Verapamil 5 MG/2 ML VIAL ONE (08:29)
[2022-06-04] MEDS ORDERED: Nitroglycerin 100MG/250ML BOT 250 ML ONE (08:30)
[2022-06-04] MEDS ORDERED: Heparin 10,000 UNITS/ 10 ML VIAL ONE (08:31)
[2022-06-04] MEDS ORDERED: Lidocaine 1% PF 5 ML VIAL ONE (08:42)
[2022-06-04] MEDS ORDERED: Midazolam HCl 2 mg/2 ml Vial ONE (09:15)
[2022-06-04] MEDS ORDERED: FENTANYL 50 MCG/ML 1 ML VIAL ONE (09:15)
[2022-06-04] MEDS ORDERED: Acetaminophen/Codeine 30-300mg Tablet PO PRN (10:04)
[2022-06-04] MEDS ORDERED: Sodium Chloride 0.9% 200 ML IV PRN (10:04)
[2022-06-04] MEDS ORDERED: Sodium Chloride 0.9% 500 ML IV SCH (10:15)
[2022-06-04] MEDS: Insulin NPH Human Isophane 100 UNIT/ML (10 ML VIAL) SC SCH ×2 (10:45→15:45)
[2022-06-04] MEDS: Triamterene/Hydrochlorothiazide 37.5 mg/25 mg Tablet PO SCH (10:45)
[2022-06-04] MEDS ORDERED: Iopamidol 370 76% 100 ML VIAL ONE ×2 (14:50)
[2022-06-04] MEDS ORDERED: Insulin NPH Human Isophane 100 UNIT/ML (10 ML VIAL) SC SCH ×2 (16:30→21:00)
[2022-06-04] MEDS ORDERED: Communication Order-Pharmacy FS SCH (18:30)
[2022-06-04] MEDS: Atorvastatin Calcium 40 MG TAB PO SCH (20:58)
[2022-06-05] MEDS ORDERED: Sodium Chloride 0.9% 500 ML IV SCH ×2 (00:01→08:45)
[2022-06-05 05:10] LABS: #Eosinphils 0.4 thou/uL (0.0-0.7); #Lymphocytes 2.1 thou/uL (1.20-3.40); #Monocytes 0.9 thou/uL (0.11-0.59); #Neutrophils 4.5 thou/uL (1.40-6.50); %Basophils 0.2 % (0.0-1.0); %Eosinophils 4.7 % (0.0-10.0); %Lymphocytes 26.8 % (21.0-51.0); %Monocytes 11.4 % (0.0-10.0); %Neutrophils 56.9 % (42.0-75.0); Hemoglobin 14.3 g/dL (14.0-18.0); Mean Corpuscular HGB CONC 34.8 g/dL (32.0-36.0); Mean Corpuscular Hemoglobin 32.1 pg (27.0-31.0); Mean Corpuscular Volume 92.3 fl (78.0-98.0); Mean Platelet Volume 9.5 fL (7.4-10.4); Platelet Count 145 10x3/uL (130-400); RBC Distribution Width 11.9 % (11.5-14.5); Red Blood Cell (RBC) Count 4.44 mill/uL (4.70-6.10); White Blood Cell (WBC) Count 7.8 10x3/uL (4.8-10.8)
[2022-06-05 05:28] LABS: Anion Gap 14 mmol/L (10-20); BUN (Urea Nitrogen) 17 mg/dL (8.4-25.7); Calc. Creatinine Clearance 160 mL/min (70-130); Carbon Dioxide 23 mmol/L (22-29); Chloride 103 mmol/L (98-107); Estimated GFR 100; Glucose 284 mg/dL (70-105); Potassium 4.1 mmol/L (3.5-5.1); Sodium 136 mmol/L (136-145)
[2022-06-05] MEDS ORDERED: Adenosine 6 MG/2 ML VIAL ONE (06:25)
[2022-06-05] MEDS ORDERED: Nitroglycerin 100MG/250ML BOT 250 ML ONE (06:25)
[2022-06-05] MEDS ORDERED: Heparin 10,000 UNITS/ 10 ML VIAL ONE ×3 (06:25→08:07)
[2022-06-05] MEDS: Ipratropium/Albuterol 3 ML NEB NEB SCH ×3 (06:25→18:24)
[2022-06-05] MEDS ORDERED: Lidocaine 1% (PF) 30 ML VIAL ONE (06:25)
[2022-06-05] MEDS: Lisinopril 20 MG TAB PO SCH (06:26)
[2022-06-05] MEDS: Aspirin Chewable 81 MG TAB PO SCH (06:26)
[2022-06-05] MEDS: Amlodipine 5 MG TAB PO SCH (06:26)
[2022-06-05] MEDS: Carvedilol 6.25 MG TAB PO SCH ×2 (06:26→16:37)
[2022-06-05] MEDS: HumaLOG 300 UNITS/3 ML VIAL SC PRN ×3 (06:28→22:05)
[2022-06-05] MEDS ORDERED: Midazolam HCl 2 mg/2 ml Vial ONE (06:57)
[2022-06-05] MEDS ORDERED: FENTANYL 50 MCG/ML 1 ML VIAL ONE (06:58)
[2022-06-05] MEDS ORDERED: TICAGRELOR 90 MG TABLET ONE (07:29)
[2022-06-05] MEDS: Triamterene/Hydrochlorothiazide 37.5 mg/25 mg Tablet PO SCH (09:44)
[2022-06-05] MEDS: TICAGRELOR 90 MG TABLET PO SCH ×2 (09:44→22:05)
[2022-06-05] MEDS: Morphine 2 MG/ML VIAL SLOW IVP PRN ×2 (12:38→22:08)
[2022-06-05] MEDS: Insulin NPH Human Isophane 100 UNIT/ML (10 ML VIAL) SC SCH (16:38)
[2022-06-05] MEDS: Lisinopril 5 MG TAB PO SCH (22:04)
[2022-06-05] MEDS: Atorvastatin Calcium 40 MG TAB PO SCH (22:04)
[2022-06-06 05:20] LABS: #Basophils 0.1 thou/uL (0.0-0.2); #Eosinphils 0.3 thou/uL (0.0-0.7); #Lymphocytes 1.8 thou/uL (1.20-3.40); #Monocytes 0.6 thou/uL (0.11-0.59); #Neutrophils 3.9 thou/uL (1.40-6.50); %Basophils 0.8 % (0.0-1.0); %Lymphocytes 26.5 % (21.0-51.0); %Monocytes 9.4 % (0.0-10.0); %Neutrophils 58.3 % (42.0-75.0); Hemoglobin 13.7 g/dL (14.0-18.0); Mean Corpuscular HGB CONC 33.8 g/dL (32.0-36.0); Mean Corpuscular Hemoglobin 31.7 pg (27.0-31.0); Mean Corpuscular Volume 93.6 fl (78.0-98.0); Mean Platelet Volume 8.9 fL (7.4-10.4); Platelet Count 149 10x3/uL (130-400); RBC Distribution Width 11.9 % (11.5-14.5); Red Blood Cell (RBC) Count 4.32 mill/uL (4.70-6.10); White Blood Cell (WBC) Count 6.7 10x3/uL (4.8-10.8)
[2022-06-06 05:44] LABS: ALT (SGPT) 22 U/L (8-55); AST (SGOT) 17 U/L (5-34); Albumin 3.5 g/dL (3.5-5.0); Alkaline Phosphatase 67 U/L (40-110); Anion Gap 14 mmol/L (10-20); BUN (Urea Nitrogen) 10 mg/dL (8.4-25.7); Bilirubin, Total 0.7 mg/dL (0.2-1.2); Calc. Creatinine Clearance 170 mL/min (70-130); Calcium 9.1 mg/dL (7.8-10.44); Carbon Dioxide 24 mmol/L (22-29); Chloride 101 mmol/L (98-107); Estimated GFR 102; Glucose 215 mg/dL (70-105); Magnesium 1.7 mg/dL (1.6-2.6); Protein, Total 6.5 g/dL (6.0-8.3); Sodium 135 mmol/L (136-145)
[2022-06-06] MEDS: Morphine 2 MG/ML VIAL SLOW IVP PRN (06:43)
[2022-06-06] MEDS: HumaLOG 300 UNITS/3 ML VIAL SC PRN ×2 (06:44→11:38)
[2022-06-06] MEDS: Ipratropium/Albuterol 3 ML NEB NEB SCH ×2 (07:27→13:02)
[2022-06-06] MEDS: Carvedilol 6.25 MG TAB PO SCH (07:48)
[2022-06-06] MEDS: Lisinopril 5 MG TAB PO SCH (07:48)
[2022-06-06] MEDS: Fluticasone Propionate Nasal Spray 16 gm Bottle NASAL SCH (07:48)
[2022-06-06] MEDS: Aspirin Chewable 81 MG TAB PO SCH (07:49)
[2022-06-06] MEDS: Triamterene/Hydrochlorothiazide 37.5 mg/25 mg Tablet PO SCH (07:50)
[2022-06-06] MEDS: TICAGRELOR 90 MG TABLET PO SCH (07:51)
[2022-06-06] MEDS: Insulin NPH Human Isophane 100 UNIT/ML (10 ML VIAL) SC SCH (07:51)
[2022-06-06] MEDS ORDERED: Magnesium 2 GM/50 ML(in water) 2 GM in Premix Bag 1 BAG IVPB SCH (08:00)
[2022-06-06 12:27] VITALS: BP 132/76; TEMP 98
== END 2022-06-06 13:15 | disposition home or self-care (01) | DRG 248 ==
LOC: ERS 14:01 → 2SW 16:02 → OBSVTOIN 06-01 10:56 → 2SW 06-01 18:36
PROVIDERS: ADMIT Internal Medicine; ATTEND Hospitalist
PROC: 4A023N7 Measurement of Cardiac Sampling and Pressure, Left Heart, Percutaneous Approach (ICD-10-PCS; principal; 2022-06-04)
PROC: B2111ZZ Fluoroscopy of Multiple Coronary Arteries using Low Osmolar Contrast (ICD-10-PCS; 2022-06-04)
PROC: B2151ZZ Fluoroscopy of Left Heart using Low Osmolar Contrast (ICD-10-PCS; 2022-06-04)
PROC: 02713GZ Dilation of Coronary Artery, Two Arteries with Four or More Intraluminal Devices, Percutaneous Approach (ICD-10-PCS; 2022-06-05)
DX: I25.119 Atherosclerotic heart disease of native coronary artery with unspecified angina pectoris (principal); J96.10 Chronic respiratory failure, unspecified whether with hypoxia or hypercapnia; Z68.41 Body mass index [BMI] 40.0-44.9, adult; I10 Essential (primary) hypertension; J44.9 Chronic obstructive pulmonary disease, unspecified; N40.0 Benign prostatic hyperplasia without lower urinary tract symptoms; E78.5 Hyperlipidemia, unspecified; R55 Syncope and collapse; E83.42 Hypomagnesemia; K70.30 Alcoholic cirrhosis of liver without ascites; E66.01 Morbid (severe) obesity due to excess calories; G47.30 Sleep apnea, unspecified; G47.33 Obstructive sleep apnea (adult) (pediatric); F32.A Depression, unspecified; G43.909 Migraine, unspecified, not intractable, without status migrainosus; F41.9 Anxiety disorder, unspecified; I25.2 Old myocardial infarction; Z79.51 Long term (current) use of inhaled steroids; Z87.891 Personal history of nicotine dependence; Z98.890 Other specified postprocedural states; Z79.899 Other long term (current) drug therapy; Z79.4 Long term (current) use of insulin; Z79.84 Long term (current) use of oral hypoglycemic drugs; Z82.49 Family history of ischemic heart disease and other diseases of the circulatory system; Z99.81 Dependence on supplemental oxygen; Z20.822 Contact with and (suspected) exposure to COVID-19
CPT/HCPCS: 36415; 36416; 70450; 71045; 71275; 80048; 80053; 80061; 82550; 83036; 83690; 83735; 83880; 84484; 85025; 85347; 92928; 92929; 93005; 93010; 93306; 93458; 94640; 94760; 96372; 96374; 97139; 99152; 99153; C1769; C1887; C1894; G0378; J0153; J1644; J1650; J1815; J1885; J2001; J2250; J2272; J3010; J3475; J7030; J7620; Q9967; U0003; U0005

== ENCOUNTER 2022-08-28 23:34 | Emergency (ER) | payer SELFPAY | END 2022-08-29 00:12 | disposition left against medical advice (07) | LOC: ERS 23:34 | DX: Z53.21 Procedure and treatment not carried out due to patient leaving prior to being seen by health care provider (principal) ==

== ENCOUNTER 2022-08-29 21:17 | Emergency (ER) | payer SELFPAY ==
[~2022-08-29 21:17] MED LIST changes: +Iopamidol 370 76% 100 ML VIAL ONE; -Iopamidol-370 76% 500 ML 1 ML ONE
[2022-08-29] MEDS ORDERED: Cefepime 2 GM VIAL ONE (21:34)
[2022-08-29] MEDS ORDERED: Ondansetron PF 4 MG/2 ML Vial ONE (21:34)
[2022-08-29] MEDS ORDERED: Morphine 4 MG/ML VIAL ONE (21:34)
[2022-08-29] MEDS ORDERED: Ketorolac Tromethamine 30 MG/ML VIAL ONE (21:34)
[2022-08-29 21:50] LABS: #Eosinphils 0.3 thou/uL (0.0-0.7); #Lymphocytes 1.6 thou/uL (1.20-3.40); #Monocytes 1.1 thou/uL (0.11-0.59); #Neutrophils 8.2 thou/uL (1.40-6.50); %Eosinophils 2.7 % (0.0-10.0); %Lymphocytes 14.2 % (21.0-51.0); %Monocytes 9.7 % (0.0-10.0); %Neutrophils 73.4 % (42.0-75.0); Hemoglobin 14.7 g/dL (14.0-18.0); Mean Corpuscular HGB CONC 36.1 g/dL (32.0-36.0); Mean Corpuscular Hemoglobin 33.2 pg (27.0-31.0); Mean Corpuscular Volume 91.8 fl (78.0-98.0); Platelet Count 185 10x3/uL (130-400); RBC Distribution Width 12.2 % (11.5-14.5); Red Blood Cell (RBC) Count 4.43 mill/uL (4.70-6.10); White Blood Cell (WBC) Count 11.1 10x3/uL (4.8-10.8)
[2022-08-29 22:12] LABS: ALT (SGPT) 9 U/L (8-55); AST (SGOT) 6 U/L (5-34); Albumin 3.9 g/dL (3.5-5.0); Alkaline Phosphatase 88 U/L (40-110); Anion Gap 17 mmol/L (10-20); BUN (Urea Nitrogen) 12 mg/dL (8.4-25.7); Bilirubin, Total 0.5 mg/dL (0.2-1.2); Calc. Creatinine Clearance 0 mL/min (70-130); Calcium 9.2 mg/dL (7.8-10.44); Carbon Dioxide 17 mmol/L (22-29); Chloride 104 mmol/L (98-107); Estimated GFR 65; Globulin 3.4 g/dL (2.4-3.5); Potassium 3.7 mmol/L (3.5-5.1); Protein, Total 7.3 g/dL (6.0-8.3); Sodium 134 mmol/L (136-145)
[2022-08-29 22:29] LABS: Glucose 447 mg/dL (70-105)
[2022-08-30] MEDS ORDERED: Lidocaine 1% (PF) 30 ML VIAL ONE (00:18)
[2022-08-30 00:46] LABS: Lactic Acid 1.1 mmol/L (0.5-2.2)
== END 2022-08-30 00:59 | disposition home or self-care (01) ==
LOC: ERS 21:17
DX: L05.01 Pilonidal cyst with abscess (principal); E11.65 Type 2 diabetes mellitus with hyperglycemia; D72.829 Elevated white blood cell count, unspecified; E78.5 Hyperlipidemia, unspecified; I10 Essential (primary) hypertension; J44.9 Chronic obstructive pulmonary disease, unspecified
CPT/HCPCS: 10080; 36415; 72193; 80053; 82010; 83605; 85025; 87040; 96365; 96375; J0692; J1885; J2001; J2270; J2405; Q9967

== ENCOUNTER 2022-12-05 18:48 | Inpatient (IN) | payer OTHER, SELFPAY ==
[2022-12-05 19:15] LABS: #Eosinphils 0.3 thou/uL (0.0-0.7); #Monocytes 0.7 thou/uL (0.11-0.59); %Basophils 0.5 % (0.0-1.0); %Eosinophils 4.1 % (0.0-10.0); %Lymphocytes 32.5 % (21.0-51.0); %Monocytes 9.1 % (0.0-10.0); %Neutrophils 53.5 % (42.0-75.0); Hemoglobin 13.3 g/dL (14.0-18.0); Mean Corpuscular HGB CONC 34.1 g/dL (32.0-36.0); Mean Corpuscular Hemoglobin 31.3 pg (27.0-31.0); Mean Corpuscular Volume 91.8 fl (78.0-98.0); Platelet Count 190 10x3/uL (130-400); RBC Distribution Width 12.9 % (11.5-14.5); Red Blood Cell (RBC) Count 4.25 mill/uL (4.70-6.10); White Blood Cell (WBC) Count 7.5 10x3/uL (4.8-10.8)
[2022-12-05] MEDS ORDERED: Nitroglycerin 0.4 MG TAB 1 EACH ONE ×3 (19:25→19:33)
[2022-12-05] MEDS ORDERED: Heparin 10,000 UNITS/ 10 ML VIAL ONE (19:29)
[2022-12-05] MEDS ORDERED: Heparin 25,000 units/D5W 500 ML ONE (19:29)
[2022-12-05] MEDS ORDERED: fentaNYL 50 mcg/mL 1 mL Vial ONE (19:33)
[2022-12-05 19:44] LABS: ALT (SGPT) 12 U/L (8-55); AST (SGOT) 10 U/L (5-34); Albumin 3.6 g/dL (3.5-5.0); Alkaline Phosphatase 79 U/L (40-110); Anion Gap 14 mmol/L (10-20); BUN (Urea Nitrogen) 7 mg/dL (8.4-25.7); Bilirubin, Total 0.8 mg/dL (0.2-1.2); Calc. Creatinine Clearance 0 mL/min (70-130); Calcium 8.7 mg/dL (7.8-10.44); Carbon Dioxide 23 mmol/L (22-29); Chloride 100 mmol/L (98-107); Estimated GFR 82; Potassium 3.7 mmol/L (3.5-5.1); Protein, Total 6.6 g/dL (6.0-8.3); Sodium 133 mmol/L (136-145)
[2022-12-05 19:49] LABS: Glucose 467 mg/dL (70-105)
[2022-12-05 19:57] LABS: Actual Bicarbonate (HCO3v) 27.2 mEq/L (22-28); Base Excess 3.2 mEq/L (-2.0 to +3.0); Calcium, Ionized (venous) 1.07 mmol/L (1.16-1.32); Chloride (VBG) 99 mmol/L (98-106); Hematocrit-VBG 42 % (42.0-52.0); Hemoglobin (Hb) 14.3 g/dL (13.1-17.2); Potassium (VBG) 3.73 mmol/L (3.70-5.30); Sodium 134.5 mmol/L (133-146); pH (venous) 7.455 (7.32-7.43)
[2022-12-05] MEDS ORDERED: Ondansetron ODT 4 MG TAB SL PRN (21:30)
[2022-12-05] MEDS ORDERED: Acetaminophen 325 MG TAB PO PRN (21:30)
[2022-12-05] MEDS ORDERED: Ondansetron PF 4 MG/2 ML Vial IVP PRN (21:30)
[2022-12-05] MEDS ORDERED: Dextrose 50% Abboject 50 ML SYRINGE SLOW IVP PRN (22:42)
[2022-12-05] MEDS ORDERED: Nitroglycerin 0.4 MG TAB (25 Tab Bottle) SL PRN (22:42)
[2022-12-05] MEDS ORDERED: Dextrose 5% in Water 1,000 ML IV PRN (22:42)
[2022-12-05] MEDS ORDERED: Acetaminophen 650 MG Suppository PR PRN (22:42)
[2022-12-05] MEDS ORDERED: Glucagon 1 MG/ML KIT IM PRN (22:42)
[2022-12-05] MEDS ORDERED: HumaLOG 300 UNITS/3 ML VIAL SC PRN (22:42)
[2022-12-06] MEDS ORDERED: hydrALAZINE 25 MG TAB PO PRN (00:10)
[2022-12-06] MEDS ORDERED: TICAGRELOR 90 MG TABLET PO SCH ×2 (00:15→09:00)
[2022-12-06 00:30] VITALS: BMI 38.9
[2022-12-06] MEDS: HumaLOG 300 UNITS/3 ML VIAL SC PRN ×3 (01:05→20:46)
[2022-12-06 02:04] LABS: Troponin I 0.025 ng/mL (< 0.028)
[2022-12-06] MEDS: Enoxaparin 120 MG/0.8 ML SYRINGE SC SCH ×2 (03:18→17:53)
[2022-12-06] MEDS: Morphine 10 MG/ML VIAL SLOW IVP PRN ×2 (03:21→09:26)
[2022-12-06 04:49] LABS: #Eosinphils 0.3 thou/uL (0.0-0.7); #Monocytes 0.8 thou/uL (0.11-0.59); %Basophils 0.6 % (0.0-1.0); %Eosinophils 4.3 % (0.0-10.0); %Monocytes 11.4 % (0.0-10.0); %Neutrophils 44.4 % (42.0-75.0); Hematocrit 39.6 % (42.0-52.0); Hemoglobin 13.2 g/dL (14.0-18.0); Mean Corpuscular HGB CONC 33.3 g/dL (32.0-36.0); Mean Corpuscular Hemoglobin 30.9 pg (27.0-31.0); Mean Corpuscular Volume 92.7 fl (78.0-98.0); Mean Platelet Volume 11.4 fL (7.4-10.4); Platelet Count 179 10x3/uL (130-400); Red Blood Cell (RBC) Count 4.27 mill/uL (4.70-6.10); White Blood Cell (WBC) Count 6.7 10x3/uL (4.8-10.8)
[2022-12-06 05:11] LABS: Anion Gap 11 mmol/L (10-20); BUN (Urea Nitrogen) 8 mg/dL (8.4-25.7); Calc. Creatinine Clearance 162 mL/min (70-130); Calcium 8.8 mg/dL (7.8-10.44); Carbon Dioxide 28 mmol/L (22-29); Chloride 102 mmol/L (98-107); Estimated GFR 102; Glucose 262 mg/dL (70-105); Potassium 3.5 mmol/L (3.5-5.1); Sodium 137 mmol/L (136-145)
[2022-12-06] MEDS: hydrALAZINE 25 MG TAB PO PRN ×2 (08:37→23:28)
[2022-12-06] MEDS: Aspirin Chewable 81 MG TAB PO SCH (08:37)
[2022-12-06] MEDS ORDERED: Polyethylene Glycol 3350 17 GM Packet PO PRN (10:40)
[2022-12-06] MEDS ORDERED: Insulin NPH Human Isophane 100 UNITS/ML (10 ML VIAL) SC SCH (10:45)
[2022-12-06] MEDS ORDERED: Polyethylene Glycol 3350 17 GM Packet PO SCH (14:00)
[2022-12-06] MEDS: Atorvastatin Calcium 40 MG TAB PO SCH (20:43)
[2022-12-06] MEDS: Lisinopril 5 MG TAB PO SCH (20:45)
[2022-12-06] MEDS: Insulin NPH Human Isophane 100 UNITS/ML (10 ML VIAL) SC SCH (20:45)
[2022-12-06] MEDS: Senokot S 8.6-50 MG TAB PO SCH (20:46)
[2022-12-06] MEDS ORDERED: Bisacodyl 10 MG SUPP PR SCH (21:00)
[2022-12-07] MEDS ORDERED: Nitroglycerin 2% Ointment 1 INCH/1 GM Packet TOP SCH (01:45)
[2022-12-07 04:26] LABS: #Eosinphils 0.3 thou/uL (0.0-0.7); #Monocytes 0.7 thou/uL (0.11-0.59); %Basophils 0.6 % (0.0-1.0); %Eosinophils 4.8 % (0.0-10.0); %Lymphocytes 39.1 % (21.0-51.0); %Monocytes 10.3 % (0.0-10.0); %Neutrophils 44.6 % (42.0-75.0); Hematocrit 39.5 % (42.0-52.0); Hemoglobin 13.1 g/dL (14.0-18.0); Mean Corpuscular HGB CONC 33.2 g/dL (32.0-36.0); Mean Corpuscular Hemoglobin 30.9 pg (27.0-31.0); Mean Corpuscular Volume 93.2 fl (78.0-98.0); Mean Platelet Volume 11.1 fL (7.4-10.4); Platelet Count 183 10x3/uL (130-400); RBC Distribution Width 12.9 % (11.5-14.5); Red Blood Cell (RBC) Count 4.24 mill/uL (4.70-6.10); White Blood Cell (WBC) Count 6.6 10x3/uL (4.8-10.8)
[2022-12-07 04:55] LABS: Anion Gap 14 mmol/L (10-20); BUN (Urea Nitrogen) 10 mg/dL (8.4-25.7); Calc. Creatinine Clearance 170 mL/min (70-130); Calcium 8.5 mg/dL (7.8-10.44); Carbon Dioxide 24 mmol/L (22-29); Chloride 103 mmol/L (98-107); Estimated GFR 103; Glucose 158 mg/dL (70-105); Potassium 3.5 mmol/L (3.5-5.1); Sodium 137 mmol/L (136-145)
[2022-12-07] MEDS: Morphine 4 MG/ML VIAL SLOW IVP PRN ×4 (05:28→21:12)
[2022-12-07] MEDS: Aspirin Chewable 81 MG TAB PO SCH (08:29)
[2022-12-07] MEDS: Senokot S 8.6-50 MG TAB PO SCH ×2 (08:29→20:50)
[2022-12-07] MEDS: Clopidogrel Bisulfate 75 MG TAB PO SCH (08:30)
[2022-12-07] MEDS: Lisinopril 5 MG TAB PO SCH ×2 (08:30→20:52)
[2022-12-07] MEDS: Carvedilol 6.25 MG TAB PO SCH ×2 (08:30→17:04)
[2022-12-07] MEDS ORDERED: Electrolyte Replacement Protocol 1 EACH FS SCH (08:30)
[2022-12-07] MEDS: Insulin NPH Human Isophane 100 UNITS/ML (10 ML VIAL) SC SCH ×3 (08:31→20:54)
[2022-12-07] MEDS ORDERED: Enoxaparin 120 MG/0.8 ML SYRINGE SC SCH (09:00)
[2022-12-07] MEDS ORDERED: Potassium Chloride 20 MEQ TAB PO SCH (09:00)
[2022-12-07 09:15] LABS: Magnesium 1.6 mg/dL (1.6-2.6)
[2022-12-07] MEDS ORDERED: Magnesium 2 GM/50 ML(in water) 2 GM in Premix Bag 1 BAG IVPB SCH (10:00)
[2022-12-07] MEDS ORDERED: Milk Of Magnesia 30 ML UDCUP PO SCH (11:15)
[2022-12-07] MEDS ORDERED: Polyethylene Glycol 3350 17 GM Packet PO SCH (11:15)
[2022-12-07] MEDS: HumaLOG 300 UNITS/3 ML VIAL SC PRN ×2 (11:28→17:05)
[2022-12-07] MEDS: Atorvastatin Calcium 40 MG TAB PO SCH (20:49)
[2022-12-07] MEDS: Bisacodyl 10 MG SUPP PR SCH (20:50)
[2022-12-07] MEDS: Polyethylene Glycol 3350 17 GM Packet PO SCH (20:51)
[2022-12-07] MEDS: Magnesium Oxide 400 MG TAB PO SCH (20:51)
[2022-12-07] MEDS: Methylcellulose 500 MG TAB PO SCH (20:52)
[2022-12-08 04:46] LABS: #Basophils 0.1 thou/uL (0.0-0.2); #Eosinphils 0.3 thou/uL (0.0-0.7); #Monocytes 0.6 thou/uL (0.11-0.59); #Neutrophils 2.8 thou/uL (1.40-6.50); %Basophils 0.8 % (0.0-1.0); %Lymphocytes 36.3 % (21.0-51.0); %Neutrophils 47.4 % (42.0-75.0); Hematocrit 40.5 % (42.0-52.0); Hemoglobin 13.3 g/dL (14.0-18.0); Mean Corpuscular HGB CONC 32.8 g/dL (32.0-36.0); Mean Corpuscular Hemoglobin 30.9 pg (27.0-31.0); Mean Corpuscular Volume 94.2 fl (78.0-98.0); Mean Platelet Volume 11.1 fL (7.4-10.4); Platelet Count 185 10x3/uL (130-400); RBC Distribution Width 12.9 % (11.5-14.5)
[2022-12-08 05:14] LABS: Anion Gap 12 mmol/L (10-20); BUN (Urea Nitrogen) 11 mg/dL (8.4-25.7); Calc. Creatinine Clearance 153 mL/min (70-130); Calcium 8.5 mg/dL (7.8-10.44); Carbon Dioxide 24 mmol/L (22-29); Chloride 105 mmol/L (98-107); Estimated GFR 100; Glucose 180 mg/dL (70-105); Magnesium 1.9 mg/dL (1.6-2.6); Potassium 3.8 mmol/L (3.5-5.1); Sodium 137 mmol/L (136-145)
[2022-12-08] MEDS ORDERED: Magnesium 2 GM/50 ML(in water) 2 GM in Premix Bag 1 BAG IVPB SCH (08:00)
[2022-12-08] MEDS: Magnesium Oxide 400 MG TAB PO SCH ×2 (08:20→21:24)
[2022-12-08] MEDS: Clopidogrel Bisulfate 75 MG TAB PO SCH (08:20)
[2022-12-08] MEDS: Lisinopril 5 MG TAB PO SCH ×2 (08:21→21:24)
[2022-12-08] MEDS: Senokot S 8.6-50 MG TAB PO SCH ×2 (08:21→21:24)
[2022-12-08] MEDS: Aspirin Chewable 81 MG TAB PO SCH (08:21)
[2022-12-08] MEDS: Methylcellulose 500 MG TAB PO SCH ×2 (08:21→21:23)
[2022-12-08] MEDS: Insulin NPH Human Isophane 100 UNITS/ML (10 ML VIAL) SC SCH ×2 (08:22→21:25)
[2022-12-08] MEDS: Carvedilol 6.25 MG TAB PO SCH ×2 (08:22→18:15)
[2022-12-08] MEDS: Polyethylene Glycol 3350 17 GM Packet PO SCH ×2 (08:23→21:22)
[2022-12-08] MEDS: Morphine 4 MG/ML VIAL SLOW IVP PRN (08:30)
[2022-12-08] MEDS ORDERED: Morphine 4 MG/ML VIAL SLOW IVP PRN (08:37)
[2022-12-08] MEDS: Magnesium Citrate 300 ML BOT PO SCH ×2 (10:38→21:35)
[2022-12-08] MEDS: Atorvastatin Calcium 40 MG TAB PO SCH (21:24)
[2022-12-08] MEDS: Bisacodyl 10 MG SUPP PR SCH (21:25)
[2022-12-08] MEDS: Morphine 2 MG/ML VIAL SLOW IVP PRN (21:42)
[2022-12-09 04:17] LABS: #Eosinphils 0.3 thou/uL (0.0-0.7); #Neutrophils 5.6 thou/uL (1.40-6.50); %Basophils 0.3 % (0.0-1.0); %Eosinophils 3.3 % (0.0-10.0); %Lymphocytes 22.3 % (21.0-51.0); %Monocytes 10.7 % (0.0-10.0); %Neutrophils 62.8 % (42.0-75.0); Hematocrit 40.6 % (42.0-52.0); Hemoglobin 13.4 g/dL (14.0-18.0); Mean Platelet Volume 11.3 fL (7.4-10.4); Platelet Count 189 10x3/uL (130-400); RBC Distribution Width 12.7 % (11.5-14.5); Red Blood Cell (RBC) Count 4.32 mill/uL (4.70-6.10); White Blood Cell (WBC) Count 8.9 10x3/uL (4.8-10.8)
[2022-12-09 04:44] LABS: Anion Gap 12 mmol/L (10-20); BUN (Urea Nitrogen) 9 mg/dL (8.4-25.7); Calc. Creatinine Clearance 156 mL/min (70-130); Carbon Dioxide 24 mmol/L (22-29); Chloride 104 mmol/L (98-107); Estimated GFR 100; Glucose 212 mg/dL (70-105); Potassium 3.9 mmol/L (3.5-5.1); Sodium 136 mmol/L (136-145)
[2022-12-09] MEDS: hydrALAZINE 25 MG TAB PO PRN (06:02)
[2022-12-09] MEDS ORDERED: Polyethylene Glycol 3350 17 GM Packet PO PRN (09:22)
[2022-12-09] MEDS: Methylcellulose 500 MG TAB PO SCH ×2 (09:55→20:54)
[2022-12-09] MEDS: Insulin NPH Human Isophane 100 UNITS/ML (10 ML VIAL) SC SCH ×2 (09:55→20:55)
[2022-12-09] MEDS: Carvedilol 6.25 MG TAB PO SCH ×2 (09:57→18:40)
[2022-12-09] MEDS: Clopidogrel Bisulfate 75 MG TAB PO SCH (09:57)
[2022-12-09] MEDS: Magnesium Oxide 400 MG TAB PO SCH ×2 (09:57→20:54)
[2022-12-09] MEDS: Lisinopril 5 MG TAB PO SCH ×2 (09:58→20:55)
[2022-12-09] MEDS: Aspirin Chewable 81 MG TAB PO SCH (09:58)
[2022-12-09] MEDS ORDERED: Polyethylene Glycol 3350 17 GM Packet PO SCH (10:00)
[2022-12-09] MEDS ORDERED: Milk Of Magnesia 30 ML UDCUP PO SCH (10:00)
[2022-12-09] MEDS: Polyethylene Glycol 3350 17 GM Packet PO SCH ×2 (10:32→20:52)
[2022-12-09] MEDS: Senokot S 8.6-50 MG TAB PO SCH ×2 (10:32→20:54)
[2022-12-09] MEDS: HumaLOG 300 UNITS/3 ML VIAL SC PRN ×2 (12:09→18:26)
[2022-12-09] MEDS ORDERED: Communication Order-Pharmacy FS SCH (16:30)
[2022-12-09] MEDS ORDERED: Ketorolac Tromethamine 30 MG/ML VIAL IVP SCH (19:45)
[2022-12-09] MEDS: cefTRIAXone\\ROCEPHIN 1 GM in Sodium Chloride 0.9% 100 ML IVPB SCH (20:54)
[2022-12-09] MEDS: Atorvastatin Calcium 40 MG TAB PO SCH (20:55)
[2022-12-09] MEDS: Bisacodyl 10 MG SUPP PR SCH (20:56)
[2022-12-10] MEDS: Sodium Chloride 0.9% 1,000 ML IV SCH ×3 (00:21→20:35)
[2022-12-10] MEDS: Carvedilol 6.25 MG TAB PO SCH ×2 (06:16→16:38)
[2022-12-10] MEDS: HumaLOG 300 UNITS/3 ML VIAL SC PRN ×3 (06:18→21:56)
[2022-12-10] MEDS: Clopidogrel Bisulfate 75 MG TAB PO SCH (07:53)
[2022-12-10] MEDS: Aspirin Chewable 81 MG TAB PO SCH (07:53)
[2022-12-10] MEDS: Polyethylene Glycol 3350 17 GM Packet PO SCH ×2 (07:54→20:38)
[2022-12-10] MEDS: Senokot S 8.6-50 MG TAB PO SCH ×2 (07:54→20:35)
[2022-12-10] MEDS: Methylcellulose 500 MG TAB PO SCH ×2 (07:54→20:36)
[2022-12-10] MEDS: Lisinopril 5 MG TAB PO SCH ×2 (07:55→20:36)
[2022-12-10] MEDS: Magnesium Oxide 400 MG TAB PO SCH ×2 (07:55→20:36)
[2022-12-10] MEDS ORDERED: Iopamidol 370 76% 100 ML VIAL ONE (09:30)
[2022-12-10] MEDS: Insulin NPH Human Isophane 100 UNITS/ML (10 ML VIAL) SC SCH ×2 (10:00→20:36)
[2022-12-10] MEDS: Triple Antibiotic Oint 1 GM Packet TOP SCH ×3 (11:00→20:36)
[2022-12-10] MEDS ORDERED: Midazolam HCl 2 mg/2 ml Vial ONE (11:09)
[2022-12-10] MEDS ORDERED: fentaNYL 50 mcg/mL 1 mL Vial ONE (11:09)
[2022-12-10] MEDS ORDERED: Heparin 10,000 UNITS/ 10 ML VIAL ONE ×2 (11:10→12:32)
[2022-12-10] MEDS ORDERED: Lidocaine 1% (PF) 30 ML VIAL ONE (11:10)
[2022-12-10] MEDS ORDERED: Nitroglycerin 50 MG/250 ML BOT 250 ML ONE (11:10)
[2022-12-10] MEDS ORDERED: Adenosine 6 MG/2 ML VIAL ONE (12:21)
[2022-12-10] MEDS ORDERED: Clopidogrel Bisulfate 300 MG TAB ONE (13:13)
[2022-12-10] MEDS: Morphine 2 MG/ML VIAL SLOW IVP PRN (16:42)
[2022-12-10] MEDS: cefTRIAXone\\ROCEPHIN 1 GM in Sodium Chloride 0.9% 100 ML IVPB SCH (20:34)
[2022-12-10] MEDS: Atorvastatin Calcium 40 MG TAB PO SCH (20:36)
[2022-12-10] MEDS: Bisacodyl 10 MG SUPP PR SCH (20:36)
[2022-12-11] MEDS ORDERED: Acetaminophen 325 MG TAB PO PRN (04:55)
[2022-12-11] MEDS ORDERED: Acetaminophen 500 MG TAB PO SCH (05:00)
[2022-12-11 05:10] LABS: #Basophils 0.1 thou/uL (0.0-0.2); #Eosinphils 0.3 thou/uL (0.0-0.7); #Monocytes 0.9 thou/uL (0.11-0.59); #Neutrophils 4.3 thou/uL (1.40-6.50); %Basophils 0.7 % (0.0-1.0); %Eosinophils 3.9 % (0.0-10.0); %Lymphocytes 25.5 % (21.0-51.0); %Monocytes 11.8 % (0.0-10.0); %Neutrophils 57.3 % (42.0-75.0); Hematocrit 39.1 % (42.0-52.0); Mean Corpuscular HGB CONC 33.2 g/dL (32.0-36.0); Mean Corpuscular Hemoglobin 31.4 pg (27.0-31.0); Mean Corpuscular Volume 94.4 fl (78.0-98.0); Mean Platelet Volume 11.5 fL (7.4-10.4); Platelet Count 172 10x3/uL (130-400); RBC Distribution Width 12.7 % (11.5-14.5); Red Blood Cell (RBC) Count 4.14 mill/uL (4.70-6.10); White Blood Cell (WBC) Count 7.5 10x3/uL (4.8-10.8)
[2022-12-11] MEDS: HumaLOG 300 UNITS/3 ML VIAL SC PRN ×2 (05:17→11:56)
[2022-12-11 05:37] LABS: Anion Gap 11 mmol/L (10-20); BUN (Urea Nitrogen) 9 mg/dL (8.4-25.7); Calc. Creatinine Clearance 163 mL/min (70-130); Calcium 8.7 mg/dL (7.8-10.44); Carbon Dioxide 22 mmol/L (22-29); Chloride 106 mmol/L (98-107); Estimated GFR 102; Glucose 245 mg/dL (70-105); Magnesium 1.6 mg/dL (1.6-2.6); Sodium 135 mmol/L (136-145)
[2022-12-11] MEDS ORDERED: Magnesium 2 GM/50 ML(in water) 2 GM in Premix Bag 1 BAG IVPB SCH (08:00)
[2022-12-11] MEDS: Carvedilol 6.25 MG TAB PO SCH (08:27)
[2022-12-11] MEDS: Clopidogrel Bisulfate 75 MG TAB PO SCH (08:27)
[2022-12-11] MEDS: Aspirin Chewable 81 MG TAB PO SCH (08:28)
[2022-12-11] MEDS: Triple Antibiotic Oint 1 GM Packet TOP SCH (08:28)
[2022-12-11] MEDS: Magnesium Oxide 400 MG TAB PO SCH (08:28)
[2022-12-11] MEDS: Lisinopril 5 MG TAB PO SCH (08:28)
[2022-12-11] MEDS: Methylcellulose 500 MG TAB PO SCH (08:30)
[2022-12-11] MEDS: Polyethylene Glycol 3350 17 GM Packet PO SCH (08:30)
[2022-12-11] MEDS: Senokot S 8.6-50 MG TAB PO SCH (08:30)
[2022-12-11] MEDS: Insulin NPH Human Isophane 100 UNITS/ML (10 ML VIAL) SC SCH (08:31)
[2022-12-11] MEDS: Sodium Chloride 0.9% 1,000 ML IV SCH (08:40)
[2022-12-11 11:11] VITALS: BP 135/79; TEMP 98.1
== END 2022-12-11 14:15 | disposition home or self-care (01) | DRG 247 ==
LOC: ERS 18:48 → 2NO 21:14 → OBSVTOIN 12-06 10:35
PROVIDERS: ADMIT Student in an Organized Health Care Education/Training Program; ATTEND Internal Medicine
PROC: 4A043R1 Measurement of Venous Saturation, Peripheral, Percutaneous Approach (ICD-10-PCS; 2022-12-05)
PROC: 027136Z Dilation of Coronary Artery, Two Arteries with Three Drug-eluting Intraluminal Devices, Percutaneous Approach (ICD-10-PCS; principal; 2022-12-10)
PROC: 4A023N7 Measurement of Cardiac Sampling and Pressure, Left Heart, Percutaneous Approach (ICD-10-PCS; 2022-12-10)
PROC: B2151ZZ Fluoroscopy of Left Heart using Low Osmolar Contrast (ICD-10-PCS; 2022-12-10)
PROC: B2111ZZ Fluoroscopy of Multiple Coronary Arteries using Low Osmolar Contrast (ICD-10-PCS; 2022-12-10)
DX: I25.110 Atherosclerotic heart disease of native coronary artery with unstable angina pectoris (principal); E87.1 Hypo-osmolality and hyponatremia; T82.855A Stenosis of coronary artery stent, initial encounter; I10 Essential (primary) hypertension; J44.9 Chronic obstructive pulmonary disease, unspecified; E11.65 Type 2 diabetes mellitus with hyperglycemia; E78.5 Hyperlipidemia, unspecified; Z66 Do not resuscitate; Z95.5 Presence of coronary angioplasty implant and graft; Z98.890 Other specified postprocedural states; Z79.82 Long term (current) use of aspirin; Z79.899 Other long term (current) drug therapy; Z79.4 Long term (current) use of insulin; F41.9 Anxiety disorder, unspecified; I25.2 Old myocardial infarction; Z91.148 Patient's other noncompliance with medication regimen for other reason; K59.00 Constipation, unspecified; E83.42 Hypomagnesemia; Z95.1 Presence of aortocoronary bypass graft; G47.30 Sleep apnea, unspecified; D53.9 Nutritional anemia, unspecified; Y83.8 Other surgical procedures as the cause of abnormal reaction of the patient, or of later complication, without mention of misadventure at the time of the procedure; Z86.73 Personal history of transient ischemic attack (TIA), and cerebral infarction without residual deficits
CPT/HCPCS: 36415; 36416; 51701; 71045; 74019; 80048; 80053; 82010; 82805; 83735; 83880; 84484; 85025; 85347; 85379; 85730; 92928; 93005; 93458; 94760; 96365; 96366; 96372; 96375; 96376; 99152; 99153; C1725; C1769; C1874; C1887; C9600; G0378; J0153; J0696; J1644; J1650; J1815; J1885; J2001; J2250; J2270; J2272; J3010; J3475; J3490; J7050

== ENCOUNTER 2023-03-01 23:16 | Inpatient (IN) | payer OTHER ==
[2023-03-01 23:43] LABS: #Eosinphils 0.2 thou/uL (0.0-0.7); #Monocytes 1.2 thou/uL (0.11-0.59); %Basophils 0.3 % (0.0-1.0); %Lymphocytes 20.2 % (21.0-51.0); %Neutrophils 66.1 % (42.0-75.0); Hematocrit 34.4 % (42.0-52.0); Hemoglobin 11.8 g/dL (14.0-18.0); Mean Corpuscular HGB CONC 34.3 g/dL (32.0-36.0); Mean Corpuscular Hemoglobin 30.9 pg (27.0-31.0); Mean Corpuscular Volume 90.1 fl (78.0-98.0); Mean Platelet Volume 10.5 fL (7.4-10.4); Platelet Count 206 10x3/uL (130-400); RBC Distribution Width 12.7 % (11.5-14.5); Red Blood Cell (RBC) Count 3.82 mill/uL (4.70-6.10); White Blood Cell (WBC) Count 10.5 10x3/uL (4.8-10.8)
[2023-03-02 00:05] LABS: ALT (SGPT) 13 U/L (8-55); AST (SGOT) 12 U/L (5-34); Albumin 3.7 g/dL (3.5-5.0); Alkaline Phosphatase 61 U/L (40-110); Anion Gap 14 mmol/L (10-20); BUN (Urea Nitrogen) 11 mg/dL (8.4-25.7); Bilirubin, Total 0.7 mg/dL (0.2-1.2); Calc. Creatinine Clearance 0 mL/min (70-130); Calcium 8.6 mg/dL (7.8-10.44); Carbon Dioxide 27 mmol/L (22-29); Chloride 101 mmol/L (98-107); Estimated GFR 81; Globulin 3.2 g/dL (2.4-3.5); Glucose 215 mg/dL (70-105); Potassium 3.5 mmol/L (3.5-5.1); Protein, Total 6.9 g/dL (6.0-8.3); Sodium 138 mmol/L (136-145)
[2023-03-02 00:09] LABS: Troponin I Less than 0.010 ng/mL (< 0.028)
[2023-03-02] MEDS ORDERED: Morphine 4 MG/ML VIAL ONE ×2 (00:17→02:08)
[2023-03-02 00:29] LABS: Lipase 23 U/L (8-78); Magnesium 1.7 mg/dL (1.6-2.6)
[2023-03-02] MEDS ORDERED: Piperacillin/Tazobactam 3.375 GM VIAL ONE (01:35)
[2023-03-02] MEDS ORDERED: Sodium Chloride 0.9% 100 ML ONE (01:35)
[2023-03-02] MEDS ORDERED: Vancomycin 1 GM/200 ML (FROZEN) BAG ONE (01:36)
[2023-03-02] MEDS ORDERED: Acetaminophen 325 MG TAB PO PRN (02:30)
[2023-03-02] MEDS ORDERED: Calcium Carbonate 500 MG ChewTAB PO PRN (02:30)
[2023-03-02] MEDS ORDERED: Ondansetron ODT 4 MG TAB PO PRN (02:30)
[2023-03-02] MEDS ORDERED: Ipratropium/Albuterol 3 ML NEB NEB PRN (02:32)
[2023-03-02] MEDS ORDERED: Glucagon 1 MG/ML KIT IM PRN (02:48)
[2023-03-02] MEDS ORDERED: Dextrose 5% in Water 1,000 ML IV PRN (02:48)
[2023-03-02] MEDS ORDERED: Dextrose 50% Abboject 50 ML SYRINGE SLOW IVP PRN (02:48)
[2023-03-02] MEDS ORDERED: HumaLOG 300 UNITS/3 ML VIAL SC PRN (02:48)
[2023-03-02 02:51] LABS: Hemoglobin A1c 8.9 % (4.0-6.0)
[2023-03-02 06:46] VITALS: BMI 40.6
[2023-03-02 06:49] LABS: #Eosinphils 0.3 thou/uL (0.0-0.7); #Monocytes 1.2 thou/uL (0.11-0.59); %Basophils 0.3 % (0.0-1.0); %Eosinophils 2.6 % (0.0-10.0); %Lymphocytes 20.5 % (21.0-51.0); %Monocytes 12.6 % (0.0-10.0); %Neutrophils 63.5 % (42.0-75.0); Hemoglobin 11.3 g/dL (14.0-18.0); Mean Corpuscular HGB CONC 33.2 g/dL (32.0-36.0); Mean Corpuscular Hemoglobin 30.4 pg (27.0-31.0); Mean Corpuscular Volume 91.4 fl (78.0-98.0); Mean Platelet Volume 10.3 fL (7.4-10.4); Platelet Count 208 10x3/uL (130-400); RBC Distribution Width 12.9 % (11.5-14.5); Red Blood Cell (RBC) Count 3.72 mill/uL (4.70-6.10); White Blood Cell (WBC) Count 9.5 10x3/uL (4.8-10.8)
[2023-03-02 07:11] LABS: Anion Gap 11 mmol/L (10-20); BUN (Urea Nitrogen) 10 mg/dL (8.4-25.7); Calc. Creatinine Clearance 163 mL/min (70-130); Calcium 8.9 mg/dL (7.8-10.44); Carbon Dioxide 28 mmol/L (22-29); Chloride 99 mmol/L (98-107); Estimated GFR 101; Glucose 119 mg/dL (70-105); Potassium 3.1 mmol/L (3.5-5.1); Sodium 135 mmol/L (136-145)
[2023-03-02] MEDS ORDERED: methylPREDNISolone Sod Succ 40 MG VIAL IVP SCH (09:00)
[2023-03-02] MEDS ORDERED: Potassium Bicarbonate/Cit Ac 20 MEQ TAB PO SCH (09:15)
[2023-03-02] MEDS ORDERED: Potassium Chloride 20 MEQ TAB PO SCH (09:15)
[2023-03-02] MEDS ORDERED: Magnesium Oxide 400 MG TAB PO SCH (09:15)
[2023-03-02 09:21] LABS: Troponin I Less than 0.010 ng/mL (< 0.028)
[2023-03-02] MEDS: Carvedilol 6.25 MG TAB PO SCH ×2 (09:45→18:11)
[2023-03-02] MEDS: Aspirin Chewable 81 MG TAB PO SCH (09:45)
[2023-03-02] MEDS: cefTRIAXone\\ROCEPHIN 1 GM in Sodium Chloride 0.9% 100 ML IVPB SCH (09:46)
[2023-03-02] MEDS: Doxycycline 100 MG CAP PO SCH ×2 (09:47→20:07)
[2023-03-02] MEDS: Famotidine 20 MG TAB PO SCH ×2 (09:47→20:08)
[2023-03-02] MEDS: Clopidogrel Bisulfate 75 MG TAB PO SCH (09:47)
[2023-03-02] MEDS: Lisinopril 5 MG TAB PO SCH ×2 (09:48→20:07)
[2023-03-02] MEDS: Ranolazine 500 MG ER.TAB PO SCH ×2 (09:48→20:08)
[2023-03-02] MEDS ORDERED: Albuterol 200 PUFF (6.7GM INHALER) INH PRN (10:39)
[2023-03-02] MEDS ORDERED: predniSONE 20 MG TAB PO SCH (10:45)
[2023-03-02] MEDS: HumuLIN 70/30 100 Unit/ ml 10 ml Vial SC SCH ×2 (10:54→21:35)
[2023-03-02] MEDS: Guaifenesin DM 100-10/5 ML UDCUP PO PRN ×2 (11:37→20:15)
[2023-03-02] MEDS: Ipratropium/Albuterol 3 ML NEB NEB SCH ×2 (11:51→19:13)
[2023-03-02] MEDS ORDERED: Iopamidol-370 76% 500 ML MDV (1 ML CHARGE) ONE (15:45)
[2023-03-02] MEDS: HumaLOG 300 UNITS/3 ML VIAL SC PRN (18:12)
[2023-03-02] MEDS: guaiFENesin ER 600 MG TAB PO SCH (20:07)
[2023-03-02] MEDS ORDERED: Atorvastatin Calcium 40 MG TAB PO SCH (21:00)
[2023-03-03] MEDS: Ipratropium/Albuterol 3 ML NEB NEB SCH ×2 (01:06→07:31)
[2023-03-03 05:22] LABS: Anion Gap 14 mmol/L (10-20); BUN (Urea Nitrogen) 13 mg/dL (8.4-25.7); Calc. Creatinine Clearance 161 mL/min (70-130); Calcium 9.6 mg/dL (7.8-10.44); Carbon Dioxide 24 mmol/L (22-29); Chloride 103 mmol/L (98-107); Estimated GFR 100; Glucose 206 mg/dL (70-105); Potassium 3.7 mmol/L (3.5-5.1); Sodium 137 mmol/L (136-145)
[2023-03-03] MEDS: Guaifenesin DM 100-10/5 ML UDCUP PO PRN (06:30)
[2023-03-03] MEDS: HumaLOG 300 UNITS/3 ML VIAL SC PRN (06:31)
[2023-03-03 07:53] VITALS: TEMP 98.2
[2023-03-03] MEDS ORDERED: predniSONE 20 MG TAB PO SCH (08:00)
[2023-03-03] MEDS ORDERED: Fluticasone Propionate Nasal Spray 16 gm Bottle NASAL SCH (09:00)
[2023-03-03] MEDS: cefTRIAXone\\ROCEPHIN 1 GM in Sodium Chloride 0.9% 100 ML IVPB SCH (09:17)
[2023-03-03] MEDS: Carvedilol 6.25 MG TAB PO SCH (09:18)
[2023-03-03] MEDS: Ranolazine 500 MG ER.TAB PO SCH (09:18)
[2023-03-03] MEDS: Clopidogrel Bisulfate 75 MG TAB PO SCH (09:19)
[2023-03-03] MEDS: guaiFENesin ER 600 MG TAB PO SCH (09:19)
[2023-03-03] MEDS: Lisinopril 5 MG TAB PO SCH (09:19)
[2023-03-03] MEDS: Aspirin Chewable 81 MG TAB PO SCH (09:19)
[2023-03-03] MEDS: Famotidine 20 MG TAB PO SCH (09:19)
[2023-03-03] MEDS: Doxycycline 100 MG CAP PO SCH (09:19)
[2023-03-03] MEDS: HumuLIN 70/30 100 Unit/ ml 10 ml Vial SC SCH (09:22)
[2023-03-03 09:49] VITALS: BP 137/67
== END 2023-03-03 11:19 | disposition home or self-care (01) | DRG 178 ==
LOC: ERS 23:16 → 2NO 03-02 02:23
PROVIDERS: ADMIT Student in an Organized Health Care Education/Training Program; ATTEND Student in an Organized Health Care Education/Training Program
DX: J15.69 Pneumonia due to other Gram-negative bacteria (principal); I50.32 Chronic diastolic (congestive) heart failure; J44.0 Chronic obstructive pulmonary disease with (acute) lower respiratory infection; J44.1 Chronic obstructive pulmonary disease with (acute) exacerbation; Z68.41 Body mass index [BMI] 40.0-44.9, adult; E11.9 Type 2 diabetes mellitus without complications; E78.5 Hyperlipidemia, unspecified; I25.10 Atherosclerotic heart disease of native coronary artery without angina pectoris; E66.9 Obesity, unspecified; E87.6 Hypokalemia; E83.42 Hypomagnesemia; M19.90 Unspecified osteoarthritis, unspecified site; F41.9 Anxiety disorder, unspecified; I11.0 Hypertensive heart disease with heart failure; J44.9 Chronic obstructive pulmonary disease, unspecified; I25.2 Old myocardial infarction; Z95.5 Presence of coronary angioplasty implant and graft; Z98.890 Other specified postprocedural states; Z79.51 Long term (current) use of inhaled steroids; Z79.4 Long term (current) use of insulin; Z79.82 Long term (current) use of aspirin; Z86.73 Personal history of transient ischemic attack (TIA), and cerebral infarction without residual deficits; Z79.899 Other long term (current) drug therapy
CPT/HCPCS: 36415; 36416; 71045; 71275; 80048; 80053; 83036; 83605; 83690; 83735; 83880; 84484; 85025; 87040; 93005; 94640; 94760; 96365; 96366; 96368; 96375; 96376; J0696; J1815; J2270; J2543; J2920; J3370-JW; J3490; J7512; J7620

== ENCOUNTER 2023-03-30 16:40 | Observation (INO) | payer OTHER ==
[2023-03-30 17:48] LABS: #Eosinphils 0.3 thou/uL (0.0-0.7); #Monocytes 0.7 thou/uL (0.11-0.59); #Neutrophils 4.3 thou/uL (1.40-6.50); %Basophils 0.4 % (0.0-1.0); %Eosinophils 4.1 % (0.0-10.0); %Lymphocytes 31.3 % (21.0-51.0); %Monocytes 8.7 % (0.0-10.0); %Neutrophils 54.9 % (42.0-75.0); Hematocrit 37.1 % (42.0-52.0); Hemoglobin 12.6 g/dL (14.0-18.0); Mean Corpuscular Volume 91.4 fl (78.0-98.0); Mean Platelet Volume 10.9 fL (7.4-10.4); Platelet Count 151 10x3/uL (130-400); RBC Distribution Width 13.7 % (11.5-14.5); Red Blood Cell (RBC) Count 4.06 mill/uL (4.70-6.10); White Blood Cell (WBC) Count 7.8 10x3/uL (4.8-10.8)
[2023-03-30 18:15] LABS: Troponin I 0.038 ng/mL (< 0.028)
[2023-03-30 18:21] LABS: ALT (SGPT) 15 U/L (8-55); AST (SGOT) 21 U/L (5-34); Albumin 3.6 g/dL (3.5-5.0); Alkaline Phosphatase 76 U/L (40-110); Anion Gap 14 mmol/L (10-20); BUN (Urea Nitrogen) 16 mg/dL (8.4-25.7); Bilirubin, Total 0.4 mg/dL (0.2-1.2); Calc. Creatinine Clearance 0 mL/min (70-130); Calcium 8.6 mg/dL (7.8-10.44); Carbon Dioxide 21 mmol/L (22-29); Chloride 107 mmol/L (98-107); Estimated GFR 87; Globulin 3.1 g/dL (2.4-3.5); Glucose 250 mg/dL (70-105); Lipase 40 U/L (8-78); Potassium 4.2 mmol/L (3.5-5.1); Protein, Total 6.7 g/dL (6.0-8.3); Sodium 138 mmol/L (136-145)
[2023-03-30] MEDS ORDERED: Aspirin 81 mg Enteric Coated Tablet ONE (18:49)
[2023-03-30] MEDS ORDERED: Morphine 4 MG/ML VIAL ONE (19:33)
[2023-03-30 21:28] LABS: Troponin I 0.038 ng/mL (< 0.028)
[2023-03-30 22:11] VITALS: BMI 41.0
[2023-03-30] MEDS ORDERED: Glucagon 1 MG/ML KIT IM PRN (22:21)
[2023-03-30] MEDS ORDERED: HumaLOG 300 UNITS/3 ML VIAL SC PRN ×2 (22:21)
[2023-03-30] MEDS ORDERED: Dextrose 5% in Water 1,000 ML IV PRN (22:21)
[2023-03-30] MEDS ORDERED: Dextrose 50% Abboject 50 ML SYRINGE SLOW IVP PRN (22:21)
[2023-03-30] MEDS ORDERED: Calcium Carbonate 500 MG ChewTAB PO PRN (22:23)
[2023-03-30] MEDS ORDERED: Ondansetron ODT 4 MG TAB PO PRN (22:23)
[2023-03-30] MEDS ORDERED: Senokot S 8.6-50 MG TAB PO PRN (22:23)
[2023-03-30] MEDS ORDERED: Acetaminophen 325 MG TAB PO PRN (22:23)
[2023-03-30] MEDS ORDERED: Albuterol 200 PUFF (6.7GM INHALER) INH PRN (22:25)
[2023-03-30] MEDS ORDERED: Nitroglycerin 0.4 MG TAB (25 Tab Bottle) SL PRN (22:25)
[2023-03-30 23:55] LABS: Troponin I 0.011 ng/mL (< 0.028)
[2023-03-31] MEDS ORDERED: Nitroglycerin 2% Ointment 1 INCH/1 GM Packet TOP SCH (02:15)
[2023-03-31 03:40] LABS: Troponin I 0.015 ng/mL (< 0.028)
[2023-03-31 04:09] LABS: Anion Gap 16 mmol/L (10-20); BUN (Urea Nitrogen) 16 mg/dL (8.4-25.7); Calc. Creatinine Clearance 157 mL/min (70-130); Calcium 8.5 mg/dL (7.8-10.44); Carbon Dioxide 19 mmol/L (22-29); Chloride 108 mmol/L (98-107); Estimated GFR 99; Glucose 258 mg/dL (70-105); Potassium 3.8 mmol/L (3.5-5.1); Sodium 139 mmol/L (136-145)
[2023-03-31] MEDS: Triamterene/Hydrochlorothiazide 37.5 mg/25 mg Tablet PO SCH (08:16)
[2023-03-31] MEDS: Ranolazine 500 MG ER.TAB PO SCH ×2 (08:16→20:01)
[2023-03-31] MEDS: metFORMIN 500 MG TAB PO SCH ×2 (08:16→16:43)
[2023-03-31] MEDS: Aspirin Chewable 81 MG TAB PO SCH (08:17)
[2023-03-31] MEDS: HumuLIN 70/30 (300 UNITS/3 ML VIAL) SC SCH ×3 (08:17→16:44)
[2023-03-31] MEDS: Lisinopril 5 MG TAB PO SCH ×2 (08:17→20:01)
[2023-03-31] MEDS: Apixaban 5 MG TAB PO SCH (08:17)
[2023-03-31] MEDS: Famotidine 20 MG TAB PO SCH ×2 (08:17→20:01)
[2023-03-31] MEDS: Clopidogrel Bisulfate 75 MG TAB PO SCH (08:17)
[2023-03-31] MEDS: Carvedilol 6.25 MG TAB PO SCH ×2 (08:17→16:43)
[2023-03-31] MEDS: Amlodipine 10 MG TAB PO SCH (08:17)
[2023-03-31] MEDS ORDERED: FLU VACC QS2023-24(6MOS UP)/PF 60 MCG/0.5 ML SYRINGE IM ONE (09:00)
[2023-03-31] MEDS ORDERED: Ipratropium/Albuterol 3 ML NEB NEB PRN (11:05)
[2023-03-31] MEDS ORDERED: Furosemide 40 MG/4 ML VIAL SLOW IVP SCH (11:30)
[2023-03-31] MEDS ORDERED: methylPREDNISolone Sod Succ 40 MG VIAL IVP SCH (11:30)
[2023-03-31] MEDS: Ipratropium/Albuterol 3 ML NEB NEB SCH ×2 (13:51→18:49)
[2023-03-31] MEDS ORDERED: Ibuprofen 200 MG TAB PO PRN (16:17)
[2023-03-31] MEDS: Morphine 2 MG/ML VIAL SLOW IVP PRN ×2 (17:15→21:28)
[2023-03-31] MEDS ORDERED: Morphine 2 MG/ML VIAL SLOW IVP SCH (17:15)
[2023-03-31] MEDS: guaiFENesin/DM ER PO SCH (20:01)
[2023-03-31] MEDS ORDERED: Atorvastatin Calcium 40 MG TAB PO SCH (21:00)
[2023-04-01] MEDS: Morphine 2 MG/ML VIAL SLOW IVP PRN ×2 (03:17→08:12)
[2023-04-01] MEDS: Ipratropium/Albuterol 3 ML NEB NEB SCH (07:28)
[2023-04-01 08:03] VITALS: BP 136/70; TEMP 97.9
[2023-04-01] MEDS: Aspirin Chewable 81 MG TAB PO SCH (08:07)
[2023-04-01] MEDS: Carvedilol 6.25 MG TAB PO SCH (08:07)
[2023-04-01] MEDS: Triamterene/Hydrochlorothiazide 37.5 mg/25 mg Tablet PO SCH (08:08)
[2023-04-01] MEDS: Ranolazine 500 MG ER.TAB PO SCH (08:08)
[2023-04-01] MEDS: guaiFENesin/DM ER PO SCH (08:08)
[2023-04-01] MEDS: Amlodipine 10 MG TAB PO SCH (08:08)
[2023-04-01] MEDS: Clopidogrel Bisulfate 75 MG TAB PO SCH (08:09)
[2023-04-01] MEDS: Famotidine 20 MG TAB PO SCH (08:09)
[2023-04-01] MEDS: Lisinopril 5 MG TAB PO SCH (08:09)
[2023-04-01] MEDS: metFORMIN 500 MG TAB PO SCH (08:09)
[2023-04-01] MEDS: HumuLIN 70/30 (300 UNITS/3 ML VIAL) SC SCH (08:10)
[2023-04-01] MEDS: Apixaban 5 MG TAB PO SCH (08:10)
== END 2023-04-01 11:27 | disposition home or self-care (01) ==
LOC: ERS 16:40 → 2SW 19:58
PROVIDERS: ADMIT Student in an Organized Health Care Education/Training Program; ATTEND Internal Medicine
DX: R07.9 Chest pain, unspecified (principal); I25.10 Atherosclerotic heart disease of native coronary artery without angina pectoris; E78.5 Hyperlipidemia, unspecified; G47.33 Obstructive sleep apnea (adult) (pediatric); J44.9 Chronic obstructive pulmonary disease, unspecified; E11.9 Type 2 diabetes mellitus without complications; I10 Essential (primary) hypertension; E66.01 Morbid (severe) obesity due to excess calories; Z68.41 Body mass index [BMI] 40.0-44.9, adult; Z95.1 Presence of aortocoronary bypass graft; Z95.818 Presence of other cardiac implants and grafts; Z79.84 Long term (current) use of oral hypoglycemic drugs; Z79.01 Long term (current) use of anticoagulants; Z79.899 Other long term (current) drug therapy; Z79.82 Long term (current) use of aspirin
CPT/HCPCS: 36415; 36416; 71045; 80048; 80053; 83690; 83880; 84484; 85025; 93005; 94640; 96374; 96375; 96376; G0378; J1815; J1940; J2270; J2272; J2920; J7620

== ENCOUNTER 2023-05-22 15:26 | Inpatient (IN) | payer OTHER, SELFPAY ==
[2023-05-22 15:53] LABS: #Eosinphils 0.4 thou/uL (0.0-0.7); #Monocytes 0.7 thou/uL (0.11-0.59); #Neutrophils 4.4 thou/uL (1.40-6.50); %Basophils 0.5 % (0.0-1.0); %Eosinophils 5.2 % (0.0-10.0); %Lymphocytes 32.1 % (21.0-51.0); %Monocytes 8.3 % (0.0-10.0); %Neutrophils 53.3 % (42.0-75.0); Hematocrit 39.3 % (42.0-52.0); Hemoglobin 13.6 g/dL (14.0-18.0); Mean Corpuscular HGB CONC 34.6 g/dL (32.0-36.0); Mean Corpuscular Hemoglobin 31.7 pg (27.0-31.0); Mean Corpuscular Volume 91.6 fl (78.0-98.0); Mean Platelet Volume 10.9 fL (7.4-10.4); Platelet Count 152 10x3/uL (130-400); RBC Distribution Width 13.7 % (11.5-14.5); Red Blood Cell (RBC) Count 4.29 mill/uL (4.70-6.10); White Blood Cell (WBC) Count 8.2 10x3/uL (4.8-10.8)
[2023-05-22 16:22] LABS: ALT (SGPT) 18 U/L (8-55); AST (SGOT) 15 U/L (5-34); Albumin 3.8 g/dL (3.5-5.0); Alkaline Phosphatase 72 U/L (40-110); Anion Gap 14 mmol/L (10-20); BUN (Urea Nitrogen) 15 mg/dL (8.4-25.7); Bilirubin, Total 0.4 mg/dL (0.2-1.2); Calc. Creatinine Clearance 0 mL/min (70-130); Carbon Dioxide 25 mmol/L (22-29); Chloride 104 mmol/L (98-107); Estimated GFR 82; Globulin 3.1 g/dL (2.4-3.5); Glucose 341 mg/dL (70-105); Protein, Total 6.9 g/dL (6.0-8.3); Sodium 139 mmol/L (136-145)
[2023-05-22 16:24] LABS: Troponin I Less than 0.010 ng/mL (< 0.028)
[2023-05-22] MEDS ORDERED: Nitroglycerin 2% Ointment 1 INCH/1 GM Packet ONE (16:27)
[2023-05-22] MEDS ORDERED: Morphine 4 MG/ML VIAL ONE ×2 (18:23→20:10)
[2023-05-22] MEDS ORDERED: Dextrose 5% in Water 1,000 ML IV PRN (18:43)
[2023-05-22] MEDS ORDERED: Dextrose 50% Abboject 50 ML SYRINGE SLOW IVP PRN (18:43)
[2023-05-22] MEDS ORDERED: Ondansetron PF 4 MG/2 ML Vial IVP PRN (18:43)
[2023-05-22] MEDS ORDERED: Ondansetron ODT 4 MG TAB PO PRN (18:43)
[2023-05-22] MEDS ORDERED: Acetaminophen 325 MG TAB PO PRN (18:43)
[2023-05-22] MEDS ORDERED: Glucagon 1 MG/ML KIT IM PRN (18:43)
[2023-05-22] MEDS ORDERED: Ipratropium/Albuterol 3 ML NEB NEB PRN (18:58)
[2023-05-22 20:36] LABS: Troponin I 0.011 ng/mL (< 0.028)
[2023-05-22 21:30] VITALS: BMI 43.5
[2023-05-22] MEDS: metFORMIN 500 MG TAB PO SCH (21:39)
[2023-05-22] MEDS: Ranolazine 500 MG ER.TAB PO SCH (21:40)
[2023-05-22] MEDS: Atorvastatin Calcium 40 MG TAB PO SCH (21:40)
[2023-05-22] MEDS: Lisinopril 5 MG TAB PO SCH (21:40)
[2023-05-22] MEDS ORDERED: Apixaban 5 MG TAB PO SCH (23:15)
[2023-05-22] MEDS: Nitroglycerin 0.4 MG TAB (25 Tab Bottle) SL PRN ×2 (23:23→23:28)
[2023-05-22 23:34] LABS: Troponin I Less than 0.010 ng/mL (< 0.028)
[2023-05-22] MEDS: Morphine 4 MG/ML VIAL SLOW IVP PRN (23:44)
[2023-05-23 05:57] LABS: #Basophils 0.1 thou/uL (0.0-0.2); #Eosinphils 0.4 thou/uL (0.0-0.7); #Monocytes 0.7 thou/uL (0.11-0.59); #Neutrophils 3.7 thou/uL (1.40-6.50); %Basophils 0.8 % (0.0-1.0); %Eosinophils 5.3 % (0.0-10.0); %Lymphocytes 35.4 % (21.0-51.0); %Monocytes 9.6 % (0.0-10.0); %Neutrophils 48.1 % (42.0-75.0); Hematocrit 38.8 % (42.0-52.0); Hemoglobin 12.6 g/dL (14.0-18.0); Mean Corpuscular HGB CONC 32.5 g/dL (32.0-36.0); Mean Corpuscular Hemoglobin 30.7 pg (27.0-31.0); Mean Platelet Volume 11.2 fL (7.4-10.4); Platelet Count 148 10x3/uL (130-400); RBC Distribution Width 13.8 % (11.5-14.5); White Blood Cell (WBC) Count 7.7 10x3/uL (4.8-10.8)
[2023-05-23] MEDS: Morphine 4 MG/ML VIAL SLOW IVP PRN ×4 (05:58→23:02)
[2023-05-23 06:02] LABS: Mean Corpuscular Volume 94.6 fl (78.0-98.0)
[2023-05-23 06:30] LABS: Anion Gap 10 mmol/L (10-20); BUN (Urea Nitrogen) 14 mg/dL (8.4-25.7); Calc. Creatinine Clearance 176 mL/min (70-130); Calcium 8.4 mg/dL (7.8-10.44); Carbon Dioxide 26 mmol/L (22-29); Cardiac Risk 3.1 (Less than 4.5); Chloride 105 mmol/L (98-107); Cholesterol 118 mg/dl (< 200 Desired); Estimated GFR 101; Glucose 170 mg/dL (70-105); HDL Cholesterol 38 mg/dL (>60 Neg Risk); LDL Cholesterol, Calculated 62 mg/dL; Potassium 3.9 mmol/L (3.5-5.1); Sodium 137 mmol/L (136-145); Triglycerides 91 mg/dL (Less than 150)
[2023-05-23] MEDS: Lisinopril 5 MG TAB PO SCH ×2 (08:14→20:43)
[2023-05-23] MEDS: Aspirin Chewable 81 MG TAB PO SCH (08:14)
[2023-05-23] MEDS: guaiFENesin ER 600 MG TAB PO SCH ×2 (08:14→20:43)
[2023-05-23] MEDS: Triamterene/Hydrochlorothiazide 37.5 mg/25 mg Tablet PO SCH (08:14)
[2023-05-23] MEDS: Ranolazine 500 MG ER.TAB PO SCH ×2 (08:15→20:44)
[2023-05-23] MEDS: metFORMIN 500 MG TAB PO SCH ×2 (08:15→20:43)
[2023-05-23] MEDS: Carvedilol 6.25 MG TAB PO SCH ×2 (08:15→17:57)
[2023-05-23] MEDS: Amlodipine 10 MG TAB PO SCH (08:15)
[2023-05-23] MEDS: Apixaban 5 MG TAB PO SCH ×2 (08:15→20:43)
[2023-05-23] MEDS: Clopidogrel Bisulfate 75 MG TAB PO SCH (08:15)
[2023-05-23] MEDS ORDERED: Aspirin Chewable 81 MG TAB PO SCH (09:00)
[2023-05-23] MEDS ORDERED: Regadenoson 0.4 MG/5 ML SYRINGE ONE (09:13)
[2023-05-23] MEDS: HumaLOG 300 UNITS/3 ML VIAL SC PRN ×3 (13:00→20:46)
[2023-05-23] MEDS: Atorvastatin Calcium 40 MG TAB PO SCH (20:43)
[2023-05-24 05:39] LABS: #Eosinphils 0.4 thou/uL (0.0-0.7); #Monocytes 0.7 thou/uL (0.11-0.59); #Neutrophils 4.2 thou/uL (1.40-6.50); %Basophils 0.5 % (0.0-1.0); %Eosinophils 5.5 % (0.0-10.0); %Lymphocytes 30.5 % (21.0-51.0); %Monocytes 8.5 % (0.0-10.0); %Neutrophils 54.4 % (42.0-75.0); Hemoglobin 13.6 g/dL (14.0-18.0); Mean Corpuscular HGB CONC 33.2 g/dL (32.0-36.0); Mean Corpuscular Hemoglobin 30.7 pg (27.0-31.0); Mean Corpuscular Volume 92.6 fl (78.0-98.0); Platelet Count 157 10x3/uL (130-400); RBC Distribution Width 13.5 % (11.5-14.5); Red Blood Cell (RBC) Count 4.43 mill/uL (4.70-6.10); White Blood Cell (WBC) Count 7.8 10x3/uL (4.8-10.8)
[2023-05-24] MEDS: Morphine 4 MG/ML VIAL SLOW IVP PRN ×4 (05:45→20:40)
[2023-05-24] MEDS: HumaLOG 300 UNITS/3 ML VIAL SC PRN ×4 (06:06→21:31)
[2023-05-24 06:25] LABS: Anion Gap 12 mmol/L (10-20); BUN (Urea Nitrogen) 13 mg/dL (8.4-25.7); Calc. Creatinine Clearance 170 mL/min (70-130); Calcium 8.7 mg/dL (7.8-10.44); Carbon Dioxide 26 mmol/L (22-29); Chloride 100 mmol/L (98-107); Estimated GFR 100; Glucose 215 mg/dL (70-105); Potassium 4.4 mmol/L (3.5-5.1); Sodium 134 mmol/L (136-145)
[2023-05-24] MEDS: Carvedilol 6.25 MG TAB PO SCH ×2 (09:56→17:28)
[2023-05-24] MEDS: Triamterene/Hydrochlorothiazide 37.5 mg/25 mg Tablet PO SCH (09:56)
[2023-05-24] MEDS: Clopidogrel Bisulfate 75 MG TAB PO SCH (09:57)
[2023-05-24] MEDS: guaiFENesin ER 600 MG TAB PO SCH ×2 (09:57→20:40)
[2023-05-24] MEDS: Ranolazine 500 MG ER.TAB PO SCH ×2 (09:57→20:40)
[2023-05-24] MEDS: Amlodipine 10 MG TAB PO SCH (09:57)
[2023-05-24] MEDS: Apixaban 5 MG TAB PO SCH (09:57)
[2023-05-24] MEDS: Lisinopril 5 MG TAB PO SCH ×2 (09:58→20:40)
[2023-05-24] MEDS: metFORMIN 500 MG TAB PO SCH (09:58)
[2023-05-24] MEDS: Aspirin Chewable 81 MG TAB PO SCH (09:58)
[2023-05-24] MEDS ORDERED: CATH FS PRN (14:30)
[2023-05-24] MEDS: Atorvastatin Calcium 40 MG TAB PO SCH (20:40)
[2023-05-24] MEDS: Enoxaparin 100 MG (1 mL) SYRINGE SC SCH (20:41)
[2023-05-24] MEDS: Enoxaparin 30 MG (0.3 mL) SYRINGE SC SCH (20:41)
[2023-05-25] MEDS: Morphine 4 MG/ML VIAL SLOW IVP PRN ×5 (04:24→21:26)
[2023-05-25 05:38] LABS: #Eosinphils 0.4 thou/uL (0.0-0.7); #Monocytes 0.6 thou/uL (0.11-0.59); #Neutrophils 3.6 thou/uL (1.40-6.50); %Basophils 0.6 % (0.0-1.0); %Eosinophils 6.1 % (0.0-10.0); %Lymphocytes 33.2 % (21.0-51.0); %Monocytes 9.1 % (0.0-10.0); %Neutrophils 50.4 % (42.0-75.0); Hematocrit 38.7 % (42.0-52.0); Hemoglobin 13.2 g/dL (14.0-18.0); Mean Corpuscular HGB CONC 34.1 g/dL (32.0-36.0); Mean Corpuscular Hemoglobin 31.5 pg (27.0-31.0); Mean Corpuscular Volume 92.4 fl (78.0-98.0); Mean Platelet Volume 10.9 fL (7.4-10.4); Platelet Count 149 10x3/uL (130-400); RBC Distribution Width 13.3 % (11.5-14.5); Red Blood Cell (RBC) Count 4.19 mill/uL (4.70-6.10); White Blood Cell (WBC) Count 7.1 10x3/uL (4.8-10.8)
[2023-05-25 06:01] LABS: Anion Gap 8 mmol/L (10-20); BUN (Urea Nitrogen) 14 mg/dL (8.4-25.7); Calc. Creatinine Clearance 159 mL/min (70-130); Carbon Dioxide 30 mmol/L (22-29); Chloride 99 mmol/L (98-107); Estimated GFR 95; Glucose 224 mg/dL (70-105); Potassium 4.4 mmol/L (3.5-5.1); Sodium 133 mmol/L (136-145)
[2023-05-25] MEDS: HumaLOG 300 UNITS/3 ML VIAL SC PRN ×4 (06:05→21:28)
[2023-05-25] MEDS: Amlodipine 10 MG TAB PO SCH (08:18)
[2023-05-25] MEDS: Carvedilol 6.25 MG TAB PO SCH ×2 (08:18→17:26)
[2023-05-25] MEDS: Clopidogrel Bisulfate 75 MG TAB PO SCH (08:18)
[2023-05-25] MEDS: Aspirin Chewable 81 MG TAB PO SCH (08:18)
[2023-05-25] MEDS: guaiFENesin ER 600 MG TAB PO SCH ×2 (08:19→20:23)
[2023-05-25] MEDS: Lisinopril 5 MG TAB PO SCH ×2 (08:19→20:24)
[2023-05-25] MEDS: Ranolazine 500 MG ER.TAB PO SCH ×2 (08:19→20:24)
[2023-05-25] MEDS: Triamterene/Hydrochlorothiazide 37.5 mg/25 mg Tablet PO SCH (08:19)
[2023-05-25] MEDS: Enoxaparin 30 MG (0.3 mL) SYRINGE SC SCH ×2 (08:19→20:23)
[2023-05-25] MEDS: Enoxaparin 100 MG (1 mL) SYRINGE SC SCH ×2 (08:19→20:23)
[2023-05-25] MEDS ORDERED: Gabapentin 100 MG CAP PO SCH (10:00)
[2023-05-25] MEDS: Atorvastatin Calcium 40 MG TAB PO SCH (20:23)
[2023-05-26] MEDS: Morphine 4 MG/ML VIAL SLOW IVP PRN ×5 (02:24→20:12)
[2023-05-26] MEDS: HumaLOG 300 UNITS/3 ML VIAL SC PRN ×4 (06:31→20:48)
[2023-05-26 06:34] LABS: #Eosinphils 0.4 thou/uL (0.0-0.7); #Monocytes 0.6 thou/uL (0.11-0.59); #Neutrophils 3.5 thou/uL (1.40-6.50); %Basophils 0.5 % (0.0-1.0); %Eosinophils 5.6 % (0.0-10.0); %Lymphocytes 27.1 % (21.0-51.0); %Monocytes 9.3 % (0.0-10.0); %Neutrophils 56.9 % (42.0-75.0); Hematocrit 41.4 % (42.0-52.0); Hemoglobin 14.1 g/dL (14.0-18.0); Mean Corpuscular HGB CONC 34.1 g/dL (32.0-36.0); Mean Corpuscular Hemoglobin 31.3 pg (27.0-31.0); Mean Platelet Volume 10.9 fL (7.4-10.4); Platelet Count 169 10x3/uL (130-400); RBC Distribution Width 13.2 % (11.5-14.5); White Blood Cell (WBC) Count 6.2 10x3/uL (4.8-10.8)
[2023-05-26 06:59] LABS: Anion Gap 12 mmol/L (10-20); BUN (Urea Nitrogen) 16 mg/dL (8.4-25.7); Calc. Creatinine Clearance 150 mL/min (70-130); Calcium 9.4 mg/dL (7.8-10.44); Carbon Dioxide 25 mmol/L (22-29); Chloride 96 mmol/L (98-107); Estimated GFR 90; Glucose 303 mg/dL (70-105); Potassium 4.5 mmol/L (3.5-5.1); Sodium 128 mmol/L (136-145)
[2023-05-26] MEDS: Carvedilol 6.25 MG TAB PO SCH ×2 (08:36→16:54)
[2023-05-26] MEDS: Enoxaparin 100 MG (1 mL) SYRINGE SC SCH ×2 (08:37→20:11)
[2023-05-26] MEDS: Amlodipine 10 MG TAB PO SCH (08:37)
[2023-05-26] MEDS: Clopidogrel Bisulfate 75 MG TAB PO SCH (08:37)
[2023-05-26] MEDS: Aspirin Chewable 81 MG TAB PO SCH (08:37)
[2023-05-26] MEDS: Enoxaparin 30 MG (0.3 mL) SYRINGE SC SCH ×2 (08:38→20:12)
[2023-05-26] MEDS: Gabapentin 100 MG CAP PO SCH (08:38)
[2023-05-26] MEDS: guaiFENesin ER 600 MG TAB PO SCH ×2 (08:40→20:11)
[2023-05-26] MEDS: Ranolazine 500 MG ER.TAB PO SCH ×2 (08:41→20:11)
[2023-05-26] MEDS ORDERED: Lisinopril 10 MG TAB PO SCH (09:00)
[2023-05-26] MEDS ORDERED: Dextrose 5% in Water 1,000 ML IV PRN (10:11)
[2023-05-26] MEDS ORDERED: Dextrose 50% Abboject 50 ML SYRINGE SLOW IVP PRN (10:11)
[2023-05-26] MEDS ORDERED: Glucagon 1 MG/ML KIT IM PRN (10:11)
[2023-05-26 19:39] LABS: Anion Gap 12 mmol/L (10-20); BUN (Urea Nitrogen) 19 mg/dL (8.4-25.7); Calc. Creatinine Clearance 130 mL/min (70-130); Calcium 9.3 mg/dL (7.8-10.44); Carbon Dioxide 27 mmol/L (22-29); Chloride 97 mmol/L (98-107); Estimated GFR 76; Glucose 262 mg/dL (70-105); Potassium 4.8 mmol/L (3.5-5.1); Sodium 131 mmol/L (136-145)
[2023-05-26] MEDS: Atorvastatin Calcium 40 MG TAB PO SCH (20:11)
[2023-05-27] MEDS: Morphine 4 MG/ML VIAL SLOW IVP PRN ×3 (00:10→10:24)
[2023-05-27] MEDS ORDERED: Sodium Chloride 0.9% 500 ML IV SCH ×2 (01:00→09:15)
[2023-05-27] MEDS: Carvedilol 6.25 MG TAB PO SCH (05:40)
[2023-05-27] MEDS: Ranolazine 500 MG ER.TAB PO SCH (05:40)
[2023-05-27] MEDS: guaiFENesin ER 600 MG TAB PO SCH (05:41)
[2023-05-27] MEDS: Gabapentin 100 MG CAP PO SCH (05:41)
[2023-05-27] MEDS: Aspirin Chewable 81 MG TAB PO SCH (05:41)
[2023-05-27] MEDS: Clopidogrel Bisulfate 75 MG TAB PO SCH (05:41)
[2023-05-27] MEDS: Amlodipine 10 MG TAB PO SCH (05:41)
[2023-05-27 06:51] LABS: #Basophils 0.1 thou/uL (0.0-0.2); #Eosinphils 0.4 thou/uL (0.0-0.7); #Monocytes 0.7 thou/uL (0.11-0.59); %Basophils 0.8 % (0.0-1.0); %Eosinophils 7.1 % (0.0-10.0); %Lymphocytes 31.2 % (21.0-51.0); %Monocytes 11.1 % (0.0-10.0); %Neutrophils 49.1 % (42.0-75.0); Hemoglobin 13.2 g/dL (14.0-18.0); Mean Corpuscular HGB CONC 33.8 g/dL (32.0-36.0); Mean Corpuscular Hemoglobin 30.8 pg (27.0-31.0); Mean Corpuscular Volume 91.1 fl (78.0-98.0); Mean Platelet Volume 11.1 fL (7.4-10.4); Platelet Count 149 10x3/uL (130-400); RBC Distribution Width 13.2 % (11.5-14.5); Red Blood Cell (RBC) Count 4.28 mill/uL (4.70-6.10); White Blood Cell (WBC) Count 6.1 10x3/uL (4.8-10.8)
[2023-05-27] MEDS ORDERED: Lidocaine 1% (PF) 30 ML VIAL ONE (07:14)
[2023-05-27] MEDS ORDERED: Heparin 10,000 UNITS/ 10 ML VIAL ONE (07:14)
[2023-05-27 07:21] LABS: Anion Gap 10 mmol/L (10-20); BUN (Urea Nitrogen) 18 mg/dL (8.4-25.7); Calc. Creatinine Clearance 136 mL/min (70-130); Calcium 8.8 mg/dL (7.8-10.44); Carbon Dioxide 25 mmol/L (22-29); Chloride 100 mmol/L (98-107); Estimated GFR 80; Glucose 320 mg/dL (70-105); Potassium 4.3 mmol/L (3.5-5.1); Sodium 131 mmol/L (136-145)
[2023-05-27] MEDS ORDERED: Verapamil 5 MG/2 ML VIAL ONE (07:27)
[2023-05-27] MEDS ORDERED: Nitroglycerin 50 MG/250 ML BOT 250 ML ONE (07:27)
[2023-05-27] MEDS ORDERED: Midazolam HCl 2 mg/2 ml Vial ONE (08:10)
[2023-05-27] MEDS ORDERED: fentaNYL 50 mcg/mL 1 mL Vial ONE (08:10)
[2023-05-27] MEDS ORDERED: Sodium Chloride 0.9% 200 ML IV PRN (09:02)
[2023-05-27] MEDS ORDERED: Acetaminophen/Codeine 30-300mg Tablet PO PRN (09:02)
[2023-05-27 12:41] VITALS: BP 144/81; TEMP 98.7
[2023-05-28] MEDS ORDERED: Isosorbide Mononitrate 30 MG ER.TAB PO SCH (09:00)
== END 2023-05-27 12:40 | disposition home or self-care (01) | DRG 287 ==
LOC: ERS 15:26 → 2SW 18:25 → OBSVTOIN 05-23 14:28
PROVIDERS: ADMIT Hospitalist; ATTEND Internal Medicine
PROC: 4A023N7 Measurement of Cardiac Sampling and Pressure, Left Heart, Percutaneous Approach (ICD-10-PCS; principal; 2023-05-27)
PROC: B2111ZZ Fluoroscopy of Multiple Coronary Arteries using Low Osmolar Contrast (ICD-10-PCS; 2023-05-27)
DX: R07.89 Other chest pain (principal); E87.1 Hypo-osmolality and hyponatremia; I50.32 Chronic diastolic (congestive) heart failure; Z68.41 Body mass index [BMI] 40.0-44.9, adult; E11.65 Type 2 diabetes mellitus with hyperglycemia; E78.5 Hyperlipidemia, unspecified; J44.9 Chronic obstructive pulmonary disease, unspecified; F41.9 Anxiety disorder, unspecified; K74.60 Unspecified cirrhosis of liver; E11.42 Type 2 diabetes mellitus with diabetic polyneuropathy; E66.01 Morbid (severe) obesity due to excess calories; I25.118 Atherosclerotic heart disease of native coronary artery with other forms of angina pectoris; G47.33 Obstructive sleep apnea (adult) (pediatric); Z79.51 Long term (current) use of inhaled steroids; Z86.73 Personal history of transient ischemic attack (TIA), and cerebral infarction without residual deficits; I25.2 Old myocardial infarction; Z95.5 Presence of coronary angioplasty implant and graft; Z98.890 Other specified postprocedural states; Z79.899 Other long term (current) drug therapy; Z79.82 Long term (current) use of aspirin; Z79.4 Long term (current) use of insulin
CPT/HCPCS: 36415; 36416; 71045; 78452; 80048; 80053; 80061; 83880; 83930; 83935; 84484; 85025; 93005; 93017; 93306; 93454; 96374; 96376; 99152; A9502; C1769; C1894; G0378; J1644; J1650; J1815; J2001; J2250; J2270; J2785; J3010; J7030; Q0162

== ENCOUNTER 2023-10-16 23:41 | Inpatient (IN) | payer OTHER, SELFPAY ==
[2023-10-17 00:20] LABS: #Basophils 0.03 10x3/uL (0.0-0.2); %Basophils 0.4 % (0.0-1.0); %Eosinophils 4.4 % (0.0-10.0); %Lymphocytes 29.4 % (21.0-51.0); %Monocytes 9.7 % (0.0-10.0); %Neutrophils 55.5 % (42.0-75.0); Hematocrit 43.4 % (42.0-52.0); Hemoglobin 14.7 g/dL (14.0-18.0); Mean Corpuscular HGB CONC 33.9 g/dL (32.0-36.0); Mean Corpuscular Hemoglobin 31.5 pg (27.0-31.0); Mean Corpuscular Volume 92.9 fL (78.0-98.0); Mean Platelet Volume 11.2 fL (7.4-10.4); Platelet Count 184 10x3/uL (130-400); Red Blood Cell (RBC) Count 4.67 mill/uL (4.70-6.10)
[2023-10-17 00:42] LABS: Troponin I 0.026 ng/mL (< 0.028)
[2023-10-17 00:59] LABS: ALT (SGPT) 21 U/L (8-55); AST (SGOT) 23 U/L (5-34); Albumin 3.5 g/dL (3.5-5.0); Alkaline Phosphatase 87 U/L (40-110); Anion Gap 15 mmol/L (10-20); BUN (Urea Nitrogen) 15 mg/dL (8.4-25.7); Bilirubin, Total 0.4 mg/dL (0.2-1.2); Calc. Creatinine Clearance 0 mL/min (70-130); Calcium 9.1 mg/dL (7.8-10.44); Carbon Dioxide 20 mmol/L (22-29); Chloride 101 mmol/L (98-107); Estimated GFR 71; Globulin 3.5 g/dL (2.4-3.5); Glucose 672 mg/dL (70-105); Potassium 4.2 mmol/L (3.5-5.1); Sodium 132 mmol/L (136-145)
[2023-10-17 02:10] LABS: Bacteria/HPF None Seen HPF (None Seen); Bilirubin Negative (Negative); Blood, Urine Negative (Negative); CAUTI Indications for Culture Dysuria,urgency,freq; Clarity Clear (Clear); Glucose, Urine (Dipstick) Greater than 1000 mg/dL (Negative); Ketone, Urine Negative (Negative); Leukocyte 250 Leu/uL (Negative); Nitrite Negative (Negative); Protein, Urine (Dipstick) Negative (Neg-Trace); Specific Gravity, Urine 1.036 (1.002-1.036); Squamous Epithelial 0-3 HPF (0-3); Urobilinogen Normal mg/dL (Less than 2)
[2023-10-17 02:13] LABS: Urine Culture Reflex No No
[2023-10-17] MEDS ORDERED: Insulin Regular, Human 100 UNIT/ML 10 ML VIAL ONE (02:46)
[2023-10-17] MEDS ORDERED: Aspirin Chewable 81 MG TAB ONE (03:23)
[2023-10-17] MEDS ORDERED: Nitroglycerin 2% Ointment 1 INCH/1 GM Packet ONE (03:23)
[2023-10-17] MEDS ORDERED: Nitroglycerin 0.4 MG TAB (25 Tab Bottle) SL PRN (03:46)
[2023-10-17] MEDS ORDERED: Ipratropium/Albuterol 3 ML NEB NEB PRN (03:46)
[2023-10-17] MEDS ORDERED: Acetaminophen 325 MG TAB PO PRN (03:49)
[2023-10-17] MEDS ORDERED: Dextrose 5% in Water 1,000 ML IV PRN (03:49)
[2023-10-17] MEDS ORDERED: Ondansetron PF 4 MG/2 ML Vial IVP PRN (03:49)
[2023-10-17] MEDS ORDERED: Glucagon 1 MG/ML KIT IM PRN (03:49)
[2023-10-17] MEDS ORDERED: Morphine 4 MG/ML VIAL ONE (03:49)
[2023-10-17] MEDS ORDERED: Dextrose 50% Abboject 50 ML SYRINGE SLOW IVP PRN (03:49)
[2023-10-17] MEDS ORDERED: HumaLOG 300 UNITS/3 ML VIAL SC PRN (03:49)
[2023-10-17 05:55] LABS: Troponin I 0.013 ng/mL (< 0.028)
[2023-10-17] MEDS ORDERED: HumuLIN 70/30 (300 UNITS/3 ML VIAL) SC SCH (09:00)
[2023-10-17] MEDS: Amlodipine 10 MG TAB PO SCH (09:15)
[2023-10-17] MEDS: Aspirin Chewable 81 MG TAB PO SCH (09:16)
[2023-10-17] MEDS: Gabapentin 100 MG CAP PO SCH (09:16)
[2023-10-17] MEDS: metFORMIN 500 MG TAB PO SCH (09:17)
[2023-10-17] MEDS: Lisinopril 10 MG TAB PO SCH (09:17)
[2023-10-17] MEDS: Carvedilol 6.25 MG TAB PO SCH (09:17)
[2023-10-17] MEDS: Isosorbide Mononitrate 30 MG ER.TAB PO SCH (09:17)
[2023-10-17] MEDS: Ranolazine ER 500 MG TAB PO SCH (09:17)
[2023-10-17] MEDS: Fluticasone Propionate Nasal Spray 16 gm Bottle NASAL SCH (09:18)
[2023-10-17] MEDS: HYDROcodone/Acetaminophen 5/325 mg Tablet PO PRN (09:23)
[2023-10-17] MEDS: HumuLIN 70/30 (300 UNITS/3 ML VIAL) SC SCH ×2 (10:35→18:01)
[2023-10-17] MEDS: Enoxaparin 120 MG/0.8 ML SYRINGE SC SCH (10:48)
[2023-10-17 11:35] LABS: Troponin I 0.019 ng/mL (< 0.028)
[2023-10-17] MEDS: HumaLOG 300 UNITS/3 ML VIAL SC PRN (13:41)
[2023-10-17] MEDS: Sodium Chloride 0.9% 1,000 ML IV SCH (16:52)
[2023-10-17 17:29] VITALS: BMI 41.9
[2023-10-17] MEDS: HumuLIN 70/30 100 Unit/ml 10 ml Vial SC SCH (18:44)
[2023-10-17] MEDS: Atorvastatin Calcium 40 MG TAB PO SCH (19:50)
[2023-10-17] MEDS: Apixaban 5 MG TAB PO SCH (19:51)
[2023-10-17] MEDS: Insulin Glargine 30 UNITS/0.3 ML VIAL SC SCH (19:52)
[2023-10-17] MEDS: Morphine 2 MG/ML VIAL SLOW IVP PRN (19:53)
[2023-10-18 05:52] LABS: #Basophils 0.04 10x3/uL (0.0-0.2); %Basophils 0.5 % (0.0-1.0); %Eosinophils 4.5 % (0.0-10.0); %Lymphocytes 28.1 % (21.0-51.0); %Monocytes 10.1 % (0.0-10.0); %Neutrophils 55.8 % (42.0-75.0); Hematocrit 40.5 % (42.0-52.0); Hemoglobin 13.4 g/dL (14.0-18.0); Mean Corpuscular HGB CONC 33.1 g/dL (32.0-36.0); Mean Corpuscular Hemoglobin 30.6 pg (27.0-31.0); Mean Corpuscular Volume 92.5 fL (78.0-98.0); Mean Platelet Volume 11.4 fL (7.4-10.4); Platelet Count 163 10x3/uL (130-400); RBC Distribution Width 13.2 % (11.5-14.5); Red Blood Cell (RBC) Count 4.38 mill/uL (4.70-6.10)
[2023-10-18 06:04] LABS: Anion Gap 15 mmol/L (10-20); BUN (Urea Nitrogen) 18 mg/dL (8.4-25.7); Calc. Creatinine Clearance 148 mL/min (70-130); Calcium 8.8 mg/dL (7.8-10.44); Carbon Dioxide 21 mmol/L (22-29); Chloride 104 mmol/L (98-107); Estimated GFR 92; Glucose 151 mg/dL (70-105); Sodium 136 mmol/L (136-145)
[2023-10-18] MEDS: Clopidogrel Bisulfate 75 MG TAB PO SCH (09:30)
[2023-10-18] MEDS: HumuLIN 70/30 100 Unit/ml 10 ml Vial SC SCH (09:33)
[2023-10-19 08:38] VITALS: BP 140/69; TEMP 98.1
== END 2023-10-19 11:15 | disposition home or self-care (01) | DRG 638 ==
LOC: ERS 23:41 → 2SW 10-17 03:58 → OBSVTOIN 10-17 15:11 → 2SW 10-18 08:37
PROVIDERS: ADMIT Internal Medicine; ATTEND Internal Medicine
DX: E11.65 Type 2 diabetes mellitus with hyperglycemia (principal); I50.32 Chronic diastolic (congestive) heart failure; Z68.41 Body mass index [BMI] 40.0-44.9, adult; R07.89 Other chest pain; J44.9 Chronic obstructive pulmonary disease, unspecified; E78.5 Hyperlipidemia, unspecified; I11.0 Hypertensive heart disease with heart failure; Z79.82 Long term (current) use of aspirin; Z79.899 Other long term (current) drug therapy; Z79.4 Long term (current) use of insulin; I25.10 Atherosclerotic heart disease of native coronary artery without angina pectoris; Z98.890 Other specified postprocedural states; F41.9 Anxiety disorder, unspecified; I25.2 Old myocardial infarction; E66.01 Morbid (severe) obesity due to excess calories
CPT/HCPCS: 36415; 36416; 70551; 71045; 80048; 80053; 81001; 82010; 83690; 83880; 83930; 84484; 85025; 85379; 93005; 93880; 96374; 96375; J1650; J1815; J2270; J2272; J7050

== ENCOUNTER 2024-01-24 19:39 | Inpatient (IN) | payer OTHER ==
[2024-01-24 22:38] LABS: #Basophils 0.04 10x3/uL (0.0-0.2); %Basophils 0.4 % (0.0-1.0); %Eosinophils 2.9 % (0.0-10.0); %Monocytes 11.7 % (0.0-10.0); %Neutrophils 61.5 % (42.0-75.0); Hematocrit 38.8 % (42.0-52.0); Hemoglobin 13.1 g/dL (14.0-18.0); Mean Corpuscular HGB CONC 33.8 g/dL (32.0-36.0); Mean Corpuscular Volume 91.9 fL (78.0-98.0); Mean Platelet Volume 11.3 fL (7.4-10.4); Platelet Count 177 10x3/uL (130-400); RBC Distribution Width 12.9 % (11.5-14.5); Red Blood Cell (RBC) Count 4.22 mill/uL (4.70-6.10)
[2024-01-24] MEDS ORDERED: Sodium Chloride 0.9% 100 ML ONE (22:40)
[2024-01-24] MEDS ORDERED: Morphine 4 MG/ML VIAL ONE (22:40)
[2024-01-24] MEDS ORDERED: Cefepime 2 GM VIAL ONE (22:40)
[2024-01-24 22:43] LABS: ALT (SGPT) 11 U/L (8-55); AST (SGOT) 11 U/L (5-34); Albumin 3.2 g/dL (3.5-5.0); Alkaline Phosphatase 56 U/L (40-110); Anion Gap 13 mmol/L (10-20); BUN (Urea Nitrogen) 11 mg/dL (8.4-25.7); Bilirubin, Total 0.7 mg/dL (0.2-1.2); Calc. Creatinine Clearance 0 mL/min (70-130); Carbon Dioxide 27 mmol/L (22-29); Chloride 103 mmol/L (98-107); Estimated GFR 102; Globulin 3.5 g/dL (2.4-3.5); Glucose 100 mg/dL (70-105); Potassium 3.9 mmol/L (3.5-5.1); Protein, Total 6.7 g/dL (6.0-8.3); Sodium 139 mmol/L (136-145)
[2024-01-24] MEDS ORDERED: Vancomycin (BATCH) 2 GM/500 ML BAG ONE (23:56)
[2024-01-25 00:21] LABS: Bilirubin Negative (Negative); Blood, Urine Negative (Negative); CAUTI Indications for Culture Dysuria,urgency,freq; Clarity Clear (Clear); Glucose, Urine (Dipstick) Normal (Negative); Ketone, Urine Negative (Negative); Leukocyte 25 Leu/uL (Negative); Mucous/LPF Rare LPF (<2+); Nitrite Negative (Negative); Protein, Urine (Dipstick) 20 mg/dL (Neg-Trace); RBC/HPF 0-3 HPF (0-3); Specific Gravity, Urine 1.029 (1.002-1.036); Squamous Epithelial 0-3 HPF (0-3); pH, Urine 5.5 (5.0-9.0)
[2024-01-25 00:23] LABS: Bacteria/HPF 1+ HPF (None Seen)
[2024-01-25 00:24] LABS: Urine Culture Reflex Yes Yes
[2024-01-25] MEDS ORDERED: Acetaminophen 325 MG TAB PO PRN (01:33)
[2024-01-25] MEDS ORDERED: Ondansetron ODT 4 MG TAB PO PRN (01:33)
[2024-01-25] MEDS ORDERED: Ondansetron PF 4 MG/2 ML Vial IVP PRN (01:33)
[2024-01-25] MEDS ORDERED: Insulin Lispro 100 UNIT/ML 10 ML VIAL SC PRN (01:37)
[2024-01-25] MEDS ORDERED: Glucagon 1 MG/ML KIT IM PRN (01:37)
[2024-01-25] MEDS ORDERED: Dextrose 50% Abboject 50 ML SYRINGE SLOW IVP PRN (01:37)
[2024-01-25] MEDS ORDERED: Dextrose 5% in Water 1,000 ML IV PRN (01:37)
[2024-01-25 03:46] VITALS: BMI 46.3
[2024-01-25] MEDS: traMADol HCl 50 MG TAB PO PRN (04:17)
[2024-01-25] MEDS: cefTRIAXone\\ROCEPHIN 1 GM in Sodium Chloride 0.9% 100 ML IVPB SCH (04:21)
[2024-01-25] MEDS: Ketorolac Tromethamine 30 MG (1 mL) VIAL IVP SCH (04:38)
[2024-01-25 06:02] LABS: #Basophils Less than 0.03 10x3/uL (0.0-0.2); %Basophils 0.2 % (0.0-1.0); %Eosinophils 3.2 % (0.0-10.0); %Lymphocytes 21.6 % (21.0-51.0); %Monocytes 12.5 % (0.0-10.0); %Neutrophils 61.9 % (42.0-75.0); Hematocrit 35.2 % (42.0-52.0); Hemoglobin 11.6 g/dL (14.0-18.0); Mean Corpuscular Hemoglobin 31.4 pg (27.0-31.0); Mean Corpuscular Volume 95.1 fL (78.0-98.0); Mean Platelet Volume 11.1 fL (7.4-10.4); Platelet Count 161 10x3/uL (130-400); RBC Distribution Width 12.9 % (11.5-14.5)
[2024-01-25 06:29] LABS: ALT (SGPT) 10 U/L (8-55); AST (SGOT) 10 U/L (5-34); Albumin 2.9 g/dL (3.5-5.0); Alkaline Phosphatase 50 U/L (40-110); Anion Gap 11 mmol/L (10-20); BUN (Urea Nitrogen) 11 mg/dL (8.4-25.7); Bilirubin, Total 0.6 mg/dL (0.2-1.2); Calc. Creatinine Clearance 205 mL/min (70-130); Calcium 8.3 mg/dL (7.8-10.44); Carbon Dioxide 24 mmol/L (22-29); Chloride 108 mmol/L (98-107); Estimated GFR 104; Globulin 3.3 g/dL (2.4-3.5); Glucose 159 mg/dL (70-105); Potassium 3.6 mmol/L (3.5-5.1); Protein, Total 6.2 g/dL (6.0-8.3); Sodium 139 mmol/L (136-145)
[2024-01-25] MEDS: Amlodipine 10 MG TAB PO SCH (07:58)
[2024-01-25] MEDS: Aspirin Chewable 81 MG TAB PO SCH (07:58)
[2024-01-25] MEDS: Clopidogrel Bisulfate 75 MG TAB PO SCH (07:58)
[2024-01-25] MEDS: Ranolazine ER 500 MG TAB PO SCH (07:58)
[2024-01-25] MEDS: Carvedilol 6.25 MG TAB PO SCH (07:58)
[2024-01-25] MEDS: Gabapentin 100 MG CAP PO SCH (07:59)
[2024-01-25] MEDS: Enoxaparin 40 MG (0.4 mL) SYRINGE SC SCH (07:59)
[2024-01-25] MEDS: Famotidine 20 MG TAB PO SCH (07:59)
[2024-01-25] MEDS: Lisinopril 5 MG TAB PO SCH (07:59)
[2024-01-25] MEDS: Isosorbide Mononitrate 30 MG ER.TAB PO SCH (07:59)
[2024-01-25] MEDS: Insulin Glargine 30 UNITS/0.3 ML VIAL SC SCH (07:59)
[2024-01-25] MEDS: Vancomycin (BATCH) 1.5 GM in Premix 1 BAG IVPB SCH (08:00)
[2024-01-25] MEDS ORDERED: Vancomycin 1 GM in Premix 1 BAG IVPB SCH (09:00)
[2024-01-25] MEDS: oxyCODONE 5 MG TAB PO SCH (09:24)
[2024-01-25] MEDS: Insulin Lispro 100 UNIT/ML 10 ML VIAL SC PRN (12:42)
[2024-01-25] MEDS: Senokot S 8.6-50 MG TAB PO SCH (21:23)
[2024-01-25] MEDS: Atorvastatin Calcium 40 MG TAB PO SCH (21:23)
[2024-01-26 06:28] LABS: #Basophils 0.04 10x3/uL (0.0-0.2); %Basophils 0.5 % (0.0-1.0); %Eosinophils 4.5 % (0.0-10.0); %Lymphocytes 25.8 % (21.0-51.0); %Monocytes 12.4 % (0.0-10.0); %Neutrophils 56.1 % (42.0-75.0); Hematocrit 38.3 % (42.0-52.0); Hemoglobin 12.3 g/dL (14.0-18.0); Mean Corpuscular HGB CONC 32.1 g/dL (32.0-36.0); Mean Corpuscular Hemoglobin 31.1 pg (27.0-31.0); Mean Corpuscular Volume 96.7 fL (78.0-98.0); Mean Platelet Volume 10.9 fL (7.4-10.4); Platelet Count 166 10x3/uL (130-400); RBC Distribution Width 12.9 % (11.5-14.5); Red Blood Cell (RBC) Count 3.96 mill/uL (4.70-6.10)
[2024-01-26 06:35] LABS: Anion Gap 13 mmol/L (10-20); BUN (Urea Nitrogen) 13 mg/dL (8.4-25.7); Calc. Creatinine Clearance 175 mL/min (70-130); Calcium 8.5 mg/dL (7.8-10.44); Carbon Dioxide 26 mmol/L (22-29); Chloride 109 mmol/L (98-107); Estimated GFR 99; Glucose 96 mg/dL (70-105); Potassium 4.3 mmol/L (3.5-5.1); Sodium 144 mmol/L (136-145)
[2024-01-26 06:37] LABS: Vancomycin, Random 11.5 ug/mL (See Comment)
[2024-01-26] MEDS ORDERED: Senokot S 8.6-50 MG TAB PO PRN (15:36)
[2024-01-27 06:14] LABS: #Basophils 0.03 10x3/uL (0.0-0.2); %Basophils 0.5 % (0.0-1.0); %Eosinophils 5.4 % (0.0-10.0); %Lymphocytes 26.3 % (21.0-51.0); %Monocytes 13.3 % (0.0-10.0); %Neutrophils 53.6 % (42.0-75.0); Hematocrit 35.9 % (42.0-52.0); Hemoglobin 11.7 g/dL (14.0-18.0); Mean Corpuscular HGB CONC 32.6 g/dL (32.0-36.0); Mean Corpuscular Hemoglobin 31.3 pg (27.0-31.0); Mean Platelet Volume 11.5 fL (7.4-10.4); Platelet Count 174 10x3/uL (130-400); RBC Distribution Width 12.9 % (11.5-14.5); Red Blood Cell (RBC) Count 3.74 mill/uL (4.70-6.10)
[2024-01-27 06:23] LABS: Anion Gap 9 mmol/L (10-20); BUN (Urea Nitrogen) 9 mg/dL (8.4-25.7); Calc. Creatinine Clearance 199 mL/min (70-130); Calcium 8.6 mg/dL (7.8-10.44); Carbon Dioxide 25 mmol/L (22-29); Chloride 107 mmol/L (98-107); Estimated GFR 103; Glucose 179 mg/dL (70-105); Potassium 3.9 mmol/L (3.5-5.1); Sodium 137 mmol/L (136-145)
[2024-01-28 10:57] LABS: #Basophils 0.03 10x3/uL (0.0-0.2); %Basophils 0.5 % (0.0-1.0); %Lymphocytes 18.5 % (21.0-51.0); %Monocytes 9.2 % (0.0-10.0); %Neutrophils 66.9 % (42.0-75.0); Hematocrit 38.2 % (42.0-52.0); Hemoglobin 12.4 g/dL (14.0-18.0); Mean Corpuscular HGB CONC 32.5 g/dL (32.0-36.0); Mean Corpuscular Hemoglobin 31.3 pg (27.0-31.0); Mean Corpuscular Volume 96.5 fL (78.0-98.0); Mean Platelet Volume 10.8 fL (7.4-10.4); Platelet Count 196 10x3/uL (130-400); RBC Distribution Width 12.8 % (11.5-14.5); Red Blood Cell (RBC) Count 3.96 mill/uL (4.70-6.10)
[2024-01-28 11:07] LABS: Anion Gap 11 mmol/L (10-20); BUN (Urea Nitrogen) 8 mg/dL (8.4-25.7); Calc. Creatinine Clearance 187 mL/min (70-130); Carbon Dioxide 27 mmol/L (22-29); Chloride 103 mmol/L (98-107); Estimated GFR 101; Glucose 189 mg/dL (70-105); Potassium 4.1 mmol/L (3.5-5.1); Sodium 137 mmol/L (136-145)
[2024-01-28] MEDS: Vancomycin (BATCH) 1.75 GM in Premix 1 BAG IVPB SCH (20:33)
[2024-01-29 11:50] VITALS: BP 131/74; TEMP 98.2
== END 2024-01-29 12:30 | disposition home or self-care (01) | DRG 603 ==
LOC: ERS 19:39 → T4-A 01-25 01:33 → OBSVTOIN 01-26 11:11
PROVIDERS: ADMIT Internal Medicine; ATTEND Student in an Organized Health Care Education/Training Program
DX: L03.116 Cellulitis of left lower limb (principal); I50.32 Chronic diastolic (congestive) heart failure; Z68.42 Body mass index [BMI] 45.0-49.9, adult; I25.10 Atherosclerotic heart disease of native coronary artery without angina pectoris; J44.9 Chronic obstructive pulmonary disease, unspecified; E11.9 Type 2 diabetes mellitus without complications; I11.0 Hypertensive heart disease with heart failure; E66.01 Morbid (severe) obesity due to excess calories; Z86.73 Personal history of transient ischemic attack (TIA), and cerebral infarction without residual deficits; Z79.82 Long term (current) use of aspirin; Z79.899 Other long term (current) drug therapy; Z79.4 Long term (current) use of insulin
CPT/HCPCS: 36415; 36416; 74177; 80048; 80053; 80202; 81001; 82565; 83605; 85025; 86141; 87040; 87081; 87086; 96365; 96366; 96372; 96375; 96376; 97139; G0378; J0692; J0696; J1650; J1815; J1885; J2272; J3370; Q9967

== ENCOUNTER 2024-02-21 17:37 | Inpatient (IN) | payer OTHER ==
[~2024-02-21 17:37] MED LIST changes: -Iopamidol 370 76% 100 ML VIAL ONE; +Iopamidol-370 76% 500 ML MDV (1 ML CHARGE) ONE
[2024-02-21 18:54] LABS: #Basophils 0.04 10x3/uL (0.0-0.2); %Basophils 0.4 % (0.0-1.0); %Eosinophils 5.6 % (0.0-10.0); %Monocytes 10.6 % (0.0-10.0); Hematocrit 36.4 % (42.0-52.0); Hemoglobin 12.1 g/dL (14.0-18.0); Mean Corpuscular HGB CONC 33.2 g/dL (32.0-36.0); Mean Corpuscular Hemoglobin 30.8 pg (27.0-31.0); Mean Corpuscular Volume 92.6 fL (78.0-98.0); Platelet Count 163 10x3/uL (130-400); RBC Distribution Width 12.9 % (11.5-14.5); Red Blood Cell (RBC) Count 3.93 mill/uL (4.70-6.10)
[2024-02-21] MEDS ORDERED: Acetaminophen 500 MG TAB ONE (19:06)
[2024-02-21] MEDS ORDERED: Morphine 4 MG/ML VIAL ONE (19:07)
[2024-02-21] MEDS ORDERED: Piperacillin/Tazobactam 4.5 GM VIAL ONE (19:07)
[2024-02-21] MEDS ORDERED: Ondansetron PF 4 MG/2 ML Vial ONE (19:07)
[2024-02-21] MEDS ORDERED: Sodium Chloride 0.9% 100 ML ONE (19:07)
[2024-02-21 20:02] LABS: ALT (SGPT) 18 U/L (8-55); AST (SGOT) 13 U/L (5-34); Albumin 3.6 g/dL (3.5-5.0); Alkaline Phosphatase 94 U/L (40-110); Anion Gap 16 mmol/L (10-20); BUN (Urea Nitrogen) 11 mg/dL (8.4-25.7); Bilirubin, Total 0.3 mg/dL (0.2-1.2); Calc. Creatinine Clearance 0 mL/min (70-130); Calcium 8.8 mg/dL (7.8-10.44); Carbon Dioxide 21 mmol/L (22-29); Chloride 105 mmol/L (98-107); Estimated GFR 98; Globulin 3.2 g/dL (2.4-3.5); Glucose 290 mg/dL (70-105); Potassium 3.7 mmol/L (3.5-5.1); Protein, Total 6.8 g/dL (6.0-8.3); Sodium 138 mmol/L (136-145)
[2024-02-21 21:31] LABS: Lactic Acid 1.63 mmol/L (0.5-2.2)
[2024-02-21] MEDS ORDERED: Acetaminophen 325 MG TAB PO PRN (21:40)
[2024-02-21] MEDS ORDERED: traMADol HCl 50 MG TAB PO PRN (21:40)
[2024-02-21] MEDS ORDERED: Ondansetron PF 4 MG/2 ML Vial IVP PRN (21:40)
[2024-02-21] MEDS ORDERED: Acetaminophen 650 MG Suppository PR PRN (21:40)
[2024-02-21] MEDS ORDERED: Ondansetron ODT 4 MG TAB PO PRN (21:40)
[2024-02-21] MEDS: Clindamycin/D5W 900 MG in Premix 1 BAG IVPB SCH (22:33)
[2024-02-21] MEDS: Clotrimazole 1 % Cream 30 GM TUBE TOP SCH (22:33)
[2024-02-21 22:34] VITALS: BMI 43.9
[2024-02-21] MEDS: traMADol HCl 50 MG TAB PO PRN (22:43)
[2024-02-21] MEDS: Vancomycin (BATCH) 2.5 GM in Premix 1 BAG IVPB SCH (22:43)
[2024-02-21] MEDS ORDERED: Piperacillin/Tazobactam 4.5 GM in Sodium Chloride 0.9% 100 ML IVPB SCH (23:59)
[2024-02-22] MEDS ORDERED: Morphine 2 MG/ML VIAL SLOW IVP PRN (00:12)
[2024-02-22] MEDS: Morphine 4 MG/ML VIAL SLOW IVP PRN (00:27)
[2024-02-22] MEDS: Piperacillin/Tazobactam 3.375 GM in Sodium Chloride 0.9% 100 ML IVPB SCH (00:30)
[2024-02-22] MEDS ORDERED: Dextrose 50% Abboject 50 ML SYRINGE SLOW IVP PRN (00:58)
[2024-02-22] MEDS ORDERED: Dextrose 5% in Water 1,000 ML IV PRN (00:58)
[2024-02-22] MEDS ORDERED: Glucagon 1 MG/ML KIT IM PRN (00:58)
[2024-02-22] MEDS: Insulin Lispro 100 UNIT/ML 10 ML VIAL SC PRN (05:00)
[2024-02-22 07:13] LABS: #Basophils 0.04 10x3/uL (0.0-0.2); %Basophils 0.6 % (0.0-1.0); %Eosinophils 7.7 % (0.0-10.0); %Monocytes 13.6 % (0.0-10.0); %Neutrophils 49.5 % (42.0-75.0); Hematocrit 35.4 % (42.0-52.0); Hemoglobin 11.8 g/dL (14.0-18.0); Mean Corpuscular HGB CONC 33.3 g/dL (32.0-36.0); Mean Corpuscular Hemoglobin 30.8 pg (27.0-31.0); Mean Corpuscular Volume 92.4 fL (78.0-98.0); Mean Platelet Volume 10.5 fL (7.4-10.4); Platelet Count 141 10x3/uL (130-400); RBC Distribution Width 13.2 % (11.5-14.5); Red Blood Cell (RBC) Count 3.83 mill/uL (4.70-6.10)
[2024-02-22 07:37] LABS: Vancomycin, Random 11.4 ug/mL (See Comment)
[2024-02-22 07:40] LABS: Anion Gap 12 mmol/L (10-20); BUN (Urea Nitrogen) 11 mg/dL (8.4-25.7); Calc. Creatinine Clearance 162 mL/min (70-130); Calcium 8.1 mg/dL (7.8-10.44); Carbon Dioxide 25 mmol/L (22-29); Chloride 104 mmol/L (98-107); Estimated GFR 97; Glucose 270 mg/dL (70-105); Potassium 3.8 mmol/L (3.5-5.1); Sodium 137 mmol/L (136-145)
[2024-02-22] MEDS: Enoxaparin 40 MG (0.4 mL) SYRINGE SC SCH (08:16)
[2024-02-22] MEDS: Lisinopril 5 MG TAB PO SCH (08:16)
[2024-02-22] MEDS: Ranolazine ER 500 MG TAB PO SCH (08:17)
[2024-02-22] MEDS: Isosorbide Mononitrate 30 MG ER.TAB PO SCH (08:17)
[2024-02-22] MEDS: Carvedilol 6.25 MG TAB PO SCH (08:17)
[2024-02-22] MEDS: Aspirin Chewable 81 MG TAB PO SCH (08:17)
[2024-02-22] MEDS: Gabapentin 100 MG CAP PO SCH (08:17)
[2024-02-22] MEDS: Clopidogrel Bisulfate 75 MG TAB PO SCH (08:17)
[2024-02-22] MEDS: Amlodipine 10 MG TAB PO SCH (08:17)
[2024-02-22] MEDS: Insulin Glargine 30 UNITS/0.3 ML VIAL SC SCH (08:18)
[2024-02-22] MEDS: Vancomycin (BATCH) 1.5 GM in Premix 1 BAG IVPB SCH (10:51)
[2024-02-22] MEDS: Ketoconazole 2% Cream 15 gm Tube TOP SCH (14:41)
[2024-02-22] MEDS: Terbinafine 250 MG TAB PO SCH (14:41)
[2024-02-22] MEDS: Atorvastatin Calcium 40 MG TAB PO SCH (20:51)
[2024-02-22] MEDS ORDERED: Nystatin/Triamcinolone Cream 15 GM TUBE TOP SCH (21:00)
[2024-02-23] MEDS ORDERED: diphenhydrAMINE 50 MG/ML VIAL IVP PRN (08:43)
[2024-02-23 12:42] LABS: #Basophils 0.03 10x3/uL (0.0-0.2); %Basophils 0.4 % (0.0-1.0); %Eosinophils 5.3 % (0.0-10.0); %Lymphocytes 25.7 % (21.0-51.0); %Monocytes 11.3 % (0.0-10.0); %Neutrophils 56.4 % (42.0-75.0); Hematocrit 32.8 % (42.0-52.0); Hemoglobin 10.7 g/dL (14.0-18.0); Mean Corpuscular HGB CONC 32.6 g/dL (32.0-36.0); Mean Corpuscular Hemoglobin 31.1 pg (27.0-31.0); Mean Corpuscular Volume 95.3 fL (78.0-98.0); Mean Platelet Volume 9.8 fL (7.4-10.4); Platelet Count 156 10x3/uL (130-400); RBC Distribution Width 13.4 % (11.5-14.5); Red Blood Cell (RBC) Count 3.44 mill/uL (4.70-6.10)
[2024-02-23 13:12] LABS: Anion Gap 11 mmol/L (10-20); BUN (Urea Nitrogen) 10 mg/dL (8.4-25.7); Calc. Creatinine Clearance 169 mL/min (70-130); Calcium 8.3 mg/dL (7.8-10.44); Carbon Dioxide 25 mmol/L (22-29); Chloride 105 mmol/L (98-107); Estimated GFR 99; Glucose 174 mg/dL (70-105); Potassium 3.8 mmol/L (3.5-5.1); Sodium 137 mmol/L (136-145)
[2024-02-24 11:24] LABS: #Basophils 0.05 10x3/uL (0.0-0.2); %Basophils 0.6 % (0.0-1.0); %Eosinophils 6.2 % (0.0-10.0); %Lymphocytes 25.1 % (21.0-51.0); %Monocytes 13.5 % (0.0-10.0); %Neutrophils 53.8 % (42.0-75.0); Hematocrit 35.5 % (42.0-52.0); Hemoglobin 11.4 g/dL (14.0-18.0); Mean Corpuscular HGB CONC 32.1 g/dL (32.0-36.0); Mean Corpuscular Volume 96.5 fL (78.0-98.0); Mean Platelet Volume 10.2 fL (7.4-10.4); Platelet Count 155 10x3/uL (130-400); RBC Distribution Width 13.7 % (11.5-14.5); Red Blood Cell (RBC) Count 3.68 mill/uL (4.70-6.10)
[2024-02-24 11:45] LABS: Anion Gap 10 mmol/L (10-20); BUN (Urea Nitrogen) 9 mg/dL (8.4-25.7); Calc. Creatinine Clearance 166 mL/min (70-130); Calcium 8.5 mg/dL (7.8-10.44); Carbon Dioxide 25 mmol/L (22-29); Chloride 104 mmol/L (98-107); Estimated GFR 99; Glucose 194 mg/dL (70-105); Sodium 135 mmol/L (136-145); Vancomycin, Random 24.3 ug/mL (See Comment)
[2024-02-25 06:00] LABS: #Basophils 0.03 10x3/uL (0.0-0.2); %Basophils 0.5 % (0.0-1.0); %Eosinophils 6.3 % (0.0-10.0); %Lymphocytes 23.4 % (21.0-51.0); %Monocytes 13.5 % (0.0-10.0); %Neutrophils 55.4 % (42.0-75.0); Hemoglobin 11.1 g/dL (14.0-18.0); Mean Corpuscular HGB CONC 32.6 g/dL (32.0-36.0); Mean Corpuscular Hemoglobin 30.2 pg (27.0-31.0); Mean Corpuscular Volume 92.4 fL (78.0-98.0); Mean Platelet Volume 10.2 fL (7.4-10.4); Platelet Count 152 10x3/uL (130-400); RBC Distribution Width 13.8 % (11.5-14.5); Red Blood Cell (RBC) Count 3.68 mill/uL (4.70-6.10)
[2024-02-25 06:14] LABS: Anion Gap 10 mmol/L (10-20); BUN (Urea Nitrogen) 9 mg/dL (8.4-25.7); Calc. Creatinine Clearance 187 mL/min (70-130); Calcium 8.4 mg/dL (7.8-10.44); Carbon Dioxide 26 mmol/L (22-29); Chloride 103 mmol/L (98-107); Estimated GFR 102; Glucose 211 mg/dL (70-105); Potassium 3.7 mmol/L (3.5-5.1); Sodium 135 mmol/L (136-145)
[2024-02-26 06:36] LABS: Anion Gap 11 mmol/L (10-20); BUN (Urea Nitrogen) 8 mg/dL (8.4-25.7); Calc. Creatinine Clearance 189 mL/min (70-130); Calcium 8.4 mg/dL (7.8-10.44); Carbon Dioxide 25 mmol/L (22-29); Chloride 104 mmol/L (98-107); Estimated GFR 103; Glucose 114 mg/dL (70-105); Potassium 4.1 mmol/L (3.5-5.1); Sodium 136 mmol/L (136-145)
[2024-02-26 10:23] LABS: #Basophils Less than 0.03 10x3/uL (0.0-0.2); %Basophils 0.3 % (0.0-1.0); %Eosinophils 7.4 % (0.0-10.0); %Lymphocytes 22.8 % (21.0-51.0); %Monocytes 10.4 % (0.0-10.0); %Neutrophils 58.1 % (42.0-75.0); Hematocrit 35.6 % (42.0-52.0); Hemoglobin 11.6 g/dL (14.0-18.0); Mean Corpuscular HGB CONC 32.6 g/dL (32.0-36.0); Mean Corpuscular Hemoglobin 30.8 pg (27.0-31.0); Mean Corpuscular Volume 94.4 fL (78.0-98.0); Mean Platelet Volume 9.9 fL (7.4-10.4); Platelet Count 157 10x3/uL (130-400); RBC Distribution Width 14.1 % (11.5-14.5); Red Blood Cell (RBC) Count 3.77 mill/uL (4.70-6.10)
[2024-02-27 15:59] VITALS: BP 121/63; TEMP 98
== END 2024-02-27 15:15 | disposition home or self-care (01) | DRG 638 ==
LOC: SUATTDRO 17:37 → ERS 17:37 → T4-A 21:20 → OBSVTOIN 21:20
PROVIDERS: ADMIT Family Medicine; ATTEND Internal Medicine
DX: E11.628 Type 2 diabetes mellitus with other skin complications (principal); L03.315 Cellulitis of perineum; Z68.41 Body mass index [BMI] 40.0-44.9, adult; N49.2 Inflammatory disorders of scrotum; B35.6 Tinea cruris; I10 Essential (primary) hypertension; E78.5 Hyperlipidemia, unspecified; I25.10 Atherosclerotic heart disease of native coronary artery without angina pectoris; J44.9 Chronic obstructive pulmonary disease, unspecified; E66.01 Morbid (severe) obesity due to excess calories; B35.4 Tinea corporis; Z86.73 Personal history of transient ischemic attack (TIA), and cerebral infarction without residual deficits; I25.2 Old myocardial infarction; Z95.5 Presence of coronary angioplasty implant and graft
CPT/HCPCS: 36415; 36416; 74177; 80048; 80053; 80202; 83605; 85025; 87040; 96374; 96375; 97139; J1650; J1815; J2272; J2405; J2543; J3370; J3490; Q9967

== ENCOUNTER 2024-04-30 07:23 | Outpatient (CLI) | payer OTHER | END 2024-04-30 07:24 | disposition home or self-care (01) | LOC: BICULT 07:23 | DX: K43.2 Incisional hernia without obstruction or gangrene (principal) | CPT/HCPCS: 76705 ==

== ENCOUNTER 2024-06-05 13:38 | Inpatient (IN) | payer OTHER ==
[2024-06-05] MEDS ORDERED: Iopamidol-370 76% 500 ML MDV (1 ML CHARGE) ONE (14:57)
[2024-06-05 15:06] LABS: #Basophils Less than 0.03 10x3/uL (0.0-0.2); %Basophils 0.4 % (0.0-1.0); %Eosinophils 3.7 % (0.0-10.0); %Lymphocytes 14.2 % (21.0-51.0); %Monocytes 9.1 % (0.0-10.0); %Neutrophils 71.9 % (42.0-75.0); Hematocrit 46.4 % (42.0-52.0); Hemoglobin 15.8 g/dL (14.0-18.0); Mean Corpuscular HGB CONC 34.1 g/dL (32.0-36.0); Mean Corpuscular Hemoglobin 30.9 pg (27.0-31.0); Mean Corpuscular Volume 90.6 fL (78.0-98.0); Mean Platelet Volume 10.7 fL (7.4-10.4); Platelet Count 159 10x3/uL (130-400); RBC Distribution Width 13.4 % (11.5-14.5); Red Blood Cell (RBC) Count 5.12 mill/uL (4.70-6.10)
[2024-06-05 15:22] LABS: ALT (SGPT) 19 U/L (Less than 45); AST (SGOT) 26 U/L (11-34); Albumin 3.7 g/dL (3.1-4.5); Alkaline Phosphatase 78 U/L (40-110); Anion Gap 16 mmol/L (10-20); BUN (Urea Nitrogen) 12 mg/dL (8.4-25.7); Calc. Creatinine Clearance 0 mL/min (70-130); Calcium 8.7 mg/dL (7.8-10.44); Carbon Dioxide 20 mmol/L (22-29); Chloride 106 mmol/L (98-107); Estimated GFR 101; Globulin 3.6 g/dL (2.4-3.5); Glucose 211 mg/dL (70-105); Potassium 3.9 mmol/L (3.5-5.1); Protein, Total 7.3 g/dL (6.0-8.3); Sodium 138 mmol/L (136-145)
[2024-06-05 15:26] LABS: Troponin I Less than 0.010 ng/mL (< 0.028)
[2024-06-05] MEDS ORDERED: Ondansetron PF 4 MG/2 ML Vial ONE (16:17)
[2024-06-05] MEDS ORDERED: Morphine 2 MG/ML VIAL ONE (16:17)
[2024-06-05] MEDS ORDERED: Aspirin Chewable 81 MG TAB ONE (17:17)
[2024-06-05 17:50] LABS: Magnesium 1.9 mg/dL (1.6-2.6)
[2024-06-05 21:34] LABS: Acetaminophen Less than 10 mcg/mL (Less than 10); Alcohol Less than 10.0 mg/dL (Less than 10); Salicylate Less than 8.0 mg/dL (Less than 8.0)
[2024-06-05 21:43] LABS: Troponin I 0.014 ng/mL (< 0.028)
[2024-06-05] MEDS ORDERED: Ondansetron ODT 4 MG TAB PO PRN (23:24)
[2024-06-05] MEDS ORDERED: Ondansetron PF 4 MG/2 ML Vial IVP PRN (23:24)
[2024-06-05] MEDS ORDERED: Acetaminophen 325 MG TAB PO PRN (23:24)
[2024-06-05] MEDS ORDERED: Acetaminophen 650 MG Suppository PR PRN (23:24)
[2024-06-05] MEDS ORDERED: Calcium Carbonate 500 MG ChewTAB PO PRN (23:24)
[2024-06-05] MEDS ORDERED: Glucagon 1 MG/ML KIT IM PRN (23:26)
[2024-06-05] MEDS ORDERED: Dextrose 5% in Water 1,000 ML IV PRN (23:26)
[2024-06-05] MEDS ORDERED: Dextrose 50% Abboject 50 ML SYRINGE SLOW IVP PRN (23:26)
[2024-06-05 23:49] LABS: Hematocrit 44.1 % (42.0-52.0); Hemoglobin 14.4 g/dL (14.0-18.0); Platelet Count 165 10x3/uL (130-400)
[2024-06-06 00:22] LABS: Troponin I 0.011 ng/mL (< 0.028)
[2024-06-06 01:04] LABS: Amphetamine Not Detected (NotDetected); Barbiturates Screen Not Detected (NotDetected); Benzodiazepine Screen Not Detected (NotDetected); Cocaine Metabolite Screen Detected (NotDetected); Methadone Not Detected (NotDetected); Methamphetamine Not Detected (NotDetected); Opiate Screen Detected (NotDetected); Oxycodone Screen Not Detected (NotDetected); Phencyclidine (PCP) Not Detected (NotDetected); THC/Cannabinoid Screen Not Detected (NotDetected); Tricyclic Screen Not Detected (NotDetected)
[2024-06-06 01:25] VITALS: BMI 42.3
[2024-06-06] MEDS: Heparin 25,000 units/D5W 500 ML IVPB SCH (01:49)
[2024-06-06] MEDS: Heparin 10,000 UNITS/ 10 ML VIAL SLOW IVP SCH (01:49)
[2024-06-06] MEDS: traMADol HCl 50 MG TAB PO PRN (02:34)
[2024-06-06 05:23] LABS: #Basophils 0.03 10x3/uL (0.0-0.2); %Basophils 0.5 % (0.0-1.0); %Lymphocytes 27.8 % (21.0-51.0); %Monocytes 14.3 % (0.0-10.0); %Neutrophils 52.5 % (42.0-75.0); Hematocrit 42.7 % (42.0-52.0); Mean Corpuscular HGB CONC 32.8 g/dL (32.0-36.0); Mean Corpuscular Hemoglobin 30.6 pg (27.0-31.0); Mean Corpuscular Volume 93.4 fL (78.0-98.0); Mean Platelet Volume 10.6 fL (7.4-10.4); Platelet Count 160 10x3/uL (130-400); RBC Distribution Width 13.6 % (11.5-14.5); Red Blood Cell (RBC) Count 4.57 mill/uL (4.70-6.10)
[2024-06-06 05:53] LABS: Anion Gap 14 mmol/L (10-20); BUN (Urea Nitrogen) 11 mg/dL (8.4-25.7); Calc. Creatinine Clearance 163 mL/min (70-130); Carbon Dioxide 22 mmol/L (22-29); Chloride 107 mmol/L (98-107); Potassium 3.7 mmol/L (3.5-5.1); Sodium 139 mmol/L (136-145)
[2024-06-06 05:54] LABS: Estimated GFR 99; Glucose 266 mg/dL (70-105)
[2024-06-06] MEDS: Insulin Lispro 100 UNIT/ML 10 ML VIAL SC PRN ×2 (06:12→16:53)
[2024-06-06] MEDS: Amlodipine 10 MG TAB PO SCH (08:15)
[2024-06-06] MEDS: Lisinopril 5 MG TAB PO SCH (08:15)
[2024-06-06] MEDS: Famotidine 20 MG TAB PO SCH (08:15)
[2024-06-06] MEDS: Isosorbide Mononitrate 30 MG ER.TAB PO SCH (08:15)
[2024-06-06] MEDS: metFORMIN 500 MG TAB PO SCH (08:15)
[2024-06-06] MEDS: Carvedilol 6.25 MG TAB PO SCH (08:16)
[2024-06-06] MEDS: Famotidine/PF 20 mg/2ml Vial SLOW IVP SCH (08:16)
[2024-06-06] MEDS: Clopidogrel Bisulfate 75 MG TAB PO SCH (08:16)
[2024-06-06] MEDS: Gabapentin 100 MG CAP PO SCH (08:16)
[2024-06-06] MEDS: Insulin Glargine 30 UNITS/0.3 ML VIAL SC SCH (08:16)
[2024-06-06] MEDS: Ranolazine ER 500 MG TAB PO SCH (08:16)
[2024-06-06] MEDS: Morphine 2 MG/ML VIAL SLOW IVP PRN (14:16)
[2024-06-06] MEDS: Atorvastatin Calcium 40 MG TAB PO SCH (20:01)
[2024-06-07 06:01] LABS: #Basophils Less than 0.03 10x3/uL (0.0-0.2); %Basophils 0.4 % (0.0-1.0); %Eosinophils 4.8 % (0.0-10.0); %Lymphocytes 30.7 % (21.0-51.0); %Monocytes 13.2 % (0.0-10.0); %Neutrophils 50.2 % (42.0-75.0); Hemoglobin 13.6 g/dL (14.0-18.0); Mean Corpuscular HGB CONC 33.2 g/dL (32.0-36.0); Mean Corpuscular Hemoglobin 31.1 pg (27.0-31.0); Mean Corpuscular Volume 93.6 fL (78.0-98.0); Mean Platelet Volume 10.8 fL (7.4-10.4); Platelet Count 158 10x3/uL (130-400); RBC Distribution Width 13.6 % (11.5-14.5); Red Blood Cell (RBC) Count 4.38 mill/uL (4.70-6.10)
[2024-06-07 06:25] LABS: Anion Gap 14 mmol/L (10-20); BUN (Urea Nitrogen) 10 mg/dL (8.4-25.7); Calc. Creatinine Clearance 192 mL/min (70-130); Calcium 8.2 mg/dL (7.8-10.44); Carbon Dioxide 23 mmol/L (22-29); Chloride 107 mmol/L (98-107); Estimated GFR 105; Glucose 117 mg/dL (70-105); Potassium 3.7 mmol/L (3.5-5.1); Sodium 140 mmol/L (136-145)
[2024-06-07 08:40] VITALS: BP 169/78; TEMP 98.7
== END 2024-06-07 09:47 | disposition home or self-care (01) | DRG 392 ==
LOC: ERS 13:38 → ERHOLD 20:36 → OBS 06-06 01:08 → OBSVTOIN 06-06 15:36
PROVIDERS: ADMIT Student in an Organized Health Care Education/Training Program; ATTEND Internal Medicine
DX: R10.13 Epigastric pain (principal); I50.32 Chronic diastolic (congestive) heart failure; I5A Non-ischemic myocardial injury (non-traumatic); F14.10 Cocaine abuse, uncomplicated; I11.0 Hypertensive heart disease with heart failure; R07.89 Other chest pain; I25.10 Atherosclerotic heart disease of native coronary artery without angina pectoris; E78.5 Hyperlipidemia, unspecified; J44.9 Chronic obstructive pulmonary disease, unspecified; Z79.899 Other long term (current) drug therapy; Z79.84 Long term (current) use of oral hypoglycemic drugs; N28.1 Cyst of kidney, acquired; K42.9 Umbilical hernia without obstruction or gangrene; E11.65 Type 2 diabetes mellitus with hyperglycemia
CPT/HCPCS: 36415; 36416; 71045; 74177; 76705; 80048; 80053; 80306; 80307; 83605; 83690; 83735; 84484; 85025; 85730; 87428; 93005; 93010; 94760; 96374; 96375; 96376; G0378; J1644; J1815; J2272; J2405; Q9967

== ENCOUNTER 2024-11-25 03:32 | Emergency (ER) | payer OTHER ==
[2024-11-25 05:49] LABS: INR-International Normal Ratio 1.0; PTT 27.1 sec (22.9-36.1); Prothrombin Time 13.5 sec (12.0-14.7)
[2024-11-25 05:51] LABS: ALT (SGPT) 16 U/L (Less than 45); AST (SGOT) 25 U/L (11-34); Albumin 3.6 g/dL (3.1-4.5); Alkaline Phosphatase 81 U/L (40-110); Anion Gap 15 mmol/L (10-20); BUN (Urea Nitrogen) 11 mg/dL (8.4-25.7); Bilirubin, Total 0.5 mg/dL (0.3-1.2); Calc. Creatinine Clearance 0 mL/min (70-130); Calcium 8.6 mg/dL (7.8-10.44); Carbon Dioxide 20 mmol/L (22-29); Chloride 105 mmol/L (98-107); Globulin 3.4 g/dL (2.4-3.5); Glucose 208 mg/dL (70-105); Potassium 3.8 mmol/L (3.5-5.1); Sodium 136 mmol/L (136-145)
[2024-11-25 05:57] LABS: Troponin I 0.011 ng/mL (< 0.028)
[2024-11-25 10:26] LABS: #Basophils 0.05 10x3/uL (0.0-0.2); #Eosinophils 0.32 10x3/uL (0.0-0.7); #Monocytes 0.89 10x3/uL (0.11-0.59); #Neutrophils 4.80 10x3/uL (1.40-6.50); %Basophils 0.6 % (0.0-1.0); %Eosinophils 3.9 % (0.0-10.0); %Lymphocytes 24.2 % (21.0-51.0); %Monocytes 10.9 % (0.0-10.0); %Neutrophils 59.2 % (42.0-75.0); Hematocrit 42.4 % (42.0-52.0); Hemoglobin 14.2 g/dL (14.0-18.0); Mean Corpuscular Hemoglobin 30.7 pg (27.0-31.0); Mean Corpuscular Volume 91.6 fL (78.0-98.0); Platelet Count 166 10x3/uL (130-400); Red Blood Cell (RBC) Count 4.63 mill/uL (4.70-6.10); White Blood Cell (WBC) Count 8.13 10x3/uL (4.8-10.8)
[2024-11-25] MEDS ORDERED: Iopamidol-370 76% 500 ML MDV (1 ML CHARGE) ONE (11:12)
== END 2024-11-25 08:04 | disposition home or self-care (01) ==
LOC: ERS 03:32
DX: S20.211A Contusion of right front wall of thorax, initial encounter (principal); I10 Essential (primary) hypertension; E11.9 Type 2 diabetes mellitus without complications; J44.9 Chronic obstructive pulmonary disease, unspecified; I25.2 Old myocardial infarction; V40.5XXA Car driver injured in collision with pedestrian or animal in traffic accident, initial encounter; W55.22XA Struck by cow, initial encounter; Z86.73 Personal history of transient ischemic attack (TIA), and cerebral infarction without residual deficits
CPT/HCPCS: 36415; 70450; 71045; 71275; 72125; 74174; 80053; 84484; 85025; 85610; 85730; 86850; 86900; 86901; 93005; 96374; G0390

== ENCOUNTER 2024-11-29 19:24 | Emergency (ER) | payer OTHER ==
[2024-11-29] MEDS ORDERED: Magnesium 2 GM/50 ML BAG (IN WATER) ONE (19:47)
[2024-11-29 19:53] LABS: #Basophils 0.04 10x3/uL (0.0-0.2); #Eosinophils 0.33 10x3/uL (0.0-0.7); #Monocytes 0.76 10x3/uL (0.11-0.59); #Neutrophils 4.77 10x3/uL (1.40-6.50); %Basophils 0.5 % (0.0-1.0); %Eosinophils 4.2 % (0.0-10.0); %Lymphocytes 24.7 % (21.0-51.0); %Monocytes 9.6 % (0.0-10.0); %Neutrophils 60.2 % (42.0-75.0); Hematocrit 44.1 % (42.0-52.0); Hemoglobin 14.5 g/dL (14.0-18.0); Mean Corpuscular Hemoglobin 30.2 pg (27.0-31.0); Mean Corpuscular Volume 91.9 fL (78.0-98.0); Platelet Count 176 10x3/uL (130-400); Red Blood Cell (RBC) Count 4.80 mill/uL (4.70-6.10); White Blood Cell (WBC) Count 7.92 10x3/uL (4.8-10.8)
[2024-11-29 20:08] LABS: INR-International Normal Ratio 1.1; PTT 31.8 sec (22.9-36.1); Prothrombin Time 13.8 sec (12.0-14.7)
[2024-11-29 20:12] LABS: ALT (SGPT) 21 U/L (Less than 45); AST (SGOT) 18 U/L (11-34); Albumin 3.5 g/dL (3.1-4.5); Alkaline Phosphatase 80 U/L (40-110); Anion Gap 14 mmol/L (10-20); BUN (Urea Nitrogen) 13 mg/dL (8.4-25.7); Bilirubin, Total 0.6 mg/dL (0.3-1.2); Calc. Creatinine Clearance 0 mL/min (70-130); Calcium 8.3 mg/dL (7.8-10.44); Carbon Dioxide 21 mmol/L (22-29); Chloride 106 mmol/L (98-107); Globulin 3.3 g/dL (2.4-3.5); Glucose 367 mg/dL (70-105); Lipase 48 U/L (8-78); Magnesium 1.5 mg/dL (1.6-2.6); Potassium 4.0 mmol/L (3.5-5.1); Sodium 137 mmol/L (136-145)
[2024-11-29 20:13] LABS: Acetaminophen Less than 10 mcg/mL (Less than 10); Salicylate Less than 8.0 mg/dL (Less than 8.0)
[2024-11-29 20:33] LABS: Troponin I Less than 0.010 ng/mL (< 0.028)
[2024-11-29 21:02] LABS: Actual Bicarbonate (HCO3v) 24.3 mEq/L (22-28); Base Excess 0.1 mEq/L (-2.0 to +3.0); Calcium, Ionized (venous) 1.11 mmol/L (1.16-1.32); Chloride (VBG) 102 mmol/L (98-106); Hematocrit-VBG 46 % (42.0-52.0); Hemoglobin (Hb) 15.6 g/dL (13.1-17.2); Potassium (VBG) 3.86 mmol/L (3.70-5.30); Sodium 139 mmol/L (133-146)
== END 2024-11-29 22:41 | disposition home or self-care (01) ==
LOC: ERS 19:24
DX: R07.89 Other chest pain (principal); I10 Essential (primary) hypertension; E11.9 Type 2 diabetes mellitus without complications; J44.9 Chronic obstructive pulmonary disease, unspecified; Z55.6 Problems related to health literacy; Z95.5 Presence of coronary angioplasty implant and graft; Z86.73 Personal history of transient ischemic attack (TIA), and cerebral infarction without residual deficits; Z79.84 Long term (current) use of oral hypoglycemic drugs; Z79.51 Long term (current) use of inhaled steroids; Z79.4 Long term (current) use of insulin; Z79.85 Long-term (current) use of injectable non-insulin antidiabetic drugs; Z79.899 Other long term (current) drug therapy
CPT/HCPCS: 36415; 36416; 71045; 71275; 80053; 80307; 82010; 82805; 83690; 83735; 83880; 84484; 85025; 85610; 85730; 93005; 96365; 96375; J2270; J3475; Q9967

== ENCOUNTER 2025-03-05 14:00 | Emergency (ER) | payer OTHER ==
[2025-03-05 14:18] LABS: #Basophils 0.04 10x3/uL (0.0-0.2); #Eosinophils 0.34 10x3/uL (0.0-0.7); #Monocytes 1.01 10x3/uL (0.11-0.59); #Neutrophils 6.62 10x3/uL (1.40-6.50); %Basophils 0.4 % (0.0-1.0); %Eosinophils 3.1 % (0.0-10.0); %Lymphocytes 26.5 % (21.0-51.0); %Monocytes 9.2 % (0.0-10.0); %Neutrophils 60.3 % (42.0-75.0); Hematocrit 46.2 % (42.0-52.0); Hemoglobin 15.5 g/dL (14.0-18.0); Mean Corpuscular Hemoglobin 30.2 pg (27.0-31.0); Mean Corpuscular Volume 90.1 fL (78.0-98.0); Platelet Count 204 10x3/uL (130-400); Red Blood Cell (RBC) Count 5.13 mill/uL (4.70-6.10); White Blood Cell (WBC) Count 10.96 10x3/uL (4.8-10.8)
[2025-03-05 14:40] LABS: ALT (SGPT) 21 U/L (Less than 45); AST (SGOT) 35 U/L (11-34); Albumin 4.1 g/dL (3.1-4.5); Alkaline Phosphatase 86 U/L (40-110); Anion Gap 17 mmol/L (10-20); BUN (Urea Nitrogen) 10 mg/dL (8.4-25.7); Bilirubin, Total 0.7 mg/dL (0.3-1.2); Calc. Creatinine Clearance 0 mL/min (70-130); Calcium 9.3 mg/dL (7.8-10.44); Carbon Dioxide 21 mmol/L (22-29); Chloride 105 mmol/L (98-107); Globulin 4.0 g/dL (2.4-3.5); Glucose 141 mg/dL (70-105); Lipase 58 U/L (8-78); Potassium 5.1 mmol/L (3.5-5.1); Sodium 138 mmol/L (136-145)
[2025-03-05] MEDS ORDERED: Droperidol 5 MG/2 ML VIAL ONE (14:45)
[2025-03-05] MEDS ORDERED: Lidocaine 1% w/Epinephrine 1:100K 20 ML VIAL ONE (14:53)
[2025-03-05 15:29] LABS: Acetaminophen Less than 10 mcg/mL (Less than 10); Salicylate Less than 8.0 mg/dL (Less than 8.0)
[2025-03-05] MEDS ORDERED: Bacitracin 1 PK ONE (17:04)
== END 2025-03-05 17:13 | disposition home or self-care (01) ==
LOC: ERS 14:00
DX: S81.812A Laceration without foreign body, left lower leg, initial encounter (principal); R07.9 Chest pain, unspecified; R51.9 Headache, unspecified; R42 Dizziness and giddiness; R29.701 NIHSS score 1; I10 Essential (primary) hypertension; E11.9 Type 2 diabetes mellitus without complications; J44.9 Chronic obstructive pulmonary disease, unspecified; W01.198A Fall on same level from slipping, tripping and stumbling with subsequent striking against other object, initial encounter; Z86.73 Personal history of transient ischemic attack (TIA), and cerebral infarction without residual deficits; Z79.84 Long term (current) use of oral hypoglycemic drugs; Z79.4 Long term (current) use of insulin; Z79.899 Other long term (current) drug therapy
CPT/HCPCS: 12002; 70450; 71045; 80053; 80307; 83690; 84484; 85025; 93005; 96374; J1790